=== PATIENT | male | born 1955 | race Caucasian/White ===

== ENCOUNTER 2017-08-16 13:28 | Day surgery (SDC) | payer OTHER ==
[2017-08-16] MEDS ORDERED: ONDANSETRON PF 4 MG/2 ML VIAL. (16:21)
[2017-08-16] MEDS ORDERED: fentaNYL PF VIAL 100 MCG/2 ML VIAL ×2 (16:21→18:44)
[2017-08-16] MEDS ORDERED: PROPOFOL 20 ML IV (16:21)
[2017-08-16] MEDS ORDERED: DEXAMETHASONE SOD PHOS 20 MG/5 ML VIAL. (16:21)
[2017-08-16] MEDS ORDERED: ROCURONIUM 50 MG/5 ML VIAL. (17:03)
[2017-08-16] MEDS: CHLORHEXIDINE 0.12% 15 ML MOUTHWASH. SWSP (17:25)
[2017-08-16] MEDS: BUPIVACAINE-EPI 0.25%-1:200000 50 ML VIAL. (17:25)
[2017-08-16] MEDS: GELATIN SPONGE SIZE 100. (17:39)
[2017-08-16] MEDS ORDERED: GLYCOPYRROLATE 1 MG/5 ML VIAL. (18:00)
[2017-08-16] MEDS: fentaNYL PF VIAL 100 MCG/2 ML VIAL IV ×2 (18:54→19:24)
[2017-08-16] MEDS: IV RINGERS,LACTATED 1000ML 1,000 ML IV (18:54)
[2017-08-16] MEDS ORDERED: PROCHLORPERAZINE 10 MG/2 ML VIAL. IV (19:00)
[2017-08-16] MEDS ORDERED: MORPHINE SULFATE 4 MG/ML DISP.SYRIN. IV (19:00)
[2017-08-16] MEDS ORDERED: ONDANSETRON PF 4 MG/2 ML VIAL. IV (19:00)
[2017-08-16] MEDS ORDERED: LIDOCAINE 1% PF 2 ML VIAL. ID (19:00)
[2017-08-16] MEDS ORDERED: fentaNYL PF VIAL 100 MCG/2 ML VIAL IV (19:00)
[2017-08-16] MEDS: HYDROcodone/APAP 5/325MG 1 TAB TABLET PO (19:23)
[2017-08-17] MEDS ORDERED: fentaNYL PF VIAL 100 MCG/2 ML VIAL (14:19)
[2017-08-18 08:04] LABS: POC GLUCOSE 101 mg/dL (70-99)
== END 2017-08-16 20:21 | disposition home or self-care (01) ==
LOC: SURG 13:28
DX: K02.9 Dental caries, unspecified (principal); I12.9 Hypertensive chronic kidney disease with stage 1 through stage 4 chronic kidney disease, or unspecified chronic kidney disease; E11.22 Type 2 diabetes mellitus with diabetic chronic kidney disease; N18.9 Chronic kidney disease, unspecified; G47.33 Obstructive sleep apnea (adult) (pediatric)
CPT/HCPCS: 41874; J0690; J1100; J2405; J2704; J3010; J3490

== ENCOUNTER 2021-09-24 00:32 | Inpatient (IN) | payer MEDICARE, OTHER ==
[~2021-09-24] VITALS: Ht 180.3 cm; Wt 111.5 kg
[~2021-09-24 00:32] MED LIST: ACET325T9 PO; ERGO500027 PO; GABA-689 PO; LEVE500T6 PO; LISI2.5T12 PO; PRAV40TA2 PO; RANI150T2 PO; SERT100T PO; TRAM50TA PO
[2021-09-24] MEDS ORDERED: FUROSEMIDE 40 MG/4 ML VIAL. IVP ONE (01:30)
--- NOTE | 2021-09-24 01:31 | RAD ---
Chest radiograph 09/24/2021 1:13 AM INDICATION: Shortness of breath, CHF COMPARISON: None available TECHNIQUE: Frontal and lateral views of the chest are provided. FINDINGS: The cardiomediastinal silhouette is within normal limits. Median sternotomy changes are present. Left chest wall cardiac device is identified with leads projecting over the right atrium and right ventri lalo. There are no pleural effusions. There is no pulmonary vascular congestion. There is no pneumothorax. The lungs are clear. COPD changes are present. No significant osseous abnormality is identified. IMPRESSION: COPD changes without acute cardiopulmonary process. Electronically signed by: Katheryn Head MD (09/24/2021 1:29 AM) RITA
[2021-09-24 01:46] LABS: BASO # 0.1 x10^3/uL (0.0-0.2); BASO % 1 % (0-3); EOS # 0.3 x10^3/uL (0.0-0.7); EOS % 4 % (0-3); HEMATOCRIT 27.9 % (39.0-53.0); HEMOGLOBIN 9.8 g/dL (13.0-17.5); LYMPH # 1.5 x10^3/uL (1.0-4.8); LYMPH % 18 % (24-48); MEAN CORPUSCULAR HEMOGLOBIN 34 pg (25-35); MEAN CORPUSCULAR HGB CONC 35 g/dL (31-37); MEAN CORPUSCULAR VOLUME 98 fL (79-100); MONO # 0.5 x10^3/uL (0.0-1.1); MONO % 6 % (0-9); NEUT # 5.8 x10^3/uL (1.8-7.7); NEUT % 71 % (31-73); PLATELET COUNT 131 x10^3/uL (140-400); RED BLOOD COUNT 2.85 x10^6/uL (4.30-5.70); RED CELL DISTRIBUTION WIDTH 14.4 % (11.5-14.5); WHITE BLOOD COUNT 8.3 x10^3/uL (4.0-11.0)
[2021-09-24 01:55] LABS: CALCIUM 7.4 mg/dL (8.5-10.1); CREATININE 10.3 mg/dL (0.7-1.3); GFR 5.1; POTASSIUM 5.1 mmol/L (3.5-5.1)
[2021-09-24 02:03] LABS: ALBUMIN 3.2 g/dL (3.4-5.0); ALBUMIN/GLOBULIN RATIO 0.9 (1.0-1.7); TOTAL BILIRUBIN 0.3 mg/dL (0.2-1.0); TOTAL PROTEIN 6.6 g/dL (6.4-8.2)
[2021-09-24] MEDS ORDERED: IPRATRPIUM/ALBUTEROL 0.5/2.5MG 3 ML NEBU. NEB ONE (02:30)
--- NOTE | 2021-09-24 03:24 | EKG ---
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
[2021-09-24] MEDS ORDERED: DOCU100C28 PO (04:05)
[2021-09-24] MEDS ORDERED: MELA3TAB43 PO (04:05)
[2021-09-24] MEDS ORDERED: ERGO500089 PO (04:05)
[2021-09-24] MEDS ORDERED: MECL12.582 PO (04:05)
[2021-09-24] MEDS ORDERED: FOLI1CAP10 PO (04:05)
[2021-09-24] MEDS ORDERED: OMEG100021 PO (04:05)
[2021-09-24] MEDS ORDERED: LEVE500T21 PO (04:05)
[2021-09-24] MEDS ORDERED: CARV25TA2 PO (04:05)
[2021-09-24] MEDS ORDERED: TRAM50TA PO (04:05)
[2021-09-24] MEDS ORDERED: VITA1TAB19 PO (04:05)
[2021-09-24] MEDS ORDERED: CALC667T4 PO (04:05)
[2021-09-24] MEDS ORDERED: OMEP20CA16 PO (04:05)
[2021-09-24] MEDS ORDERED: ATOR80TA72 PO (04:05)
[2021-09-24] MEDS ORDERED: FURO40TA4 PO (04:05)
--- NOTE | 2021-09-24 04:24 | PHYS DOC ---
Past Medical History Additional Past Medical Histor: PACEMAKER/DEFIB Past Surgical History: Angioplasty General Adult EDM: Chief Complaint: SHORTNESS OF BREATH HPI: HPI: Patient is a 66-year-old male who was supposed to be on dialysis but abruptly quit on his own several weeks ago who presents today with shortness of breath. Past medical history of CHF. Patient has difficulty sleeping while laying flat. No fever or chills. No cough or sputum production. Significant smoking history. No chest pain currently. Review of Systems: Review of Systems: Constitutional: Denies fever or chills. [] Eyes: Denies change in visual acuity. [] HENT: Denies nasal congestion or sore throat. [] Respiratory: Denies cough or shortness of breath. [] Cardiovascular: No chest pain, positive for orthopnea GI: Denies abdominal pain, nausea, vomiting, bloody stools or diarrhea. [] : Denies dysuria. [] Musculoskeletal: Denies back pain or joint pain. [] Integument: Denies rash. [] Neurologic: Denies headache, focal weakness or sensory changes. [] Endocrine: Denies polyuria or polydipsia. [] Lymphatic: Denies swollen glands. [] Psychiatric: Denies depression or anxiety. [] Heart Score: C/O Chest Pain: No Risk Factors: Risk Factors: DM, Current or recent (<one month) smoker, HTN, HLP, family history of CAD, obesity. Risk Scores: Score 0 - 3: 2.5% MACE over next 6 weeks - Discharge Home Score 4 - 6: 20.3% MACE over next 6 weeks - Admit for Clinical Observation Score 7 - 10: 72.7% MACE over next 6 weeks - Early Invasive Strategies Current Medications: Current Medications Medications (Trade) Dose Ordered Sig/René Start Time Stop Time Status Last Admin Dose Admin Albuterol/ Ipratropium (Duoneb) 6 ml 1X ONCE 09/24/21 02:30 09/24/21 02:31 DC 09/24/21 03:09 6 ML Furosemide (Lasix) 60 mg 1X ONCE 09/24/21 01:30 09/24/21 01:31 DC 09/24/21 02:18 60 MG Lorazepam (Ativan Inj) 2 mg 1X ONCE 09/24/21 04:00 09/24/21 04:01 DC 09/24/21 04:03 2 MG Allergies: Allergies: Allergies Coded Allergies Type Severity Reaction Last Updated Verified No Known Drug Allergies 08/16/17 No Physical Exam: PE: Constitutional: Well developed, well nourished, no acute distress, non-toxic appearance. [] HENT: Normocephalic, atraumatic, bilateral external ears normal, oropharynx moist, no oral exudates, nose normal. [] Eyes: PERRLA, EOMI, conjunctiva normal, no discharge. [] Neck: Normal range of motion, no tenderness, supple, no stridor. [] Cardiovascular:Heart rate regular rhythm, no murmur [] Lungs & Thorax: Diminished breath sounds bilateral Abdomen: Bowel sounds normal, soft, no tenderness, no masses, no pulsatile masses. [] Skin: Warm, dry, no erythema, no rash. [] Back: No tenderness, no CVA tenderness. [] Extremities: No tenderness, no cyanosis, no clubbing, ROM intact, no edema. [] Neurologic: Alert and oriented X 3, normal motor function, normal sensory function, no focal deficits noted. [] Psychologic: Affect normal, judgement normal, mood normal. [] Current Patient Data: Labs: Laboratory Tests Test 09/24/21 01:35 White Blood Count 8.3 x10^3/uL (4.0-11.0) Red Blood Count 2.85 x10^6/uL (4.30-5.70) L Hemoglobin 9.8 g/dL (13.0-17.5) L Hematocrit 27.9 % (39.0-53.0) L Mean Corpuscular Volume 98 fL (79-100) Mean Corpuscular Hemoglobin 34 pg (25-35) Mean Corpuscular Hemoglobin Concent 35 g/dL (31-37) Red Cell Distribution Width 14.4 % (11.5-14.5) Platelet Count 131 x10^3/uL (140-400) L Neutrophils (%) (Auto) 71 % (31-73) Lymphocytes (%) (Auto) 18 % (24-48) L Monocytes (%) (Auto) 6 % (0-9) Eosinophils (%) (Auto) 4 % (0-3) H Basophils (%) (Auto) 1 % (0-3) Neutrophils # (Auto) 5.8 x10^3/uL (1.8-7.7) Lymphocytes # (Auto) 1.5 x10^3/uL (1.0-4.8) Monocytes # (Auto) 0.5 x10^3/uL (0.0-1.1) Eosinophils # (Auto) 0.3 x10^3/uL (0.0-0.7) Basophils # (Auto) 0.1 x10^3/uL (0.0-0.2) Sodium Level 147 mmol/L (136-145) H Potassium Level 5.1 mmol/L (3.5-5.1) Chloride Level 112 mmol/L (98-107) H Carbon Dioxide Level 14 mmol/L (21-32) L Anion Gap 21 (6-14) H Blood Urea Nitrogen 91 mg/dL (8-26) H Creatinine 10.3 mg/dL (0.7-1.3) H Estimated GFR (Cockcroft-Gault) 5.1 BUN/Creatinine Ratio 9 (6-20) Glucose Level 157 mg/dL (70-99) H Lactic Acid Level 0.5 mmol/L (0.4-2.0) Calcium Level 7.4 mg/dL (8.5-10.1) L Total Bilirubin 0.3 mg/dL (0.2-1.0) Aspartate Amino Transferase (AST) 17 U/L (15-37) Alanine Aminotransferase (ALT) 23 U/L (16-63) Alkaline Phosphatase 59 U/L (46-116) Troponin I High Sensitivity 53 ng/L (4-75) KX-Sfe-M-Type Natriuretic Peptide > 72419 pg/mL (0-124) H Total Protein 6.6 g/dL (6.4-8.2) Albumin 3.2 g/dL (3.4-5.0) L Albumin/Globulin Ratio 0.9 (1.0-1.7) L Acetone Level Neg (NEG) Laboratory Tests 09/24/21 01:35 Laboratory Tests 09/24/21 01:35 Vital Signs: Vital Signs Date Time Temp Pulse Resp B/P (MAP) Pulse Ox O2 Delivery O2 Flow Rate FiO2 09/24/21 03:09 98 Room Air 09/24/21 00:54 97.8 82 22 211/95 (133) 97.8 EKG: EKG: [] Radiology/Procedures: Radiology/Procedures: [] Course & Med Decision Making: Course & Med Decision Making Pertinent Labs and Imaging studies reviewed. (See chart for details) Patient has multiple significant lab abnormalities. I suspect a lot of this is due to him abruptly quitting dialysis. The most crucial at this moment is his metabolic acidosis. Patient states that he was at 1 point supposed to be on bicarbonate pills. Therefore I will start him on sodium bicarb 3 A since he is refusing dialysis. Chest x-ray shows signs of COPD. Patient feels slightly better after DuoNeb treatments. BNP significantly elevated. Again difficult to determine its significance in the onset of renal failure not being treated with dialysis. Patient placed on Lasix as well. Dragon Disclaimer: Dragon Disclaimer: This electronic medical record was generated, in whole or in part, using a voice recognition dictation system. Departure Departure Impression: Primary Impression: Metabolic acidosis Additional Impressions: Orthopnea COPD exacerbation CHF exacerbation Disposition: ADMITTED INPATIENT Condition: STABLE Referrals: ROQUE STEINBERG DMD (PCP) ARUN GHOTRA MD September 24, 2021 04:24
[2021-09-24] MEDS ORDERED: SODIUM BICARBONATE VIAL 150 MEQ in IV STERILE WATER 1,000 ML IV SCH (05:00)
[2021-09-24 05:14] LABS: BACTERIA,URINE 0 /HPF (0-FEW); HYALINE CASTS, URINE OCCASIONAL /HPF; RBC,URINE OCC /HPF (0-2); SPERM,URINE PRESENT /HPF
[2021-09-24 05:21] LABS: BASE EXCESS ABG -14 mmol/L (-3-3); HCO3 ABG 12 mmol/L (21-28); PCO2 ABG 25 mmHg (35-46); PO2 ABG 72 mmHg (65-108); SAT O2 ABG 92 % (92-99)
[2021-09-24 05:26] LABS: FIO2 ABG 21
--- NOTE | 2021-09-24 08:10 | PDOC1 ---
History and Physical Date of Admission Date of Admission DATE: 09/24/21 TIME: 07:55 Identification/Chief Complaint Chief Complaint Shortness of breath Source Source: Caregiver, Patient History of Present Illness History of Present Illness Patient is a 66-year-old male with past medical history CHF, HTN, DM2, ESRD, who presents to the ED with complaints of shortness of breath for the past 4 days. He reports shortness of breath with exertion, orthopnea, and associated chest pain with deep inspiration. [facility] and tells me he was on hemodialysis for 2 years but took himself off recently. States that when the [facility] told him he could not receive a kidney transplant he no longer wanted to proceed with hemodialysis. Labs on admission showed WBC 8.3, hemoglobin 9.8, hematocrit 27.9, sodium 147, BUN 91, creatinine 10.3, CBG 157, a lbumin 3.2, proBNP >35,000. His ABG showed pH 7.29, PCO2 325, PO2 72, HCO3 12. His chest x-ray showed COPD changes without acute cardiopulmonary process. While in the ED patient was refusing to wear BiPAP. He will be admitted for further medical management. Past Medical History Past Medical History CHF, CAD, ESRD, DM2, HTN Past Surgical History Past Surgical History Pacemaker/AICD, angioplasty Family History Family History: Coronary Artery Disease Social History Smoke: Quit ALCOHOL: none Drugs: None Current Problem List Problem List Problems Medical Problems: (1) CHF exacerbation Status: Acute (2) COPD exacerbation Status: Acute (3) Metabolic acidosis Status: Acute (4) Orthopnea Status: Acute Current Medications Current Medications Current Medications Furosemide (Lasix) 60 mg 1X ONCE IVP Last administered on 09/24/21at 02:18; Start 09/24/21 at 01:30; Stop 09/24/21 at 01:31; Status DC Albuterol/ Ipratropium (Duoneb) 6 ml 1X ONCE NEB Last administered on 09/24/21at 03:09; Start 09/24/21 at 02:30; Stop 09/24/21 at 02:31; Status DC Lorazepam (Ativan Inj) 2 mg 1X ONCE IVP Last administered on 09/24/21at 04:03; Start 09/24/21 at 04:00; Stop 09/24/21 at 04:01; Status DC Sodium Bicarbonate 150 meq/Sterile Water 1,150 ml @ 125 mls/hr Q9H12M IV Last administered on 09/24/21at 05:28; Start 09/24/21 at 05:00; Stop 09/25/21 at 04:59 Active Scripts Active Reported Carvedilol 25 Mg Tablet 25 Mg PO BIDWMEALS B Complex (Vitamin B Complex) 1 Each Tablet 1 Tab PO DAILY 30 Days Tramadol Hcl 50 Mg Tablet 50 Mg PO BID PRN Renal Caps Softgel (Folic Acid/Vitamin B Comp W-C) 1 Mg Capsule 1 Cap PO DAILY 30 Days Omeprazole 20 Mg Capsule.dr 1 Cap PO DAILY Melatonin 3 Mg Tab.rapdis 1 Tab PO QHS 30 Days Meclizine Hcl 12.5 Mg Tablet 1 Tab PO BID Levetiracetam 500 Mg Tab.er.24h 500 Mg PO DAILY Furosemide 40 Mg Tablet 1 Tab PO DAILY Fish Oil 1,000 mg Softgel ([place]-3/Dha/Epa/Fish Oil) 1,000 Mg Capsule 1,000 Mg PO BID Vitamin D2 (Ergocalciferol (Vitamin D2)) 1,250 Mcg Capsule 1,250 Mcg PO WEEKLY Docusate Sodium 100 Mg Capsule 1 Cap PO BID 7 Days Calcium Acetate 667 Mg Tablet 3 Tab PO TID 30 Days Atorvastatin Calcium 80 Mg Tablet 80 Mg PO QHS Levetiracetam 500 Mg Tablet 63 Mg PO QHS Pravastatin Sodium 40 Mg Tablet 1 Tab PO QHS Zoloft (Sertraline Hcl) 100 Mg Tablet 1 Tab PO DAILY Tylenol (Acetaminophen) 325 Mg Tablet 650 Mg PO Q8HRS PRN Gabapentin (Gabapentin) 400 Mg Capsule 400 Mg PO BID Vitamin D2 (Ergocalciferol (Vitamin D2)) 50,000 Unit Capsule 1 Cap PO WEEKLY Ranitidine Hcl 150 Mg Tablet 150 Mg PO DAILY Lisinopril 2.5 Mg Tablet 1 Tab PO DAILY Tramadol Hcl 50 Mg Tablet 100 Mg PO BID PRN Allergies Allergies: Coded Allergies: No Known Drug Allergies (Unverified , 08/16/17) ROS Review of System GENERAL: No history of weight change, weakness or fevers. SKIN: No bruising, hair changes or rashes. EYES: No blurred, double or loss of vision. NOSE AND THROAT: No history of nosebleeds, hoarseness or sore throat. HEART: Chest pain. Denies palpitations. LUNGS: Shortness of breath, orthopnea. Denies hemoptysis or wheezing. GASTROINTESTINAL: Denies nausea, vomiting, abdominal pain. GENITOURINARY: Denies dysuria, frequency, urgency, hematuria. NEUROLOGIC: Denies history of numbness, tingling, tremor or weakness. PSYCHIATRIC: Denies anxiety, denies depression. ENDOCRINE: No history of heat or cold intolerance, polyuria or polydipsia. EXTREMITIES: Denies muscle weakness, joint pain, pain on walking or stiffness. Physical Exam Physical Exam General: Alert, Oriented X3, Cooperative, mild distress HEENT: Atraumatic, EOMI Lungs: Bibasilar rales Heart: RRR, no rubs. Pacer to left chest wall. Cardiovascular: S1, S2 Abdomen: Normal bowel sounds, Soft, No tenderness Extremities: No significant lower extremity edema Skin: No breakdown, No significant lesion Neuro: Normal speech, Sensation intact Psych/Mental Status: Mental status NL, Mood NL Vitals Vitals Vital Signs Date Time Temp Pulse Resp B/P (MAP) Pulse Ox O2 Delivery O2 Flow Rate FiO2 09/24/21 05:55 83 20 94 Room Air 09/24/21 03:30 186/88 (120) 09/24/21 01:30 98.2 98.2 Labs Labs Laboratory Tests Test 09/24/21 01:35 09/24/21 05:00 09/24/21 05:15 White Blood Count 8.3 x10^3/uL (4.0-11.0) Red Blood Count 2.85 x10^6/uL (4.30-5.70) Hemoglobin 9.8 g/dL (13.0-17.5) Hematocrit 27.9 % (39.0-53.0) Mean Corpuscular Volume 98 fL (79-100) Mean Corpuscular Hemoglobin 34 pg (25-35) Mean Corpuscular Hemoglobin Concent 35 g/dL (31-37) Red Cell Distribution Width 14.4 % (11.5-14.5) Platelet Count 131 x10^3/uL (140-400) Neutrophils (%) (Auto) 71 % (31-73) Lymphocytes (%) (Auto) 18 % (24-48) Monocytes (%) (Auto) 6 % (0-9) Eosinophils (%) (Auto) 4 % (0-3) Basophils (%) (Auto) 1 % (0-3) Neutrophils # (Auto) 5.8 x10^3/uL (1.8-7.7) Lymphocytes # (Auto) 1.5 x10^3/uL (1.0-4.8) Monocytes # (Auto) 0.5 x10^3/uL (0.0-1.1) Eosinophils # (Auto) 0.3 x10^3/uL (0.0-0.7) Basophils # (Auto) 0.1 x10^3/uL (0.0-0.2) Sodium Level 147 mmol/L (136-145) Potassium Level 5.1 mmol/L (3.5-5.1) Chloride Level 112 mmol/L (98-107) Carbon Dioxide Level 14 mmol/L (21-32) Anion Gap 21 (6-14) Blood Urea Nitrogen 91 mg/dL (8-26) Creatinine 10.3 mg/dL (0.7-1.3) Estimated GFR (Cockcroft-Gault) 5.1 BUN/Creatinine Ratio 9 (6-20) Glucose Level 157 mg/dL (70-99) Lactic Acid Level 0.5 mmol/L (0.4-2.0) Calcium Level 7.4 mg/dL (8.5-10.1) Total Bilirubin 0.3 mg/dL (0.2-1.0) Aspartate Amino Transf (AST/SGOT) 17 U/L (15-37) Alanine Aminotransferase (ALT/SGPT) 23 U/L (16-63) Alkaline Phosphatase 59 U/L (46-116) Troponin I High Sensitivity 53 ng/L (4-75) JY-Xgs-P-Type Natriuretic Peptide > 30001 pg/mL (0-124) Total Protein 6.6 g/dL (6.4-8.2) Albumin 3.2 g/dL (3.4-5.0) Albumin/Globulin Ratio 0.9 (1.0-1.7) Acetone Level Neg (NEG) Urine Collection Type Unknown Urine Color (Auto) Light yellow Urine Turbidity Clear Urine pH (Auto) 6.0 (<5.0-8.0) Urine Specific Shaw 1.016 (1.000-1.030) Urine Protein (Auto) 300 mg/dL (Negative) Urine Glucose (Auto)(UA) 200 mg/dL (Negative) Urine Ketones (Auto) Negative mg/dL (Negative) Urine Blood (Auto) Small (Negative) Urine Nitrite Negative (Negative) Urine Bilirubin (Auto) Negative (Negative) Urine Urobilinogen (Auto) Normal mg/dL (Normal) Urine Leukocyte Esterase (Auto) Negative (Negative) Urine RBC Occ /HPF (0-2) Urine WBC 1-4 /HPF (0-4) Urine Squamous Epithelial Cells Occ /LPF Urine Bacteria 0 /HPF (0-FEW) Urine Hyaline Casts Occasional /HPF Urine Mucus Slight /LPF Urine Sperm Present /HPF O2 Saturation 92 % (92-99) Arterial Blood pH 7.29 (7.35-7.45) Arterial Blood pCO2 at Patient Temp 25 mmHg (35-46) Arterial Blood pO2 at Patient Temp 72 mmHg (65-108) Arterial Blood HCO3 12 mmol/L (21-28) Arterial Blood Base Excess -14 mmol/L (-3-3) FiO2 21 Laboratory Tests Test 09/24/21 01:35 09/24/21 05:00 09/24/21 05:15 White Blood Count 8.3 x10^3/uL (4.0-11.0) Red Blood Count 2.85 x10^6/uL (4.30-5.70) Hemoglobin 9.8 g/dL (13.0-17.5) Hematocrit 27.9 % (39.0-53.0) Mean Corpuscular Volume 98 fL (79-100) Mean Corpuscular Hemoglobin 34 pg (25-35) Mean Corpuscular Hemoglobin Concent 35 g/dL (31-37) Red Cell Distribution Width 14.4 % (11.5-14.5) Platelet Count 131 x10^3/uL (140-400) Neutrophils (%) (Auto) 71 % (31-73) Lymphocytes (%) (Auto) 18 % (24-48) Monocytes (%) (Auto) 6 % (0-9) Eosinophils (%) (Auto) 4 % (0-3) Basophils (%) (Auto) 1 % (0-3) Neutrophils # (Auto) 5.8 x10^3/uL (1.8-7.7) Lymphocytes # (Auto) 1.5 x10^3/uL (1.0-4.8) Monocytes # (Auto) 0.5 x10^3/uL (0.0-1.1) Eosinophils # (Auto) 0.3 x10^3/uL (0.0-0.7) Basophils # (Auto) 0.1 x10^3/uL (0.0-0.2) Sodium Level 147 mmol/L (136-145) Potassium Level 5.1 mmol/L (3.5-5.1) Chloride Level 112 mmol/L (98-107) Carbon Dioxide Level 14 mmol/L (21-32) Anion Gap 21 (6-14) Blood Urea Nitrogen 91 mg/dL (8-26) Creatinine 10.3 mg/dL (0.7-1.3) Estimated GFR (Cockcroft-Gault) 5.1 BUN/Creatinine Ratio 9 (6-20) Glucose Level 157 mg/dL (70-99) Lactic Acid Level 0.5 mmol/L (0.4-2.0) Calcium Level 7.4 mg/dL (8.5-10.1) Total Bilirubin 0.3 mg/dL (0.2-1.0) Aspartate Amino Transf (AST/SGOT) 17 U/L (15-37) Alanine Aminotransferase (ALT/SGPT) 23 U/L (16-63) Alkaline Phosphatase 59 U/L (46-116) Troponin I High Sensitivity 53 ng/L (4-75) SA-Gsh-H-Type Natriuretic Peptide > 69134 pg/mL (0-124) Total Protein 6.6 g/dL (6.4-8.2) Albumin 3.2 g/dL (3.4-5.0) Albumin/Globulin Ratio 0.9 (1.0-1.7) Acetone Level Neg (NEG) Urine Collection Type Unknown Urine Color (Auto) Light yellow Urine Turbidity Clear Urine pH (Auto) 6.0 (<5.0-8.0) Urine Specific Shaw 1.016 (1.000-1.030) Urine Protein (Auto) 300 mg/dL (Negative) Urine Glucose (Auto)(UA) 200 mg/dL (Negative) Urine Ketones (Auto) Negative mg/dL (Negative) Urine Blood (Auto) Small (Negative) Urine Nitrite Negative (Negative) Urine Bilirubin (Auto) Negative (Negative) Urine Urobilinogen (Auto) Normal mg/dL (Normal) Urine Leukocyte Esterase (Auto) Negative (Negative) Urine RBC Occ /HPF (0-2) Urine WBC 1-4 /HPF (0-4) Urine Squamous Epithelial Cells Occ /LPF Urine Bacteria 0 /HPF (0-FEW) Urine Hyaline Casts Occasional /HPF Urine Mucus Slight /LPF Urine Sperm Present /HPF O2 Saturation 92 % (92-99) Arterial Blood pH 7.29 (7.35-7.45) Arterial Blood pCO2 at Patient Temp 25 mmHg (35-46) Arterial Blood pO2 at Patient Temp 72 mmHg (65-108) Arterial Blood HCO3 12 mmol/L (21-28) Arterial Blood Base Excess -14 mmol/L (-3-3) FiO2 21 Images Images PATIENT: LILLIAN VILLATORO ACCOUNT: [id number] : 1955 LOCATION: ER AGE: 66 SEX: M EXAM STATUS: PRE ER ORD. PHYSICIAN: ARUN GHOTRA MD REASON: SOB, CHF? PROCEDURE: CHEST PA & LATERAL Chest radiograph 09/24/2021 1:13 AM INDICATION: Shortness of breath, CHF COMPARISON: None available TECHNIQUE: Frontal and lateral views of the chest are provided. FINDINGS: The cardiomediastinal silhouette is within normal limits. Median sternotomy caroline nges are present. Left chest wall cardiac device is identified with leads projecting over the right atrium and right ventricle. There are no pleural effusions. There is no pulmonary vascular congestion. There is no pneumothorax. The lungs are clear. COPD changes are present. No significant osseous abnormality is identified. IMPRESSION: COPD changes without acute cardiopulmonary process. VTE Prophylaxis Ordered VTE Prophylaxis Devices: No VTE Pharmacological Prophylaxi: Yes Assessment/Plan Assessment/Plan Acute respiratory failure with hypoxia Acute CHF exacerbation Metabolic acidosis Volume overload ESRD not currently on dialysis DM2 with hyperglycemia Normocytic anemia Plan: Will place consultation to cardiology and nephrology Patient is adamant about not resuming hemodialysis, but states he still makes urine. We will diurese aggressively and make attempts to have patient resume HD. Echocardiogram pending Please consultation to pulmonology to help with management of COPD Blood glucose not significantly elevated on admission. Hemoglobin A1c pending. If his blood sugar consistently elevated above 180 will initiate basal insulin and sliding scale insulin. Replace bicarbonate as needed IV hydralazine as needed Resume home medications FEN - Renal diet PPX - Heparin DNR/patient names his friend (Joana Evangelista) as surrogate decision-maker Dispo - inpatient for above Justifications for Admission Other Justification BHARGAVI BUI MD September 24, 2021 08:10
[2021-09-24] MEDS ORDERED: MAG HYDROX/ALUMINUM HYD/SIMETH 30 ML ORAL.SUSP PO PRN (08:15)
[2021-09-24] MEDS ORDERED: MAGNESIUM HYDROXIDE 2,400 MG/30 ML ORAL.SUSP. PO PRN (08:15)
[2021-09-24] MEDS ORDERED: HYDROcodone/APAP 5/325MG 1 TAB TABLET PO PRN (08:15)
[2021-09-24] MEDS ORDERED: MORPHINE SULFATE 2 MG/ML INJ. IV PRN (08:15)
[2021-09-24] MEDS ORDERED: ZOLPIDEM 5 MG TABLET. PO PRN (08:15)
[2021-09-24] MEDS ORDERED: ONDANSETRON PF 4 MG/2 ML VIAL. IVP PRN (08:15)
[2021-09-24] MEDS ORDERED: FUROSEMIDE 40 MG/4 ML VIAL. IVP SCH (09:00)
--- NOTE | 2021-09-24 09:06 | PDOC ---
PULMONARY PROGRESS NOTES DATE: 09/24/21 TIME: 09:05 Vitals Vital Signs Date Time Temp Pulse Resp B/P (MAP) Pulse Ox O2 Delivery O2 Flow Rate FiO2 09/24/21 07:49 92 208/99 (135) 96 Room Air 09/24/21 05:55 20 09/24/21 01:30 98.2 98.2 Labs Laboratory Tests Test 09/24/21 01:35 09/24/21 05:00 09/24/21 05:15 09/24/21 08:52 White Blood Count 8.3 x10^3/uL (4.0-11.0) Red Blood Count 2.85 x10^6/uL (4.30-5.70) Hemoglobin 9.8 g/dL (13.0-17.5) Hematocrit 27.9 % (39.0-53.0) Mean Corpuscular Volume 98 fL (79-100) Mean Corpuscular Hemoglobin 34 pg (25-35) Mean Corpuscular Hemoglobin Concent 35 g/dL (31-37) Red Cell Distribution Width 14.4 % (11.5-14.5) Platelet Count 131 x10^3/uL (140-400) Neutrophils (%) (Auto) 71 % (31-73) Lymphocytes (%) (Auto) 18 % (24-48) Monocytes (%) (Auto) 6 % (0-9) Eosinophils (%) (Auto) 4 % (0-3) Basophils (%) (Auto) 1 % (0-3) Neutrophils # (Auto) 5.8 x10^3/uL (1.8-7.7) Lymphocytes # (Auto) 1.5 x10^3/uL (1.0-4.8) Monocytes # (Auto) 0.5 x10^3/uL (0.0-1.1) Eosinophils # (Auto) 0.3 x10^3/uL (0.0-0.7) Basophils # (Auto) 0.1 x10^3/uL (0.0-0.2) Sodium Level 147 mmol/L (136-145) Potassium Level 5.1 mmol/L (3.5-5.1) Chloride Level 112 mmol/L (98-107) Carbon Dioxide Level 14 mmol/L (21-32) Anion Gap 21 (6-14) Blood Urea Nitrogen 91 mg/dL (8-26) Creatinine 10.3 mg/dL (0.7-1.3) Estimated GFR (Cockcroft-Gault) 5.1 BUN/Creatinine Ratio 9 (6-20) Glucose Level 157 mg/dL (70-99) Lactic Acid Level 0.5 mmol/L (0.4-2.0) Calcium Level 7.4 mg/dL (8.5-10.1) Total Bilirubin 0.3 mg/dL (0.2-1.0) Aspartate Amino Transf (AST/SGOT) 17 U/L (15-37) Alanine Aminotransferase (ALT/SGPT) 23 U/L (16-63) Alkaline Phosphatase 59 U/L (46-116) Troponin I High Sensitivity 53 ng/L (4-75) XR-Owq-I-Type Natriuretic Peptide > 00900 pg/mL (0-124) Total Protein 6.6 g/dL (6.4-8.2) Albumin 3.2 g/dL (3.4-5.0) Albumin/Globulin Ratio 0.9 (1.0-1.7) Acetone Level Neg (NEG) Urine Collection Type Unknown Urine Color (Auto) Light yellow Urine Turbidity Clear Urine pH (Auto) 6.0 (<5.0-8.0) Urine Specific [place] 1.016 (1.000-1.030) Urine Protein (Auto) 300 mg/dL (Negative) Urine Glucose (Auto)(UA) 200 mg/dL (Negative) Urine Ketones (Auto) Negative mg/dL (Negative) Urine Blood (Auto) Small (Negative) Urine Nitrite Negative (Negative) Urine Bilirubin (Auto) Negative (Negative) Urine Urobilinogen (Auto) Normal mg/dL (Normal) Urine Leukocyte Esterase (Auto) Negative (Negative) Urine RBC Occ /HPF (0-2) Urine WBC 1-4 /HPF (0-4) Urine Squamous Epithelial Cells Occ /LPF Urine Bacteria 0 /HPF (0-FEW) Urine Hyaline Casts Occasional /HPF Urine Mucus Slight /LPF Urine Sperm Present /HPF O2 Saturation 92 % (92-99) Arterial Blood pH 7.29 (7.35-7.45) Arterial Blood pCO2 at Patient Temp 25 mmHg (35-46) Arterial Blood pO2 at Patient Temp 72 mmHg (65-108) Arterial Blood HCO3 12 mmol/L (21-28) Arterial Blood Base Excess -14 mmol/L (-3-3) FiO2 21 Glucose (Fingerstick) 130 mg/dL (70-99) Laboratory Tests Test 09/24/21 01:35 09/24/21 05:00 09/24/21 05:15 09/24/21 08:52 White Blood Count 8.3 x10^3/uL (4.0-11.0) Red Blood Count 2.85 x10^6/uL (4.30-5.70) Hemoglobin 9.8 g/dL (13.0-17.5) Hematocrit 27.9 % (39.0-53.0) Mean Corpuscular Volume 98 fL (79-100) Mean Corpuscular Hemoglobin 34 pg (25-35) Mean Corpuscular Hemoglobin Concent 35 g/dL (31-37) Red Cell Distribution Width 14.4 % (11.5-14.5) Platelet Count 131 x10^3/uL (140-400) Neutrophils (%) (Auto) 71 % (31-73) Lymphocytes (%) (Auto) 18 % (24-48) Monocytes (%) (Auto) 6 % (0-9) Eosinophils (%) (Auto) 4 % (0-3) Basophils (%) (Auto) 1 % (0-3) Neutrophils # (Auto) 5.8 x10^3/uL (1.8-7.7) Lymphocytes # (Auto) 1.5 x10^3/uL (1.0-4.8) Monocytes # (Auto) 0.5 x10^3/uL (0.0-1.1) Eosinophils # (Auto) 0.3 x10^3/uL (0.0-0.7) Basophils # (Auto) 0.1 x10^3/uL (0.0-0.2) Sodium Level 147 mmol/L (136-145) Potassium Level 5.1 mmol/L (3.5-5.1) Chloride Level 112 mmol/L (98-107) Carbon Dioxide Level 14 mmol/L (21-32) Anion Gap 21 (6-14) Blood Urea Nitrogen 91 mg/dL (8-26) Creatinine 10.3 mg/dL (0.7-1.3) Estimated GFR (Cockcroft-Gault) 5.1 BUN/Creatinine Ratio 9 (6-20) Glucose Level 157 mg/dL (70-99) Lactic Acid Level 0.5 mmol/L (0.4-2.0) Calcium Level 7.4 mg/dL (8.5-10.1) Total Bilirubin 0.3 mg/dL (0.2-1.0) Aspartate Amino Transf (AST/SGOT) 17 U/L (15-37) Alanine Aminotransferase (ALT/SGPT) 23 U/L (16-63) Alkaline Phosphatase 59 U/L (46-116) Troponin I High Sensitivity 53 ng/L (4-75) JJ-Hvx-U-Type Natriuretic Peptide > 44517 pg/mL (0-124) Total Protein 6.6 g/dL (6.4-8.2) Albumin 3.2 g/dL (3.4-5.0) Albumin/Globulin Ratio 0.9 (1.0-1.7) Acetone Level Neg (NEG) Urine Collection Type Unknown Urine Color (Auto) Light yellow Urine Turbidity Clear Urine pH (Auto) 6.0 (<5.0-8.0) Urine Specific [place] 1.016 (1.000-1.030) Urine Protein (Auto) 300 mg/dL (Negative) Urine Glucose (Auto)(UA) 200 mg/dL (Negative) Urine Ketones (Auto) Negative mg/dL (Negative) Urine Blood (Auto) Small (Negative) Urine Nitrite Negative (Negative) Urine Bilirubin (Auto) Negative (Negative) Urine Urobilinogen (Auto) Normal mg/dL (Normal) Urine Leukocyte Esterase (Auto) Negative (Negative) Urine RBC Occ /HPF (0-2) Urine WBC 1-4 /HPF (0-4) Urine Squamous Epithelial Cells Occ /LPF Urine Bacteria 0 /HPF (0-FEW) Urine Hyaline Casts Occasional /HPF Urine Mucus Slight /LPF Urine Sperm Present /HPF O2 Saturation 92 % (92-99) Arterial Blood pH 7.29 (7.35-7.45) Arterial Blood pCO2 at Patient Temp 25 mmHg (35-46) Arterial Blood pO2 at Patient Temp 72 mmHg (65-108) Arterial Blood HCO3 12 mmol/L (21-28) Arterial Blood Base Excess -14 mmol/L (-3-3) FiO2 21 Glucose (Fingerstick) 130 mg/dL (70-99) Medications Active Scripts Medications Dose Route/Sig Max Daily Dose Days Date Category Carvedilol 25 Mg Tablet 25 Mg PO BIDWMEALS 09/24/21 Reported B Complex (Vitamin B Complex) 1 Each Tablet 1 Tab PO DAILY 30 09/24/21 Reported Tramadol Hcl 50 Mg Tablet 50 Mg PO BID PRN 09/24/21 Reported Renal Caps Softgel (Folic Acid/Vitamin B Comp W-C) 1 Mg Capsule 1 Cap PO DAILY 30 09/24/21 Reported Omeprazole 20 Mg Capsule.dr 1 Cap PO DAILY 09/24/21 Reported Melatonin 3 Mg Tab.rapdis 1 Tab PO QHS 30 09/24/21 Reported Meclizine Hcl 12.5 Mg Tablet 1 Tab PO BID 09/24/21 Reported Levetiracetam 500 Mg Tab.er.24h 500 Mg PO DAILY 09/24/21 Reported Furosemide 40 Mg Tablet 1 Tab PO DAILY 09/24/21 Reported Fish Oil 1,000 mg Softgel ([place]-3/Dha/Epa/Fish Oil) 1,000 Mg Capsule 1,000 Mg PO BID 09/24/21 Reported Vitamin D2 (Ergocalciferol (Vitamin D2)) 1,250 Mcg Capsule 1,250 Mcg PO WEEKLY 09/24/21 Reported Docusate Sodium 100 Mg Capsule 1 Cap PO BID 7 09/24/21 Reported Calcium Acetate 667 Mg Tablet 3 Tab PO TID 30 09/24/21 Reported Atorvastatin Calcium 80 Mg Tablet 80 Mg PO QHS 09/24/21 Reported Levetiracetam 500 Mg Tablet 63 Mg PO QHS 08/16/17 Reported Pravastatin Sodium 40 Mg Tablet 1 Tab PO QHS 08/16/17 Reported Zoloft (Sertraline Hcl) 100 Mg Tablet 1 Tab PO DAILY 08/16/17 Reported Tylenol (Acetaminophen) 325 Mg Tablet 650 Mg PO Q8HRS PRN 08/16/17 Reported Gabapentin (Gabapentin) 400 Mg Capsule 400 Mg PO BID 08/16/17 Reported Vitamin D2 (Ergocalciferol (Vitamin D2)) 50,000 Unit Capsule 1 Cap PO WEEKLY 08/16/17 Reported Ranitidine Hcl 150 Mg Tablet 150 Mg PO DAILY 08/16/17 Reported Lisinopril 2.5 Mg Tablet 1 Tab PO DAILY 08/16/17 Reported Tramadol Hcl 50 Mg Tablet 100 Mg PO BID PRN 08/16/17 Reported Impression . Full consult dictated Metabolic acidosis COPD leading to severe respiratory distress, patient refuses hemodialysis Continue current support Clinical symptoms and signs of obstructive sleep apnea, requires outpatient polysomnogram JINA OCAMPO MD September 24, 2021 09:06
[2021-09-24 09:20] LABS: CHOLESTEROL/HDL RATIO 3.9
[2021-09-24 10:41] LABS: CALCIUM 7.7 mg/dL (8.5-10.1); CREATININE 10.2 mg/dL (0.7-1.3); GFR 5.2; POTASSIUM 5.4 mmol/L (3.5-5.1)
[2021-09-24 11:00] VITALS: BP 219/95
[2021-09-24] MEDS: hydrALAZINE 20 MG/ML VIAL. IVP PRN ×2 (11:44→20:03)
--- NOTE | 2021-09-24 11:44 | PDOC2 ---
CONSULT Date of Consult Date of Consult DATE: 09/24/21 TIME: 11:37 Reason for Consult Reason for Consult: RENAL FAILURE Referring Physician Referring Physician: RAMYA Identification/Chief Complaint Chief Complaint SOB Source Source: Chart review, Patient History of Present Illness Reason for Visit: THIS IS A 66 YR WITH ESRD DUE TO DM II. [place] BE[place]. BUT STOPPED GOING TO [place] WHEN HE WAS TOLD HE WAS NOT A TRANSPLANT CANDIDATE. HAS A RIGHT ARM AVF. HAD BEEN ON HD FOR 2 YEARS THEN STOPPED ABOUT 3 MONTHS AGO. LABS C/W ESRD. HE HAS VOLUME OVERLOAD. HYPOXIC IN THE ER. REFUSED TO WEAR A BIPAP Past Medical History Cardiovascular: CHF, HTN Pulmonary: Asthma Heme/Onc: Anemia NOS Renal/: Chronic renal failure Endocrine: Diabetes, Hyperparathyroidism Past Surgical History Past Surgical History RIGHT ARM AVF Family History Family History: Coronary Artery Disease Social History Quit ALCOHOL: none Drugs: None Lives: with Family Current Problem List Problem List Problems Medical Problems: (1) CHF exacerbation Status: Acute (2) COPD exacerbation Status: Acute (3) Metabolic acidosis Status: Acute (4) Orthopnea Status: Acute Current Medications Current Medications Current Medications Furosemide (Lasix) 60 mg 1X ONCE IVP Last administered on 09/24/21at 02:18; Start 09/24/21 at 01:30; Stop 09/24/21 at 01:31; Status DC Albuterol/ Ipratropium (Duoneb) 6 ml 1X ONCE NEB Last administered on 09/24/21at 03:09; Start 09/24/21 at 02:30; Stop 09/24/21 at 02:31; Status DC Lorazepam (Ativan Inj) 2 mg 1X ONCE IVP Last administered on 09/24/21at 04:03; Start 09/24/21 at 04:00; Stop 09/24/21 at 04:01; Status DC Sodium Bicarbonate 150 meq/Sterile Water 1,150 ml @ 125 mls/hr Q9H12M IV Last administered on 09/24/21at 05:28; Start 09/24/21 at 05:00; Stop 09/25/21 at 04:59 Furosemide (Lasix) 40 mg DAILY IVP Last administered on 09/24/21at 09:57; Start 09/24/21 at 09:00 Ondansetron HCl (Zofran) 4 mg PRN Q6HRS PRN IVP NAUSEA/VOMITING; Start 09/24/21 at 08:15 Al Hydroxide/Mg Hydroxide (Mylanta Plus Xs) 30 ml PRN Q3HRS PRN PO HEARTBURN / GAS; Start 09/24/21 at 08:15 Calcium Carbonate/ Glycine (Tums) 500 mg PRN Q3HRS PRN PO UPSET STOMACH; Start 09/24/21 at 08:15 Zolpidem Tartrate (Ambien) 5 mg PRN QHS PRN PO INSOMNIA, MAY REPEAT IN 1HR; Start 09/24/21 at 08:15 Morphine Sulfate (Morphine Sulfate) 2 mg PRN Q1HR PRN IV PAIN; Start 09/24/21 at 08:15 Acetaminophen/ Hydrocodone Bitart (Lortab 5/325) 1 tab PRN Q4HRS PRN PO MILD PAIN 1-3; Start 09/24/21 at 08:15 Acetaminophen (Tylenol) 650 mg PRN Q6HRS PRN PO Headaches, Temp > 101.5F; Start 09/24/21 at 08:15 Magnesium Hydroxide (Milk Of Magnesia) 2,400 mg PRN Q12HR PRN PO CONSTIPATION; Start 09/24/21 at 08:15 Heparin Sodium (Porcine) (Heparin Sodium) 5,000 unit Q8HRS SQ ; Start 09/24/21 at 14:00 Hydralazine HCl (Apresoline Inj) 10 mg PRN Q4HRS PRN IVP ELEVATED BP, SEE COMMENTS; Start 09/24/21 at 09:45 Active Scripts Active Reported Carvedilol 25 Mg Tablet 25 Mg PO BIDWMEALS B Complex (Vitamin B Complex) 1 Each Tablet 1 Tab PO DAILY 30 Days Tramadol Hcl 50 Mg Tablet 50 Mg PO BID PRN Renal Caps Softgel (Folic Acid/Vitamin B Comp W-C) 1 Mg Capsule 1 Cap PO DAILY 30 Days Omeprazole 20 Mg Capsule.dr 1 Cap PO DAILY Melatonin 3 Mg Tab.rapdis 1 Tab PO QHS 30 Days Meclizine Hcl 12.5 Mg Tablet 1 Tab PO BID Levetiracetam 500 Mg Tab.er.24h 500 Mg PO DAILY Furosemide 40 Mg Tablet 1 Tab PO DAILY Fish Oil 1,000 mg Softgel ([place]-3/Dha/Epa/Fish Oil) 1,000 Mg Capsule 1,000 Mg PO BID Vitamin D2 (Ergocalciferol (Vitamin D2)) 1,250 Mcg Capsule 1,250 Mcg PO WEEKLY Docusate Sodium 100 Mg Capsule 1 Cap PO BID 7 Days Calcium Acetate 667 Mg Tablet 3 Tab PO TID 30 Days Atorvastatin Calcium 80 Mg Tablet 80 Mg PO QHS Levetiracetam 500 Mg Tablet 63 Mg PO QHS Pravastatin Sodium 40 Mg Tablet 1 Tab PO QHS Zoloft (Sertraline Hcl) 100 Mg Tablet 1 Tab PO DAILY Tylenol (Acetaminophen) 325 Mg Tablet 650 Mg PO Q8HRS PRN Gabapentin (Gabapentin) 400 Mg Capsule 400 Mg PO BID Vitamin D2 (Ergocalciferol (Vitamin D2)) 50,000 Unit Capsule 1 Cap PO WEEKLY Ranitidine Hcl 150 Mg Tablet 150 Mg PO DAILY Lisinopril 2.5 Mg Tablet 1 Tab PO DAILY Tramadol Hcl 50 Mg Tablet 100 Mg PO BID PRN Allergies Allergies: Coded Allergies: No Known Drug Allergies (Unverified , 08/16/17) ROS General: YES: Fatigue, Malaise PSYCHOLOGICAL ROS: YES: Anxiety, Depression Eyes: Yes Decreased vision HEENT: YES: Bob ALLERGY AND IMMUNOLOGY: YES: Seasonal Allergies Respiratory: YES: Cough, Orthopnea, Shortness of breath Cardiovascular: yes Edema Gastrointestinal: Yes Constipation Genitourinary: YES Frequency Musculoskeletal: Yes Muscular Weakness Neurological: Yes Weakness Skin: Yes Dry Skin Physical Exam General: Alert, Cooperative, mild distress HEENT: Atraumatic, PERRLA Lungs: Other (BASILAR RALES) Heart: Regular rate Abdomen: Normal bowel sounds Extremities: No clubbing Skin: No breakdown Neuro: Normal speech Psych/Mental Status: Mental status NL, Mood NL MUSCULOSKELETAL: No joint tenderness, No deformity, No swelling Vitals VITALS Vital Signs Date Time Temp Pulse Resp B/P (MAP) Pulse Ox O2 Delivery O2 Flow Rate FiO2 09/24/21 07:49 92 208/99 (135) 96 Room Air 09/24/21 05:55 20 09/24/21 01:30 98.2 98.2 Labs Labs Laboratory Tests Test 09/24/21 01:35 09/24/21 05:00 09/24/21 05:15 09/24/21 08:52 White Blood Count 8.3 x10^3/uL (4.0-11.0) Red Blood Count 2.85 x10^6/uL (4.30-5.70) Hemoglobin 9.8 g/dL (13.0-17.5) Hematocrit 27.9 % (39.0-53.0) Mean Corpuscular Volume 98 fL (79-100) Mean Corpuscular Hemoglobin 34 pg (25-35) Mean Corpuscular Hemoglobin Concent 35 g/dL (31-37) Red Cell Distribution Width 14.4 % (11.5-14.5) Platelet Count 131 x10^3/uL (140-400) Neutrophils (%) (Auto) 71 % (31-73) Lymphocytes (%) (Auto) 18 % (24-48) Monocytes (%) (Auto) 6 % (0-9) Eosinophils (%) (Auto) 4 % (0-3) Basophils (%) (Auto) 1 % (0-3) Neutrophils # (Auto) 5.8 x10^3/uL (1.8-7.7) Lymphocytes # (Auto) 1.5 x10^3/uL (1.0-4.8) Monocytes # (Auto) 0.5 x10^3/uL (0.0-1.1) Eosinophils # (Auto) 0.3 x10^3/uL (0.0-0.7) Basophils # (Auto) 0.1 x10^3/uL (0.0-0.2) Sodium Level 147 mmol/L (136-145) Potassium Level 5.1 mmol/L (3.5-5.1) Chloride Level 112 mmol/L (98-107) Carbon Dioxide Level 14 mmol/L (21-32) Anion Gap 21 (6-14) Blood Urea Nitrogen 91 mg/dL (8-26) Creatinine 10.3 mg/dL (0.7-1.3) Estimated GFR (Cockcroft-Gault) 5.1 BUN/Creatinine Ratio 9 (6-20) Glucose Level 157 mg/dL (70-99) Lactic Acid Level 0.5 mmol/L (0.4-2.0) Calcium Level 7.4 mg/dL (8.5-10.1) Total Bilirubin 0.3 mg/dL (0.2-1.0) Aspartate Amino Transf (AST/SGOT) 17 U/L (15-37) Alanine Aminotransferase (ALT/SGPT) 23 U/L (16-63) Alkaline Phosphatase 59 U/L (46-116) Troponin I High Sensitivity 53 ng/L (4-75) GI-Eif-Q-Type Natriuretic Peptide > 97617 pg/mL (0-124) Total Protein 6.6 g/dL (6.4-8.2) Albumin 3.2 g/dL (3.4-5.0) Albumin/Globulin Ratio 0.9 (1.0-1.7) Triglycerides Level 124 mg/dL (0-150) Cholesterol Level 121 mg/dL (0-200) LDL Cholesterol, Calculated 65 mg/dL (0-100) VLDL Cholesterol, Calculated 25 mg/dL (0-40) Non-HDL Cholesterol Calculated 90 mg/dL (0-129) HDL Cholesterol 31 mg/dL (40-60) Cholesterol/HDL Ratio 3.9 Acetone Level Neg (NEG) Urine Collection Type Unknown Urine Color (Auto) Light yellow Urine Turbidity Clear Urine pH (Auto) 6.0 (<5.0-8.0) Urine Specific [place] 1.016 (1.000-1.030) Urine Protein (Auto) 300 mg/dL (Negative) Urine Glucose (Auto)(UA) 200 mg/dL (Negative) Urine Ketones (Auto) Negative mg/dL (Negative) Urine Blood (Auto) Small (Negative) Urine Nitrite Negative (Negative) Urine Bilirubin (Auto) Negative (Negative) Urine Urobilinogen (Auto) Normal mg/dL (Normal) Urine Leukocyte Esterase (Auto) Negative (Negative) Urine RBC Occ /HPF (0-2) Urine WBC 1-4 /HPF (0-4) Urine Squamous Epithelial Cells Occ /LPF Urine Bacteria 0 /HPF (0-FEW) Urine Hyaline Casts Occasional /HPF Urine Mucus Slight /LPF Urine Sperm Present /HPF O2 Saturation 92 % (92-99) Arterial Blood pH 7.29 (7.35-7.45) Arterial Blood pCO2 at Patient Temp 25 mmHg (35-46) Arterial Blood pO2 at Patient Temp 72 mmHg (65-108) Arterial Blood HCO3 12 mmol/L (21-28) Arterial Blood Base Excess -14 mmol/L (-3-3) FiO2 21 Glucose (Fingerstick) 130 mg/dL (70-99) Test 09/24/21 09:30 Sodium Level 146 mmol/L (136-145) Potassium Level 5.4 mmol/L (3.5-5.1) Chloride Level 113 mmol/L (98-107) Carbon Dioxide Level 17 mmol/L (21-32) Anion Gap 16 (6-14) Blood Urea Nitrogen 88 mg/dL (8-26) Creatinine 10.2 mg/dL (0.7-1.3) Estimated GFR (Cockcroft-Gault) 5.2 Glucose Level 131 mg/dL (70-99) Calcium Level 7.7 mg/dL (8.5-10.1) Laboratory Tests Test 09/24/21 01:35 09/24/21 05:00 09/24/21 05:15 09/24/21 08:52 White Blood Count 8.3 x10^3/uL (4.0-11.0) Red Blood Count 2.85 x10^6/uL (4.30-5.70) Hemoglobin 9.8 g/dL (13.0-17.5) Hematocrit 27.9 % (39.0-53.0) Mean Corpuscular Volume 98 fL (79-100) Mean Corpuscular Hemoglobin 34 pg (25-35) Mean Corpuscular Hemoglobin Concent 35 g/dL (31-37) Red Cell Distribution Width 14.4 % (11.5-14.5) Platelet Count 131 x10^3/uL (140-400) Neutrophils (%) (Auto) 71 % (31-73) Lymphocytes (%) (Auto) 18 % (24-48) Monocytes (%) (Auto) 6 % (0-9) Eosinophils (%) (Auto) 4 % (0-3) Basophils (%) (Auto) 1 % (0-3) Neutrophils # (Auto) 5.8 x10^3/uL (1.8-7.7) Lymphocytes # (Auto) 1.5 x10^3/uL (1.0-4.8) Monocytes # (Auto) 0.5 x10^3/uL (0.0-1.1) Eosinophils # (Auto) 0.3 x10^3/uL (0.0-0.7) Basophils # (Auto) 0.1 x10^3/uL (0.0-0.2) Sodium Level 147 mmol/L (136-145) Potassium Level 5.1 mmol/L (3.5-5.1) Chloride Level 112 mmol/L (98-107) Carbon Dioxide Level 14 mmol/L (21-32) Anion Gap 21 (6-14) Blood Urea Nitrogen 91 mg/dL (8-26) Creatinine 10.3 mg/dL (0.7-1.3) Estimated GFR (Cockcroft-Gault) 5.1 BUN/Creatinine Ratio 9 (6-20) Glucose Level 157 mg/dL (70-99) Lactic Acid Level 0.5 mmol/L (0.4-2.0) Calcium Level 7.4 mg/dL (8.5-10.1) Total Bilirubin 0.3 mg/dL (0.2-1.0) Aspartate Amino Transf (AST/SGOT) 17 U/L (15-37) Alanine Aminotransferase (ALT/SGPT) 23 U/L (16-63) Alkaline Phosphatase 59 U/L (46-116) Troponin I High Sensitivity 53 ng/L (4-75) JR-Ofd-L-Type Natriuretic Peptide > 34079 pg/mL (0-124) Total Protein 6.6 g/dL (6.4-8.2) Albumin 3.2 g/dL (3.4-5.0) Albumin/Globulin Ratio 0.9 (1.0-1.7) Triglycerides Level 124 mg/dL (0-150) Cholesterol Level 121 mg/dL (0-200) LDL Cholesterol, Calculated 65 mg/dL (0-100) VLDL Cholesterol, Calculated 25 mg/dL (0-40) Non-HDL Cholesterol Calculated 90 mg/dL (0-129) HDL Cholesterol 31 mg/dL (40-60) Cholesterol/HDL Ratio 3.9 Acetone Level Neg (NEG) Urine Collection Type Unknown Urine Color (Auto) Light yellow Urine Turbidity Clear Urine pH (Auto) 6.0 (<5.0-8.0) Urine Specific [place] 1.016 (1.000-1.030) Urine Protein (Auto) 300 mg/dL (Negative) Urine Glucose (Auto)(UA) 200 mg/dL (Negative) Urine Ketones (Auto) Negative mg/dL (Negative) Urine Blood (Auto) Small (Negative) Urine Nitrite Negative (Negative) Urine Bilirubin (Auto) Negative (Negative) Urine Urobilinogen (Auto) Normal mg/dL (Normal) Urine Leukocyte Esterase (Auto) Negative (Negative) Urine RBC Occ /HPF (0-2) Urine WBC 1-4 /HPF (0-4) Urine Squamous Epithelial Cells Occ /LPF Urine Bacteria 0 /HPF (0-FEW) Urine Hyaline Casts Occasional /HPF Urine Mucus Slight /LPF Urine Sperm Present /HPF O2 Saturation 92 % (92-99) Arterial Blood pH 7.29 (7.35-7.45) Arterial Blood pCO2 at Patient Temp 25 mmHg (35-46) Arterial Blood pO2 at Patient Temp 72 mmHg (65-108) Arterial Blood HCO3 12 mmol/L (21-28) Arterial Blood Base Excess -14 mmol/L (-3-3) FiO2 21 Glucose (Fingerstick) 130 mg/dL (70-99) Test 09/24/21 09:30 Sodium Level 146 mmol/L (136-145) Potassium Level 5.4 mmol/L (3.5-5.1) Chloride Level 113 mmol/L (98-107) Carbon Dioxide Level 17 mmol/L (21-32) Anion Gap 16 (6-14) Blood Urea Nitrogen 88 mg/dL (8-26) Creatinine 10.2 mg/dL (0.7-1.3) Estimated GFR (Cockcroft-Gault) 5.2 Glucose Level 131 mg/dL (70-99) Calcium Level 7.7 mg/dL (8.5-10.1) Images Images PATIENT: LILLIAN VILLATORO ACCOUNT: [id number] : 1955 LOCATION: ER AGE: 66 SEX: M EXAM STATUS: PRE ER ORD. PHYSICIAN: ARUN GHOTRA MD REASON: SOB, CHF? PROCEDURE: CHEST PA & LATERAL Chest radiograph 09/24/2021 1:13 AM INDICATION: Shortness of breath, CHF COMPARISON: None available TECHNIQUE: Frontal and lateral views of the chest are provided. FINDINGS: The cardiomediastinal silhouette is within normal limits. Median sternotomy changes are present. Left chest wall cardiac device is identified with leads projecting over the right atrium and right ventricle. There are no pleural effusions. There is no pulmonary vascular congestion. There is no pneumothorax. The lungs are clear. COPD changes are present. No significant osseous abnormality is identified. IMPRESSION: COPD changes without acute cardiopulmonary process. Electronically signed by: Katheryn Head MD (09/24/2021 1:29 AM) [facility] Assessment/Plan Assessment/Plan IMP ESRD ANEMIA ACUTE RESP FAILURE WITH HYPOXIA ACUTE CHF VOLUME OVERLOAD ANEMIA ACIDOSIS DM II HTN PLAN PT WILL NOT DO DIALYSIS DESPITE EDUCATION WILL TRY TO DIURESE AND SEND HOME WHEN BREATHING IS BETTER ALSO START NAHCO3 D/W ATTENDING STOP IVF'S ECHO PENDING MATHEW ALDANA MD September 24, 2021 11:44
--- NOTE | 2021-09-24 13:32 | PDOC2 ---
CARDIAC CONSULT DATE OF CONSULT Date of Consult DATE: 09/24/21 TIME: 13:21 REASON FOR CONSULT Reason for Consult: CHF exac REFERRING PHYSICIAN Referring Physician: Tl SOURCE Source: Chart review, Patient HISTORY OF PRESENT ILLNESS HISTORY OF PRESENT ILLNESS This is a 66 yo male admitted for complains of shortness of breath. This has been increasing and upon admission he was noted with acute CHF and severe SIMBA. and his BP was very high. Reports no chest pain, nausea vomiting or diarrhea. Positive for PND and orthopnea and presently tachypneic. He has had extensive cardiac workup and renal workup at the [place]. He had a CABG about 3 yrs ago and also had an AICD. He was on dialysis before and last time was 3 months ago. He was being worked up for renal transplant last yr and he was told that one day that he does not meet the criteria. He has been very upset about it and eventually stopping dialysis and hated the [facility] facility and wanting to reestablish to another facility for renal transplant consideration. He does not want to go norma to the [place]. He gets really upset when he is told he needs dialysis and only would concede haviing dialysis if he gets promised to be in the transplant list. PAST MEDICAL HISTORY Cardiovascular: CAD, CHF, HTN, Hyperlipidemia, Other (Cardiomyopathy) Pulmonary: COPD (?) CENTRAL NERVOUS SYSTEM: CVA GI: Constipation, GERD Heme/Onc: Anemia NOS Hepatobiliary: No pertinent hx Psych: Anxiety Musculoskeletal: Osteoarthritis Rheumatologic: No pertinent hx Infectious disease: No pertinent hx ENT: No pertinent hx Renal/: Chronic renal failure Endocrine: Diabetes (2), Hyperparathyroidism Dermatology: No pertinent hx PAST SURGICAL HISTORY Past Surgical History: Pacemaker (AICD), Appendectomy, CABG, Other (RUE dialysis fistula) FAMILY HISTORY Family History: Coronary Artery Disease, Diabetes SOCIAL HISTORY Smoke: Quit ALCOHOL: occassional Drugs: None Lives: Friends CURRENT MEDICATIONS CURRENT MEDICATIONS Current Medications Medications (Trade) Dose Ordered Sig/René Route PRN Reason Start Time Stop Time Status Last Admin Dose Admin Furosemide (Lasix) 60 mg 1X ONCE IVP 09/24/21 01:30 09/24/21 01:31 DC 09/24/21 02:18 Albuterol/ Ipratropium (Duoneb) 6 ml 1X ONCE NEB 09/24/21 02:30 09/24/21 02:31 DC 09/24/21 03:09 Lorazepam (Ativan Inj) 2 mg 1X ONCE IVP 09/24/21 04:00 09/24/21 04:01 DC 09/24/21 04:03 Sodium Bicarbonate 150 meq/Sterile Water 1,150 ml @ 125 mls/hr Q9H12M IV 09/24/21 05:00 09/24/21 11:46 DC 09/24/21 05:28 Furosemide (Lasix) 40 mg DAILY IVP 09/24/21 09:00 09/24/21 11:46 DC 09/24/21 09:57 Hydralazine HCl (Apresoline Inj) 10 mg PRN Q4HRS PRN IVP ELEVATED BP, SEE COMMENTS 09/24/21 09:45 09/24/21 11:44 ALLERGIES ALLERGIES: Coded Allergies: No Known Drug Allergies (Unverified , 08/16/17) ROS Review of System 14 point ROS evaluated with pertinent positives noted per HPI PHYSICAL EXAM General: Alert, Oriented X3, Cooperative, moderate distress HEENT: Atraumatic, Mucous membr. moist/pink Lungs: Other (diminished throughout, tachypenic) Abdomen: Soft, No tenderness, Other (truncal obesity) Extremities: No cyanosis, No edema Skin: No breakdown, No significant lesion Neuro: Normal speech, Sensation intact Psych/Mental Status: Mental status NL, Other (anxious) MUSCULOSKELETAL: Osteoarthritic changes both hands VITALS/I&O VITALS/I&O: Vital Signs Date Time Temp Pulse Resp B/P (MAP) Pulse Ox O2 Delivery O2 Flow Rate FiO2 09/24/21 11:44 92 208/99 09/24/21 07:49 96 Room Air 09/24/21 05:55 20 09/24/21 01:30 98.2 98.2 I & O 09/23/21 09/23/21 09/24/21 15:00 23:00 07:00 Output Total 650 ml Balance -650 ml LABS Lab: Laboratory Tests Test 09/24/21 01:35 09/24/21 05:00 09/24/21 05:15 09/24/21 08:52 White Blood Count 8.3 x10^3/uL (4.0-11.0) Red Blood Count 2.85 x10^6/uL (4.30-5.70) L Hemoglobin 9.8 g/dL (13.0-17.5) L Hematocrit 27.9 % (39.0-53.0) L Mean Corpuscular Volume 98 fL (79-100) Mean Corpuscular Hemoglobin 34 pg (25-35) Mean Corpuscular Hemoglobin Concent 35 g/dL (31-37) Red Cell Distribution Width 14.4 % (11.5-14.5) Platelet Count 131 x10^3/uL (140-400) L Neutrophils (%) (Auto) 71 % (31-73) Lymphocytes (%) (Auto) 18 % (24-48) L Monocytes (%) (Auto) 6 % (0-9) Eosinophils (%) (Auto) 4 % (0-3) H Basophils (%) (Auto) 1 % (0-3) Neutrophils # (Auto) 5.8 x10^3/uL (1.8-7.7) Lymphocytes # (Auto) 1.5 x10^3/uL (1.0-4.8) Monocytes # (Auto) 0.5 x10^3/uL (0.0-1.1) Eosinophils # (Auto) 0.3 x10^3/uL (0.0-0.7) Basophils # (Auto) 0.1 x10^3/uL (0.0-0.2) Sodium Level 147 mmol/L (136-145) H Potassium Level 5.1 mmol/L (3.5-5.1) Chloride Level 112 mmol/L (98-107) H Carbon Dioxide Level 14 mmol/L (21-32) L Anion Gap 21 (6-14) H Blood Urea Nitrogen 91 mg/dL (8-26) H Creatinine 10.3 mg/dL (0.7-1.3) H Estimated GFR (Cockcroft-Gault) 5.1 BUN/Creatinine Ratio 9 (6-20) Glucose Level 157 mg/dL (70-99) H Lactic Acid Level 0.5 mmol/L (0.4-2.0) Calcium Level 7.4 mg/dL (8.5-10.1) L Total Bilirubin 0.3 mg/dL (0.2-1.0) Aspartate Amino Transferase (AST) 17 U/L (15-37) Alanine Aminotransferase (ALT) 23 U/L (16-63) Alkaline Phosphatase 59 U/L (46-116) Troponin I High Sensitivity 53 ng/L (4-75) YF-Ddt-M-Type Natriuretic Peptide > 24605 pg/mL (0-124) H Total Protein 6.6 g/dL (6.4-8.2) Albumin 3.2 g/dL (3.4-5.0) L Albumin/Globulin Ratio 0.9 (1.0-1.7) L Triglycerides Level 124 mg/dL (0-150) Cholesterol Level 121 mg/dL (0-200) LDL Cholesterol, Calculated 65 mg/dL (0-100) VLDL Cholesterol, Calculated 25 mg/dL (0-40) Non-HDL Cholesterol Calculated 90 mg/dL (0-129) HDL Cholesterol 31 mg/dL (40-60) L Cholesterol/HDL Ratio 3.9 Acetone Level Neg (NEG) Urine Collection Type Unknown Urine Color (Auto) Light yellow Urine Turbidity Clear Urine pH (Auto) 6.0 (<5.0-8.0) Urine Specific [place] 1.016 (1.000-1.030) Urine Protein (Auto) 300 mg/dL (Negative) Urine Glucose (Auto)(UA) 200 mg/dL (Negative) Urine Ketones (Auto) Negative mg/dL (Negative) Urine Blood (Auto) Small (Negative) Urine Nitrite Negative (Negative) Urine Bilirubin (Auto) Negative (Negative) Urine Urobilinogen (Auto) Normal mg/dL (Normal) Urine Leukocyte Esterase (Auto) Negative (Negative) Urine RBC Occ /HPF (0-2) Urine WBC 1-4 /HPF (0-4) Urine Squamous Epithelial Cells Occ /LPF Urine Bacteria 0 /HPF (0-FEW) Urine Hyaline Casts Occasional /HPF Urine Mucus Slight /LPF Urine Sperm Present /HPF O2 Saturation 92 % (92-99) Arterial Blood pH 7.29 (7.35-7.45) L Arterial Blood pCO2 at Patient Temp 25 mmHg (35-46) L Arterial Blood pO2 at Patient Temp 72 mmHg (65-108) Arterial Blood HCO3 12 mmol/L (21-28) L Arterial Blood Base Excess -14 mmol/L (-3-3) L FiO2 21 Glucose (Fingerstick) 130 mg/dL (70-99) H Test 09/24/21 09:30 09/24/21 11:39 Sodium Level 146 mmol/L (136-145) H Potassium Level 5.4 mmol/L (3.5-5.1) H Chloride Level 113 mmol/L (98-107) H Carbon Dioxide Level 17 mmol/L (21-32) L Anion Gap 16 (6-14) H Blood Urea Nitrogen 88 mg/dL (8-26) H Creatinine 10.2 mg/dL (0.7-1.3) H Estimated GFR (Cockcroft-Gault) 5.2 Glucose Level 131 mg/dL (70-99) H Calcium Level 7.7 mg/dL (8.5-10.1) L Glucose (Fingerstick) 133 mg/dL (70-99) H Laboratory Tests 09/24/21 01:35 Laboratory Tests 09/24/21 01:35 09/24/21 09:30 ASSESSMENT/PLAN ASSESSMENT/PLAN 1. Acute on chronic CHF with possible systolic dysfunction 2. ESRD: last HD 3 months ago, has been refusing dialysis 3. Suspect COPD with past tobacco abuse 4. Malignant Hypertension 5. CAD: past CABG reported 3 yrs ago 6. Cardiomyopathy 7. AICD in situ: reported [employer] [facility] 8. DM2: per PCP 9. HLP 10. Hx of CVA 11. Hx of seizure: noted with Tomas on regimen 12. Mild hyperkalemia Recommendations 1. Labetolol PRN 2. Start on norvasc. and hydralazine/imdur. Restart coreg after rechecking K 3. ASA and resume home statin 4. TTE. Interrogate device and obtain [facility] 5. Has been refusing dialysis and bipap as well. He does not want dialysis unless he is placed on a transplant list. Lasix therapy, will defer further to nephrology NEREIDA [employer] COORDINATOR September 24, 2021 13:32
[2021-09-24] MEDS ORDERED: LABETALOL 20 MG/4 ML DISP.SYRIN. IVP ONE (14:00)
[2021-09-24] MEDS ORDERED: LABETALOL 20 MG/4 ML DISP.SYRIN. IVP PRN (14:00)
[2021-09-24 15:00] VITALS: BP 218/98
[2021-09-24] MEDS: methylPREDNISolone SOD SUCC PF 40 MG/ML VIAL. IV SCH (15:12)
[2021-09-24 16:10] LABS: CALCIUM 7.6 mg/dL (8.5-10.1); CREATININE 10.2 mg/dL (0.7-1.3); GFR 5.2; POTASSIUM 4.8 mmol/L (3.5-5.1)
--- NOTE | 2021-09-24 16:47 | CARD ---
MR#: [id number] Date of Study: 09/24/2021 Ordering Physician: BHARGAVI BUI, Referring Physician: BHARGAVI BUI, Tech: Aileen Peña [facility] APPROVED REPORT EXAM: Two-dimensional and M-mode echocardiogram with Doppler and color Doppler. Other Information Quality : Technically LimitedHR: 91bpm Rhythm : NSR INDICATION COPD Dyspnea Cardiac Disease: CAD RISK FACTORS Hypertension Obesity Hyperlipidemia Smoking 2D DIMENSIONS IVSd1.7 (0.7-1.1cm)LVDd6.5 (3.9-5.9cm) PWd1.3 (0.7-1.1cm)IVSs2.1 (0.8-1.2cm) LVDs5.1 (2.5-4.0cm)FS (%) 21.2 % PWs1.4 (0.8-1.2cm)SV90.9 ml LVEF(%)42.1 (>50%) Aortic Valve AoV Peak Selwyn.149.1cm/sAoV VTI26.1cm AO Peak GR.8.9mmHgLVOT Peak Selwyn.90.0cm/s LVOT VTI 17.66cmAO Mean GR.5mmHg Mitral Valve MV E Vllbesgm738.0cm/sMV DECEL [id number] MV A Eqhemgdt53.7cm/sMV [id number] E/A Ratio1.8MVA (PHT)6.10cm2 TDI E/Lateral E'16.8E/Medial E'22.5 Pulmonary Valve PV Peak Knhreybj774.0cm/sPV Peak Grad.5mmHg LEFT VENTRICLE The Left Ventricle is moderately dilated. There is mild to moderate concentric left ventricular hyper trophy. The left ventricle systolic function is severely impaired. Ejection fraction is estimated at 20 to 25%. There is global hypokinesis of the left ventricle. Tissue Doppler imaging reveals moderate left ventricular diastolic dysfunction. RIGHT VENTRICLE The right ventricle is mildly dilated. There is normal right ventricular wall thickness. Systolic fun ction is borderline reduced. ATRIA The left atrium is mildly dilated. The right atrium is mildly dilated. AORTIC VALVE The aortic valve is normal in structure and function. Doppler and Color Flow revealed no significant aortic regurgitation. There is no significant aortic valvular stenosis. MITRAL VALVE The mitral valve is normal in structure and function. There is no evidence of mitral valve prolapse. There is no mitral valve stenosis. Doppler and Color-flow revealed mild mitral regurgitation. TRICUSPID VALVE The tricuspid valve is normal in structure and function. Doppler and Color Flow revealed no tricuspid valve regurgitation noted. There is no tricuspid valve stenosis. PULMONIC VALVE The pulmonary valve is normal in structure and function. Doppler and Color Flow revealed no pulmonic valvular regurgitation. GREAT VESSELS The aortic root is normal in size. The ascending aorta is normal in size. The IVC is dilated and damián apses <50% with inspiration. PERICARDIAL EFFUSION There is no evidence of significant pericardial effusion. Critical Notification Critical Value: No <Conclusion> The left ventricle systolic function is severely impaired. Ejection fraction is estimated at 20 to 25%. Mild mitral regurgitation. There is no evidence of significant pericardial effusion. Signed by : Luis Antonio Arreola, Electronically Approved : 09/24/2021 16:46:27
[2021-09-24] MEDS: FUROSEMIDE 40 MG/4 ML VIAL. IVP SCH (17:52)
[2021-09-24] MEDS: HEPARIN for SUB-Q USE 5,000 UNIT/ML VIAL. SQ SCH ×2 (17:52→22:14)
[2021-09-24] MEDS: SODIUM BICARBONATE 650 MG TABLET. PO SCH ×2 (17:54→22:17)
[2021-09-24 19:36] VITALS: BP 210/97
[2021-09-24] MEDS: ACETAMINOPHEN 325 MG TABLET. PO PRN (20:00)
[2021-09-24] MEDS ORDERED: LISINOPRIL 5 MG TABLET. PO ONE (21:30)
[2021-09-24] MEDS: CALCIUM CARBONATE 500 MG TAB.CHEW PO PRN (22:16)
[2021-09-24] MEDS: ATORVASTATIN CALCIUM 40 MG TABLET. PO SCH (22:20)
[2021-09-24 22:21] VITALS: BP 200/100
[2021-09-24 22:26] VITALS: BP 188/88
--- NOTE | 2021-09-24 23:06 | CONS ---
DATE OF CONSULTATION: 09/24/2021 ATTENDING PHYSICIAN: Dr. Boothe. REASON FOR CONSULTATION: The patient is seen in Pulmonary consultation at the request of Dr. Boothe for shortness of air, abnormal arterial blood gas revealing a pH of 7.29, PaCO2 of 25, pO2 of 72. HISTORY OF PRESENT ILLNESS: The patient is a 66-year-old with a history of coronary artery disease, status post coronary artery bypass grafting approximately 2-3 years ago. This was performed at [facility]. He presented with a 2-3 day history of increasing shortness of breath. Upon questioning, he has been short of breath for 2-3 weeks. He normally does not wear oxygen at home. He quit tobacco 2-1/2 years ago. He states that he has not had any acute exacerbations of COPD, presented with increasing shortness of breath. I reviewed his labs. His white count was normal, hemoglobin and hematocrit were noted. Arterial blood gas revealed a metabolic acidosis. He does have renal insufficiency with a BUN of 88 and creatinine of 10.2. Acetone level was negative. I reviewed his chest x-ray. There are no x-rays for comparison, but basically has some chronic changes. There is cardiomegaly. There is what looks like a loculated effusion on the right side and hyperinflation. The patient denies fever, chills, or night sweats. PAST MEDICAL HISTORY: Coronary artery disease with previous coronary artery bypass grafting, chronic heart failure, end-stage renal disease, diabetes, hypertension. Regarding his end-stage renal disease, the patient has refused dialysis in the past. PAST SURGICAL HISTORY: Status post pacemaker implantation, coronary artery bypass grafting. FAMILY HISTORY: Coronary artery disease. SOCIAL HISTORY: He quit tobacco 2-1/2 years ago. ALLERGIES: No known drug allergies. CURRENT MEDICATIONS: List was reviewed. PHYSICAL EXAMINATION: GENERAL: The patient appears to be older than stated age, currently on 2 liters of oxygen supplementation. HEENT: Eyes: The sclerae were nonicteric. NECK: Jugular venous distention could not be assessed secondary to body habitus. CHEST: Full expansion. LUNGS: Rales throughout both lung oliver. CARDIOVASCULAR: Regular rate and rhythm with S1, S2, no S3. ABDOMEN: Soft, obese. EXTREMITIES: No clubbing, cyanosis. Minimal edema. NEUROLOGIC: The patient was awake, alert, following commands. A detailed neuro exam was not performed. LABORATORY DATA: As indicated above. White count was noted. ABG noted. Chest x-ray as indicated above. IMPRESSION: 1. Respiratory distress secondary to acute exacerbation of chronic obstructive pulmonary disease and metabolic acidosis. 2. Severe metabolic acidosis related to end-stage renal disease, the patient refuses dialysis. 3. Clinical symptoms and signs of obstructive sleep apnea. 4. Suspect secondary pulmonary hypertension. 5. Abnormal x-ray revealing some chronic changes compatible with chronic pleural effusion and cardiomegaly. 6. Acute on chronic diastolic heart failure. 7. Hypertension. 8. Morbid obesity. 9. Chronic obstructive pulmonary disease, unknown FEV1. 10. Tobacco dependence, in remission. DISCUSSION: I had a candid discussion with the patient. I recommended that he utilize BiPAP. He declined. I have written an order for BiPAP with low pressures. We will attempt a BiPAP this evening. I promised the patient that if he is unable to wear the BiPAP, we will discontinue it. He does require an outpatient polysomnogram. With that being said, if he does not agree to hemodialysis, he surely will do poorly. PLAN: 1. Initiate treatment for acute exacerbation of chronic obstructive pulmonary disease. 2. Try BiPAP. 3. Follow Nephrology input. 4. Try to diurese per Nephrology. DAOKTA/JERMAINE DR: Siva TID: [id number]
[2021-09-25] MEDS: CALCIUM CARBONATE 500 MG TAB.CHEW PO PRN (01:49)
[2021-09-25 03:21] VITALS: BP 137/101
[2021-09-25] MEDS: HEPARIN for SUB-Q USE 5,000 UNIT/ML VIAL. SQ SCH ×3 (05:52→20:45)
--- NOTE | 2021-09-25 06:51 | NUR ---
End of shift note pt alert and oriented. nsr to sinus tach 90-low 100. BP 200s systolic at beginning of shift. Last BP reading 140s systolic. patient repositions self in bed frequently. at beginning of shift, Dr. Cody paged and alerted of patient blood pressure in 200s that was not responsive to medications given during the day. Patient stated those medications did not work for him and he takes lisinopril at home. Orders placed and initiated. Throughout the shift, patient oxygen saturations decreasing and then coming back up. Education provided to patient about wearing oxygen. For a small amount of time, patient would wear oxygen and no decreases in o2 saturations noted. however, about midnight patient declined wearing oxygen stating the RN that he would "tie it in a knot and throw it out the window before wearing it anymore". pt remained on room air for the remainder of the shift. Patient stated to RN multiple times throughout shift to let him sleep because he hasn't slept in days. RN apologized for the interruption but needed to make sure patient was safe. At around 0200 this morning, patient woke up and asked RN for tums for heartburn. At this time, patient began vomiting. patient stated to RN he felt like there was something stuck in the back of his throat. tums, zofran given. water given. no facial swelling noted at this time. patient returned to sleep. At 0550 this am, patient again awake and vomiting. Upon assessing the patient, significant facial swelling noted around patient eyes. patient tongue appeared swollen. patient stated to RN he felt like he was chocking. patient speech slightly garbled. patient o2 saturations in the 90s while awake, however, decrease while sleeping. Dr. Cody paged at 0600, 0615, and a returned call given at 0630. Provider alerted of findings. RN expressed concern for angioedema related to lisinopril administration. orders given and initiated for Solumedrol and Benadryl. patient currently resting in bed and asking to order breakfast. provider at bedside to assess patient at 0715. Addendum: 09/25/21 at 2831 by KERRI AVILES RN RN Patient stated to this RN that he would be okay with a temporary intubation if needed due to swelling. Also stated to RN Joana Mallory was his decision maker [phone] and has DPOA paperwork. This RN cannot verify the paperwork at this time.
[2021-09-25 07:00] VITALS: BP 143/69
[2021-09-25] MEDS ORDERED: methylPREDNISolone SOD SUCC PF 125 MG/2 ML VIAL. IV ONE (07:00)
[2021-09-25] MEDS ORDERED: diphenhydrAMINE 50 MG/ML VIAL IVP ONE (07:00)
[2021-09-25 07:16] LABS: BASO % 0 % (0-3); EOS % 0 % (0-3); HEMATOCRIT 28.2 % (39.0-53.0); HEMOGLOBIN 9.6 g/dL (13.0-17.5); LYMPH % 15 % (24-48); MEAN CORPUSCULAR HEMOGLOBIN 33 pg (25-35); MEAN CORPUSCULAR HGB CONC 34 g/dL (31-37); MEAN CORPUSCULAR VOLUME 98 fL (79-100); MONO # 0.2 x10^3/uL (0.0-1.1); MONO % 3 % (0-9); NEUT # 5.5 x10^3/uL (1.8-7.7); NEUT % 81 % (31-73); PLATELET COUNT 134 x10^3/uL (140-400); RED BLOOD COUNT 2.88 x10^6/uL (4.30-5.70); RED CELL DISTRIBUTION WIDTH 14.7 % (11.5-14.5); WHITE BLOOD COUNT 6.7 x10^3/uL (4.0-11.0)
[2021-09-25 07:42] LABS: CREATININE 10.1 mg/dL (0.7-1.3); GFR 5.2; POTASSIUM 5.4 mmol/L (3.5-5.1)
[2021-09-25] MEDS: ASPIRIN ENTERIC COATED 81 MG TABLET.DR. PO SCH (08:00)
[2021-09-25] MEDS: SODIUM BICARBONATE 650 MG TABLET. PO SCH ×3 (08:26→20:44)
[2021-09-25] MEDS: ISOSORBIDE MONONITRATE ER 30 MG TAB.ER.24H PO SCH (08:26)
--- NOTE | 2021-09-25 08:42 | RAD ---
EXAMINATION: Chest radiograph. VIEWS: 1 COMPARISON: 09/24/2021 INDICATION:66 years, Male, increased white blood cell count. FINDINGS: Stable cardiomegaly. Left worst than right, perihilar and basilar airspace opacities, essentially unc hanged since prior exam. No pleural effusion or pneumothorax. No acute osseous process. Left chest wa ll pacemaker device remains unchanged. Median sternotomy wires. IMPRESSION: Left worst than right, perihilar and basilar airspace opacities, essentially unchanged since prior ex am. Differential consideration includes pulmonary edema versus multifocal pneumonia. Electronically signed by: Abdiel Ballesteros MD (09/25/2021 8:39 AM) [id number]
[2021-09-25] MEDS: methylPREDNISolone SOD SUCC PF 40 MG/ML VIAL. IV SCH ×2 (08:48→10:12)
[2021-09-25] MEDS: FUROSEMIDE 40 MG/4 ML VIAL. IVP SCH ×3 (08:48→14:00)
--- NOTE | 2021-09-25 09:25 | PDOC ---
PROGRESS NOTES Date of Service: DATE: 09/25/21 TIME: 09:25 Subjective Subjective No new complaints Objective Objective Vital Signs Date Time Temp Pulse Resp B/P (MAP) Pulse Ox O2 Delivery O2 Flow Rate FiO2 09/25/21 07:00 98.0 91 20 143/69 (93) 98 Room Air 98.0 Intake and Output 09/25/21 07:00 Intake Total 600 ml Output Total 500 ml Balance 100 ml Intake Oral 600 ml Output Urine Total 500 ml Physical Exam Abdomen: Soft, No tenderness, Other (truncal obesity) Heart: Regular rate Extremities: No cyanosis, No edema General: Alert, Oriented X3, Cooperative, moderate distress HEENT: Atraumatic, Mucous membr. moist/pink Lungs: Other (diminished throughout, tachypenic) MUSCULOSKELETAL: Osteoarthritic changes both hands Neuro: Normal speech, Sensation intact Psych/Mental Status: Mental status NL, Other (anxious) Skin: No breakdown, No significant lesion Assessment Assessment 1. Acute on chronic systolic heart failure 2. ESRD: last HD 3 months ago, has been refusing dialysis 3. Suspect COPD with past tobacco abuse 4. Malignant Hypertension 5. CAD: past CABG reported 3 yrs ago. Stable and chest pain-free 6. Cardiomyopathy 7. AICD in situ: reported [facility] [facility] 8. DM2: per PCP 9. HLP 10. Hx of CVA 11. Hx of seizure: noted with Anniera on regimen 12. Mild hyperkalemia Recommendations 1. Increase hydralazine dose for better blood pressure control 2. 2D echo showed LVEF 20 to 25% 3. Has been refusing dialysis and bipap as well. He does not want dialysis unless he is placed on a transplant list. Lasix therapy, will defer further to nephrology Plan Plan of Care Problems Medical Problems: (1) CHF exacerbation Status: Acute (2) COPD exacerbation Status: Acute (3) Metabolic acidosis Status: Acute (4) Orthopnea Status: Acute Comment Review of Relevant I have reviewed the following items basil (where applicable) has been applied. Labs Laboratory Tests Test 09/24/21 09:30 09/24/21 11:39 09/24/21 15:14 09/24/21 17:08 Sodium Level 146 mmol/L (136-145) 146 mmol/L (136-145) Potassium Level 5.4 mmol/L (3.5-5.1) 4.8 mmol/L (3.5-5.1) Chloride Level 113 mmol/L (98-107) 113 mmol/L (98-107) Carbon Dioxide Level 17 mmol/L (21-32) 14 mmol/L (21-32) Anion Gap 16 (6-14) 19 (6-14) Blood Urea Nitrogen 88 mg/dL (8-26) 91 mg/dL (8-26) Creatinine 10.2 mg/dL (0.7-1.3) 10.2 mg/dL (0.7-1.3) Estimated GFR (Cockcroft-Gault) 5.2 5.2 Glucose Level 131 mg/dL (70-99) 144 mg/dL (70-99) Calcium Level 7.7 mg/dL (8.5-10.1) 7.6 mg/dL (8.5-10.1) Glucose (Fingerstick) 133 mg/dL (70-99) 147 mg/dL (70-99) Test 09/24/21 20:39 09/25/21 06:05 09/25/21 06:50 09/25/21 07:14 Glucose (Fingerstick) 234 mg/dL (70-99) 149 mg/dL (70-99) White Blood Count 6.7 x10^3/uL (4.0-11.0) Red Blood Count 2.88 x10^6/uL (4.30-5.70) Hemoglobin 9.6 g/dL (13.0-17.5) Hematocrit 28.2 % (39.0-53.0) Mean Corpuscular Volume 98 fL (79-100) Mean Corpuscular Hemoglobin 33 pg (25-35) Mean Corpuscular Hemoglobin Concent 34 g/dL (31-37) Red Cell Distribution Width 14.7 % (11.5-14.5) Platelet Count 134 x10^3/uL (140-400) Neutrophils (%) (Auto) 81 % (31-73) Lymphocytes (%) (Auto) 15 % (24-48) Monocytes (%) (Auto) 3 % (0-9) Eosinophils (%) (Auto) 0 % (0-3) Basophils (%) (Auto) 0 % (0-3) Neutrophils # (Auto) 5.5 x10^3/uL (1.8-7.7) Lymphocytes # (Auto) 1.0 x10^3/uL (1.0-4.8) Monocytes # (Auto) 0.2 x10^3/uL (0.0-1.1) Eosinophils # (Auto) 0.0 x10^3/uL (0.0-0.7) Basophils # (Auto) 0.0 x10^3/uL (0.0-0.2) Sodium Level 143 mmol/L (136-145) Potassium Level 5.4 mmol/L (3.5-5.1) Chloride Level 109 mmol/L (98-107) Carbon Dioxide Level 15 mmol/L (21-32) Anion Gap 19 (6-14) Blood Urea Nitrogen 95 mg/dL (8-26) Creatinine 10.1 mg/dL (0.7-1.3) Estimated GFR (Cockcroft-Gault) 5.2 Glucose Level 166 mg/dL (70-99) Calcium Level 8.0 mg/dL (8.5-10.1) Medications Current Medications Amlodipine Besylate (Norvasc) 10 mg 1X ONCE PO Last administered on 09/24/21at 17:53; Start 09/24/21 at 14:45; Stop 09/24/21 at 14:52; Status DC Amlodipine Besylate (Norvasc) 10 mg DAILY PO ; Start 09/25/21 at 09:00 Aspirin (Ecotrin) 81 mg DAILYWBKFT PO ; Start 09/25/21 at 08:00 Atorvastatin Calcium (Lipitor) 40 mg QHS PO Last administered on 09/24/21at 22:20; Start 09/24/21 at 21:00 Diphenhydramine HCl (Benadryl) 25 mg 1X ONCE IVP Last administered on 09/25/21at 06:38; Start 09/25/21 at 07:00; Stop 09/25/21 at 07:01; Status DC Furosemide (Lasix) 40 mg BID92 IVP Last administered on 09/25/21at 08:48; Start 09/24/21 at 14:00 Heparin Sodium (Porcine) (Heparin Sodium) 5,000 unit Q8HRS SQ Last administered on 09/25/21at 05:52; Start 09/24/21 at 14:00 Hydralazine HCl (Apresoline Inj) 10 mg PRN Q4HRS PRN IVP ELEVATED BP, SEE COMMENTS Last administered on 09/24/21at 20:03; Start 09/24/21 at 09:45 Hydralazine HCl (Apresoline) 50 mg TID PO Last administered on 09/24/21at 22:17; Start 09/24/21 at 15:00 Isosorbide Mononitrate (Imdur) 30 mg DAILY PO ; Start 09/25/21 at 09:00 Labetalol HCl (Normodyne Iv Push) 20 mg 1X ONCE IVP Last administered on at 15:14; Start 09/24/21 at 14:00; Stop 09/24/21 at 14:01; Status DC Labetalol HCl (Normodyne Iv Push) 20 mg PRN Q2HR PRN IVP HYPERTENSION; Start 09/24/21 at 14:00 Lisinopril (Prinivil) 2.5 mg ONCE ONCE PO Last administered on 09/24/21at 22:18; Start 09/24/21 at 21:30; Stop 09/24/21 at 21:31; Status DC Methylprednisolone Sodium Succinate (SOLU-Medrol 40MG VIAL) 62.5 mg DAILY IV Last administered on 09/25/21at 08:48; Start 09/24/21 at 13:15 Methylprednisolone Sodium Succinate (SOLU-Medrol 125MG VIAL) 125 mg 1X ONCE IV Last administered on 09/25/21at 06:38; Start 09/25/21 at 07:00; Stop 09/25/21 at 07:01; Status DC Sodium Bicarbonate (Sodium Bicarbonate) 650 mg TID PO Last administered on 09/24/21at 22:17; Start 09/24/21 at 14:00 Vitals/I & O Vital Sign - Last 24 Hours 09/24/21 09/24/21 09/24/21 09/24/21 11:00 11:44 15:00 15:14 Temp 97.8 97.5 97.8 97.5 Pulse 62 92 89 92 Resp 18 22 B/P (MAP) 219/95 (136) 208/99 218/98 (138) 208/99 Pulse Ox 91 93 09/24/21 09/24/21 09/24/21 09/24/21 17:53 17:54 19:36 20:03 Temp 98.0 98.0 Pulse 92 92 94 95 Resp 21 B/P (MAP) 208/99 208/99 210/97 (134) 174/81 Pulse Ox 98 O2 Delivery Room Air 09/24/21 09/24/21 09/24/21 09/24/21 20:12 22:17 22:18 22:21 Temp 98.2 98.2 Pulse 97 95 92 Resp 20 B/P (MAP) 200/100 200/100 200/100 (133) Pulse Ox 98 O2 Delivery Room Air Room Air 09/24/21 09/25/21 09/25/21 22:26 03:21 07:00 Temp 97.6 98.0 97.6 98.0 Pulse 95 91 Resp 22 20 B/P (MAP) 188/88 (121) 137/101 (113) 143/69 (93) Pulse Ox 95 98 O2 Delivery Room Air Room Air Intake and Output 09/24/21 09/24/21 09/25/21 15:00 23:00 07:00 Intake Total 600 ml Output Total 300 ml 200 ml Balance -300 ml 400 ml DIPESH REECE MD September 25, 2021 09:25
--- NOTE | 2021-09-25 10:56 | PDOC ---
PULMONARY PROGRESS NOTES DATE: 09/25/21 TIME: 10:55 Subjective Patient with multiple complaints, not [facility] "Nobody told him that his kidneys were bad " Vitals Vital Signs Date Time Temp Pulse Resp B/P (MAP) Pulse Ox O2 Delivery O2 Flow Rate FiO2 09/25/21 07:00 98.0 91 20 143/69 (93) 98 Room Air 98.0 ROS: No Nausea, No Chest Pain, No Abdominal Pain, No Increase Cough General: Alert Lungs: Crackles Cardiovascular: S1, S2 Abdomen: Soft Neuro Exam: Alert Extremities: No Edema, Other (Edema) Skin: Warm Labs Laboratory Tests Test 09/24/21 01:35 09/24/21 05:00 09/24/21 05:15 09/24/21 08:52 White Blood Count 8.3 x10^3/uL (4.0-11.0) Red Blood Count 2.85 x10^6/uL (4.30-5.70) Hemoglobin 9.8 g/dL (13.0-17.5) Hematocrit 27.9 % (39.0-53.0) Mean Corpuscular Volume 98 fL (79-100) Mean Corpuscular Hemoglobin 34 pg (25-35) Mean Corpuscular Hemoglobin Concent 35 g/dL (31-37) Red Cell Distribution Width 14.4 % (11.5-14.5) Platelet Count 131 x10^3/uL (140-400) Neutrophils (%) (Auto) 71 % (31-73) Lymphocytes (%) (Auto) 18 % (24-48) Monocytes (%) (Auto) 6 % (0-9) Eosinophils (%) (Auto) 4 % (0-3) Basophils (%) (Auto) 1 % (0-3) Neutrophils # (Auto) 5.8 x10^3/uL (1.8-7.7) Lymphocytes # (Auto) 1.5 x10^3/uL (1.0-4.8) Monocytes # (Auto) 0.5 x10^3/uL (0.0-1.1) Eosinophils # (Auto) 0.3 x10^3/uL (0.0-0.7) Basophils # (Auto) 0.1 x10^3/uL (0.0-0.2) Sodium Level 147 mmol/L (136-145) Potassium Level 5.1 mmol/L (3.5-5.1) Chloride Level 112 mmol/L (98-107) Carbon Dioxide Level 14 mmol/L (21-32) Anion Gap 21 (6-14) Blood Urea Nitrogen 91 mg/dL (8-26) Creatinine 10.3 mg/dL (0.7-1.3) Estimated GFR (Cockcroft-Gault) 5.1 BUN/Creatinine Ratio 9 (6-20) Glucose Level 157 mg/dL (70-99) Hemoglobin A1c 6.0 % (4.8-5.6) Lactic Acid Level 0.5 mmol/L (0.4-2.0) Calcium Level 7.4 mg/dL (8.5-10.1) Total Bilirubin 0.3 mg/dL (0.2-1.0) Aspartate Amino Transf (AST/SGOT) 17 U/L (15-37) Alanine Aminotransferase (ALT/SGPT) 23 U/L (16-63) Alkaline Phosphatase 59 U/L (46-116) Troponin I High Sensitivity 53 ng/L (4-75) DZ-Opv-O-Type Natriuretic Peptide > 02794 pg/mL (0-124) Total Protein 6.6 g/dL (6.4-8.2) Albumin 3.2 g/dL (3.4-5.0) Albumin/Globulin Ratio 0.9 (1.0-1.7) Triglycerides Level 124 mg/dL (0-150) Cholesterol Level 121 mg/dL (0-200) LDL Cholesterol, Calculated 65 mg/dL (0-100) VLDL Cholesterol, Calculated 25 mg/dL (0-40) Non-HDL Cholesterol Calculated 90 mg/dL (0-129) HDL Cholesterol 31 mg/dL (40-60) Cholesterol/HDL Ratio 3.9 Acetone Level Neg (NEG) Urine Collection Type Unknown Urine Color (Auto) Light yellow Urine Turbidity Clear Urine pH (Auto) 6.0 (<5.0-8.0) Urine Specific [place] 1.016 (1.000-1.030) Urine Protein (Auto) 300 mg/dL (Negative) Urine Glucose (Auto)(UA) 200 mg/dL (Negative) Urine Ketones (Auto) Negative mg/dL (Negative) Urine Blood (Auto) Small (Negative) Urine Nitrite Negative (Negative) Urine Bilirubin (Auto) Negative (Negative) Urine Urobilinogen (Auto) Normal mg/dL (Normal) Urine Leukocyte Esterase (Auto) Negative (Negative) Urine RBC Occ /HPF (0-2) Urine WBC 1-4 /HPF (0-4) Urine Squamous Epithelial Cells Occ /LPF Urine Bacteria 0 /HPF (0-FEW) Urine Hyaline Casts Occasional /HPF Urine Mucus Slight /LPF Urine Sperm Present /HPF O2 Saturation 92 % (92-99) Arterial Blood pH 7.29 (7.35-7.45) Arterial Blood pCO2 at Patient Temp 25 mmHg (35-46) Arterial Blood pO2 at Patient Temp 72 mmHg (65-108) Arterial Blood HCO3 12 mmol/L (21-28) Arterial Blood Base Excess -14 mmol/L (-3-3) FiO2 21 Glucose (Fingerstick) 130 mg/dL (70-99) Test 09/24/21 09:30 09/24/21 11:39 09/24/21 15:14 09/24/21 17:08 Sodium Level 146 mmol/L (136-145) 146 mmol/L (136-145) Potassium Level 5.4 mmol/L (3.5-5.1) 4.8 mmol/L (3.5-5.1) Chloride Level 113 mmol/L (98-107) 113 mmol/L (98-107) Carbon Dioxide Level 17 mmol/L (21-32) 14 mmol/L (21-32) Anion Gap 16 (6-14) 19 (6-14) Blood Urea Nitrogen 88 mg/dL (8-26) 91 mg/dL (8-26) Creatinine 10.2 mg/dL (0.7-1.3) 10.2 mg/dL (0.7-1.3) Estimated GFR (Cockcroft-Gault) 5.2 5.2 Glucose Level 131 mg/dL (70-99) 144 mg/dL (70-99) Calcium Level 7.7 mg/dL (8.5-10.1) 7.6 mg/dL (8.5-10.1) Glucose (Fingerstick) 133 mg/dL (70-99) 147 mg/dL (70-99) Test 09/24/21 20:39 09/25/21 06:05 5/21/22 06:50 09/25/21 07:14 Glucose (Fingerstick) 234 mg/dL (70-99) 149 mg/dL (70-99) White Blood Count 6.7 x10^3/uL (4.0-11.0) Red Blood Count 2.88 x10^6/uL (4.30-5.70) Hemoglobin 9.6 g/dL (13.0-17.5) Hematocrit 28.2 % (39.0-53.0) Mean Corpuscular Volume 98 fL (79-100) Mean Corpuscular Hemoglobin 33 pg (25-35) Mean Corpuscular Hemoglobin Concent 34 g/dL (31-37) Red Cell Distribution Width 14.7 % (11.5-14.5) Platelet Count 134 x10^3/uL (140-400) Neutrophils (%) (Auto) 81 % (31-73) Lymphocytes (%) (Auto) 15 % (24-48) Monocytes (%) (Auto) 3 % (0-9) Eosinophils (%) (Auto) 0 % (0-3) Basophils (%) (Auto) 0 % (0-3) Neutrophils # (Auto) 5.5 x10^3/uL (1.8-7.7) Lymphocytes # (Auto) 1.0 x10^3/uL (1.0-4.8) Monocytes # (Auto) 0.2 x10^3/uL (0.0-1.1) Eosinophils # (Auto) 0.0 x10^3/uL (0.0-0.7) Basophils # (Auto) 0.0 x10^3/uL (0.0-0.2) Sodium Level 143 mmol/L (136-145) Potassium Level 5.4 mmol/L (3.5-5.1) Chloride Level 109 mmol/L (98-107) Carbon Dioxide Level 15 mmol/L (21-32) Anion Gap 19 (6-14) Blood Urea Nitrogen 95 mg/dL (8-26) Creatinine 10.1 mg/dL (0.7-1.3) Estimated GFR (Cockcroft-Gault) 5.2 Glucose Level 166 mg/dL (70-99) Calcium Level 8.0 mg/dL (8.5-10.1) Laboratory Tests Test 09/24/21 11:39 09/24/21 15:14 09/24/21 17:08 09/24/21 20:39 Glucose (Fingerstick) 133 mg/dL (70-99) 147 mg/dL (70-99) 234 mg/dL (70-99) Sodium Level 146 mmol/L (136-145) Potassium Level 4.8 mmol/L (3.5-5.1) Chloride Level 113 mmol/L (98-107) Carbon Dioxide Level 14 mmol/L (21-32) Anion Gap 19 (6-14) Blood Urea Nitrogen 91 mg/dL (8-26) Creatinine 10.2 mg/dL (0.7-1.3) Estimated GFR (Cockcroft-Gault) 5.2 Glucose Level 144 mg/dL (70-99) Calcium Level 7.6 mg/dL (8.5-10.1) Test 09/25/21 06:05 09/25/21 06:50 09/25/21 07:14 White Blood Count 6.7 x10^3/uL (4.0-11.0) Red Blood Count 2.88 x10^6/uL (4.30-5.70) Hemoglobin 9.6 g/dL (13.0-17.5) Hematocrit 28.2 % (39.0-53.0) Mean Corpuscular Volume 98 fL (79-100) Mean Corpuscular Hemoglobin 33 pg (25-35) Mean Corpuscular Hemoglobin Concent 34 g/dL (31-37) Red Cell Distribution Width 14.7 % (11.5-14.5) Platelet Count 134 x10^3/uL (140-400) Neutrophils (%) (Auto) 81 % (31-73) Lymphocytes (%) (Auto) 15 % (24-48) Monocytes (%) (Auto) 3 % (0-9) Eosinophils (%) (Auto) 0 % (0-3) Basophils (%) (Auto) 0 % (0-3) Neutrophils # (Auto) 5.5 x10^3/uL (1.8-7.7) Lymphocytes # (Auto) 1.0 x10^3/uL (1.0-4.8) Monocytes # (Auto) 0.2 x10^3/uL (0.0-1.1) Eosinophils # (Auto) 0.0 x10^3/uL (0.0-0.7) Basophils # (Auto) 0.0 x10^3/uL (0.0-0.2) Sodium Level 143 mmol/L (136-145) Potassium Level 5.4 mmol/L (3.5-5.1) Chloride Level 109 mmol/L (98-107) Carbon Dioxide Level 15 mmol/L (21-32) Anion Gap 19 (6-14) Blood Urea Nitrogen 95 mg/dL (8-26) Creatinine 10.1 mg/dL (0.7-1.3) Estimated GFR (Cockcroft-Gault) 5.2 Glucose Level 166 mg/dL (70-99) Calcium Level 8.0 mg/dL (8.5-10.1) Glucose (Fingerstick) 149 mg/dL (70-99) Medications Active Scripts Medications Dose Route/Sig Max Daily Dose Days Date Category Carvedilol 25 Mg Tablet 25 Mg PO BIDWMEALS 09/24/21 Reported B Complex (Vitamin B Complex) 1 Each Tablet 1 Tab PO DAILY 30 09/24/21 Reported Tramadol Hcl 50 Mg Tablet 50 Mg PO BID PRN 09/24/21 Reported Renal Caps Softgel (Folic Acid/Vitamin B Comp W-C) 1 Mg Capsule 1 Cap PO DAILY 30 09/24/21 Reported Omeprazole 20 Mg Capsule.dr 1 Cap PO DAILY 09/24/21 Reported Melatonin 3 Mg Tab.rapdis 1 Tab PO QHS 30 09/24/21 Reported Meclizine Hcl 12.5 Mg Tablet 1 Tab PO BID 09/24/21 Reported Levetiracetam 500 Mg Tab.er.24h 500 Mg PO DAILY 09/24/21 Reported Furosemide 40 Mg Tablet 1 Tab PO DAILY 09/24/21 Reported Fish Oil 1,000 mg Softgel ([place]-3/Dha/Epa/Fish Oil) 1,000 Mg Capsule 1,000 Mg PO BID 09/24/21 Reported Vitamin D2 (Ergocalciferol (Vitamin D2)) 1,250 Mcg Capsule 1,250 Mcg PO WEEKLY 09/24/21 Reported Docusate Sodium 100 Mg Capsule 1 Cap PO BID 7 09/24/21 Reported Calcium Acetate 667 Mg Tablet 3 Tab PO TID 30 09/24/21 Reported Atorvastatin Calcium 80 Mg Tablet 80 Mg PO QHS 09/24/21 Reported Levetiracetam 500 Mg Tablet 63 Mg PO QHS 08/16/17 Reported Pravastatin Sodium 40 Mg Tablet 1 Tab PO QHS 08/16/17 Reported Zoloft (Sertraline Hcl) 100 Mg Tablet 1 Tab PO DAILY 08/16/17 Reported Tylenol (Acetaminophen) 325 Mg Tablet 650 Mg PO Q8HRS PRN 08/16/17 Reported Gabapentin (Gabapentin) 400 Mg Capsule 400 Mg PO BID 08/16/17 Reported Vitamin D2 (Ergocalciferol (Vitamin D2)) 50,000 Unit Capsule 1 Cap PO WEEKLY 08/16/17 Reported Ranitidine Hcl 150 Mg Tablet 150 Mg PO DAILY 08/16/17 Reported Lisinopril 2.5 Mg Tablet 1 Tab PO DAILY 08/16/17 Reported Tramadol Hcl 50 Mg Tablet 100 Mg PO BID PRN 08/16/17 Reported Impression . IMPRESSION: 1. Respiratory distress secondary to acute exacerbation of chronic obstructive pulmonary disease and metabolic acidosis. 2. Severe metabolic acidosis related to end-stage renal disease, the patient refuses dialysis. 3. Clinical symptoms and signs of obstructive sleep apnea. 4. Suspect secondary pulmonary hypertension. 5. Abnormal x-ray revealing some chronic changes compatible with chronic pleural effusion and cardiomegaly. 6. Acute on chronic diastolic heart failure. 7. Hypertension. 8. Morbid obesity. 9. Chronic obstructive pulmonary disease, unknown FEV1. 10. Tobacco dependence, in remission. DISCUSSION: I had a candid discussion with the patient. I recommended that he utilize BiPAP. He declined. I have written an order for BiPAP with low pressures. We will attempt a BiPAP this evening. I promised the patient that if he is unable to wear the BiPAP, we will discontinue it. He does require an outpatient polysomnogram. With that being said, if he does not agree to hemodialysis, he surely will do poorly. Plan . Updated 09/25 Inform patient that his symptoms will not improve unless he starts dialysis, he led me to believe that he is willing to start dialysis Patient declined BiPAP yesterday Continue oxygen supplementation Discussed with RN Discussed with girlfriend at the bedside 09/24 PLAN: 1. Initiate treatment for acute exacerbation of chronic obstructive pulmonary disease. 2. Try BiPAP. 3. Follow Nephrology input. 4. Try to diurese per Nephrology. JINA OCAMPO MD September 25, 2021 10:56
[2021-09-25 11:00] VITALS: BP 185/75
[2021-09-25] MEDS ORDERED: DIALYSIS PATIENT. MC PRN ×2 (13:45)
--- NOTE | 2021-09-25 13:50 | PDOC ---
PROGRESS NOTES Date of Service DATE: 09/25/21 TIME: 13:48 Subjective Subjective SEEN IN FOLLOW UP OF ESRD OFF OF DIALYSIS FOR 2 YEARS Objective Objective Vital Signs Date Time Temp Pulse Resp B/P (MAP) Pulse Ox O2 Delivery O2 Flow Rate FiO2 09/25/21 11:46 93 185/75 09/25/21 11:00 98.1 18 96 Room Air 98.1 Intake and Output 09/25/21 07:00 Intake Total 600 ml Output Total 500 ml Balance 100 ml Intake Oral 600 ml Output Urine Total 500 ml Physical Exam Abdomen: Normal bowel sounds, Soft, No tenderness, No hepatosplenomegaly, No masses Heart: Regular rate, Normal S1, Normal S2, No murmurs, Gallops Extremities: Other (ANASARCA) General: Alert, Oriented X3, Cooperative Lungs: Normal air movement, Other (DECREASED BS AT BASES) Psych/Mental Status: Mental status NL, Mood NL Diagnosis RENAL FAILURE: ESRD Assessment Assessment Problems Medical Problems: (1) CHF exacerbation Status: Acute (2) COPD exacerbation Status: Acute (3) Metabolic acidosis Status: Acute (4) Orthopnea Status: Acute Plan Plan of Care HE IS AGREEABLE TO DIALYSIS. WILL RESTART TODAY. WILL NEED PLACEMENT AT [facility] Comment Review of Relevant I have reviewed the following items basil (where applicable) has been applied. Labs Laboratory Tests Test 09/24/21 01:35 09/24/21 05:00 09/24/21 05:15 09/24/21 08:52 White Blood Count 8.3 x10^3/uL (4.0-11.0) Red Blood Count 2.85 x10^6/uL (4.30-5.70) Hemoglobin 9.8 g/dL (13.0-17.5) Hematocrit 27.9 % (39.0-53.0) Mean Corpuscular Volume 98 fL (79-100) Mean Corpuscular Hemoglobin 34 pg (25-35) Mean Corpuscular Hemoglobin Concent 35 g/dL (31-37) Red Cell Distribution Width 14.4 % (11.5-14.5) Platelet Count 131 x10^3/uL (140-400) Neutrophils (%) (Auto) 71 % (31-73) Lymphocytes (%) (Auto) 18 % (24-48) Monocytes (%) (Auto) 6 % (0-9) Eosinophils (%) (Auto) 4 % (0-3) Basophils (%) (Auto) 1 % (0-3) Neutrophils # (Auto) 5.8 x10^3/uL (1.8-7.7) Lymphocytes # (Auto) 1.5 x10^3/uL (1.0-4.8) Monocytes # (Auto) 0.5 x10^3/uL (0.0-1.1) Eosinophils # (Auto) 0.3 x10^3/uL (0.0-0.7) Basophils # (Auto) 0.1 x10^3/uL (0.0-0.2) Sodium Level 147 mmol/L (136-145) Potassium Level 5.1 mmol/L (3.5-5.1) Chloride Level 112 mmol/L (98-107) Carbon Dioxide Level 14 mmol/L (21-32) Anion Gap 21 (6-14) Blood Urea Nitrogen 91 mg/dL (8-26) Creatinine 10.3 mg/dL (0.7-1.3) Estimated GFR (Cockcroft-Gault) 5.1 BUN/Creatinine Ratio 9 (6-20) Glucose Level 157 mg/dL (70-99) Hemoglobin A1c 6.0 % (4.8-5.6) Lactic Acid Level 0.5 mmol/L (0.4-2.0) Calcium Level 7.4 mg/dL (8.5-10.1) Total Bilirubin 0.3 mg/dL (0.2-1.0) Aspartate Amino Transf (AST/SGOT) 17 U/L (15-37) Alanine Aminotransferase (ALT/SGPT) 23 U/L (16-63) Alkaline Phosphatase 59 U/L (46-116) Troponin I High Sensitivity 53 ng/L (4-75) SU-Nut-W-Type Natriuretic Peptide > 97961 pg/mL (0-124) Total Protein 6.6 g/dL (6.4-8.2) Albumin 3.2 g/dL (3.4-5.0) Albumin/Globulin Ratio 0.9 (1.0-1.7) Triglycerides Level 124 mg/dL (0-150) Cholesterol Level 121 mg/dL (0-200) LDL Cholesterol, Calculated 65 mg/dL (0-100) VLDL Cholesterol, Calculated 25 mg/dL (0-40) Non-HDL Cholesterol Calculated 90 mg/dL (0-129) HDL Cholesterol 31 mg/dL (40-60) Cholesterol/HDL Ratio 3.9 Acetone Level Neg (NEG) Urine Collection Type Unknown Urine Color (Auto) Light yellow Urine Turbidity Clear Urine pH (Auto) 6.0 (<5.0-8.0) Urine Specific [place] 1.016 (1.000-1.030) Urine Protein (Auto) 300 mg/dL (Negative) Urine Glucose (Auto)(UA) 200 mg/dL (Negative) Urine Ketones (Auto) Negative mg/dL (Negative) Urine Blood (Auto) Small (Negative) Urine Nitrite Negative (Negative) Urine Bilirubin (Auto) Negative (Negative) Urine Urobilinogen (Auto) Normal mg/dL (Normal) Urine Leukocyte Esterase (Auto) Negative (Negative) Urine RBC Occ /HPF (0-2) Urine WBC 1-4 /HPF (0-4) Urine Squamous Epithelial Cells Occ /LPF Urine Bacteria 0 /HPF (0-FEW) Urine Hyaline Casts Occasional /HPF Urine Mucus Slight /LPF Urine Sperm Present /HPF O2 Saturation 92 % (92-99) Arterial Blood pH 7.29 (7.35-7.45) Arterial Blood pCO2 at Patient Temp 25 mmHg (35-46) Arterial Blood pO2 at Patient Temp 72 mmHg (65-108) Arterial Blood HCO3 12 mmol/L (21-28) Arterial Blood Base Excess -14 mmol/L (-3-3) FiO2 21 Glucose (Fingerstick) 130 mg/dL (70-99) Test 09/24/21 09:30 09/24/21 11:39 09/24/21 15:14 09/24/21 17:08 Sodium Level 146 mmol/L (136-145) 146 mmol/L (136-145) Potassium Level 5.4 mmol/L (3.5-5.1) 4.8 mmol/L (3.5-5.1) Chloride Level 113 mmol/L (98-107) 113 mmol/L (98-107) Carbon Dioxide Level 17 mmol/L (21-32) 14 mmol/L (21-32) Anion Gap 16 (6-14) 19 (6-14) Blood Urea Nitrogen 88 mg/dL (8-26) 91 mg/dL (8-26) Creatinine 10.2 mg/dL (0.7-1.3) 10.2 mg/dL (0.7-1.3) Estimated GFR (Cockcroft-Gault) 5.2 5.2 Glucose Level 131 mg/dL (70-99) 144 mg/dL (70-99) Calcium Level 7.7 mg/dL (8.5-10.1) 7.6 mg/dL (8.5-10.1) Glucose (Fingerstick) 133 mg/dL (70-99) 147 mg/dL (70-99) Test 09/24/21 20:39 09/25/21 06:05 09/25/21 06:50 09/25/21 07:14 Glucose (Fingerstick) 234 mg/dL (70-99) 149 mg/dL (70-99) White Blood Count 6.7 x10^3/uL (4.0-11.0) Red Blood Count 2.88 x10^6/uL (4.30-5.70) Hemoglobin 9.6 g/dL (13.0-17.5) Hematocrit 28.2 % (39.0-53.0) Mean Corpuscular Volume 98 fL (79-100) Mean Corpuscular Hemoglobin 33 pg (25-35) Mean Corpuscular Hemoglobin Concent 34 g/dL (31-37) Red Cell Distribution Width 14.7 % (11.5-14.5) Platelet Count 134 x10^3/uL (140-400) Neutrophils (%) (Auto) 81 % (31-73) Lymphocytes (%) (Auto) 15 % (24-48) Monocytes (%) (Auto) 3 % (0-9) Eosinophils (%) (Auto) 0 % (0-3) Basophils (%) (Auto) 0 % (0-3) Neutrophils # (Auto) 5.5 x10^3/uL (1.8-7.7) Lymphocytes # (Auto) 1.0 x10^3/uL (1.0-4.8) Monocytes # (Auto) 0.2 x10^3/uL (0.0-1.1) Eosinophils # (Auto) 0.0 x10^3/uL (0.0-0.7) Basophils # (Auto) 0.0 x10^3/uL (0.0-0.2) Sodium Level 143 mmol/L (136-145) Potassium Level 5.4 mmol/L (3.5-5.1) Chloride Level 109 mmol/L (98-107) Carbon Dioxide Level 15 mmol/L (21-32) Anion Gap 19 (6-14) Blood Urea Nitrogen 95 mg/dL (8-26) Creatinine 10.1 mg/dL (0.7-1.3) Estimated GFR (Cockcroft-Gault) 5.2 Glucose Level 166 mg/dL (70-99) Calcium Level 8.0 mg/dL (8.5-10.1) Test 09/25/21 11:56 Glucose (Fingerstick) 181 mg/dL (70-99) Laboratory Tests Test 09/24/21 15:14 09/24/21 17:08 09/24/21 20:39 09/25/21 06:05 Sodium Level 146 mmol/L (136-145) Potassium Level 4.8 mmol/L (3.5-5.1) Chloride Level 113 mmol/L (98-107) Carbon Dioxide Level 14 mmol/L (21-32) Anion Gap 19 (6-14) Blood Urea Nitrogen 91 mg/dL (8-26) Creatinine 10.2 mg/dL (0.7-1.3) Estimated GFR (Cockcroft-Gault) 5.2 Glucose Level 144 mg/dL (70-99) Calcium Level 7.6 mg/dL (8.5-10.1) Glucose (Fingerstick) 147 mg/dL (70-99) 234 mg/dL (70-99) White Blood Count 6.7 x10^3/uL (4.0-11.0) Red Blood Count 2.88 x10^6/uL (4.30-5.70) Hemoglobin 9.6 g/dL (13.0-17.5) Hematocrit 28.2 % (39.0-53.0) Mean Corpuscular Volume 98 fL (79-100) Mean Corpuscular Hemoglobin 33 pg (25-35) Mean Corpuscular Hemoglobin Concent 34 g/dL (31-37) Red Cell Distribution Width 14.7 % (11.5-14.5) Platelet Count 134 x10^3/uL (140-400) Neutrophils (%) (Auto) 81 % (31-73) Lymphocytes (%) (Auto) 15 % (24-48) Monocytes (%) (Auto) 3 % (0-9) Eosinophils (%) (Auto) 0 % (0-3) Basophils (%) (Auto) 0 % (0-3) Neutrophils # (Auto) 5.5 x10^3/uL (1.8-7.7) Lymphocytes # (Auto) 1.0 x10^3/uL (1.0-4.8) Monocytes # (Auto) 0.2 x10^3/uL (0.0-1.1) Eosinophils # (Auto) 0.0 x10^3/uL (0.0-0.7) Basophils # (Auto) 0.0 x10^3/uL (0.0-0.2) Test 09/25/21 06:50 09/25/21 07:14 09/25/21 11:56 Sodium Level 143 mmol/L (136-145) Potassium Level 5.4 mmol/L (3.5-5.1) Chloride Level 109 mmol/L (98-107) Carbon Dioxide Level 15 mmol/L (21-32) Anion Gap 19 (6-14) Blood Urea Nitrogen 95 mg/dL (8-26) Creatinine 10.1 mg/dL (0.7-1.3) Estimated GFR (Cockcroft-Gault) 5.2 Glucose Level 166 mg/dL (70-99) Calcium Level 8.0 mg/dL (8.5-10.1) Glucose (Fingerstick) 149 mg/dL (70-99) 181 mg/dL (70-99) Medications Current Medications Furosemide (Lasix) 60 mg 1X ONCE IVP Last administered on 09/24/21at 02:18; Start 09/24/21 at 01:30; Stop 09/24/21 at 01:31; Status DC Albuterol/ Ipratropium (Duoneb) 6 ml 1X ONCE NEB Last administered on 09/24/21at 03:09; Start 09/24/21 at 02:30; Stop 09/24/21 at 02:31; Status DC Lorazepam (Ativan Inj) 2 mg 1X ONCE IVP Last administered on 09/24/21at 04:03; Start 09/24/21 at 04:00; Stop 09/24/21 at 04:01; Status DC Sodium Bicarbonate 150 meq/Sterile Water 1,150 ml @ 125 mls/hr Q9H12M IV Last administered on 09/24/21at 05:28; Start 09/24/21 at 05:00; Stop 09/24/21 at 11:46; Status DC Furosemide (Lasix) 40 mg DAILY IVP Last administered on 09/24/21at 09:57; Start 09/24/21 at 09:00; Stop 09/24/21 at 11:46; Status DC Ondansetron HCl (Zofran) 4 mg PRN Q6HRS PRN IVP NAUSEA/VOMITING Last administered on 09/25/21at 01:55; Start 09/24/21 at 08:15 Al Hydroxide/Mg Hydroxide (Mylanta Plus Xs) 30 ml PRN Q3HRS PRN PO HEARTBURN / GAS; Start 09/24/21 at 08:15 Calcium Carbonate/ Glycine (Tums) 500 mg PRN Q3HRS PRN PO UPSET STOMACH Last administered on 09/25/21at 01:49; Start 09/24/21 at 08:15 Zolpidem Tartrate (Ambien) 5 mg PRN QHS PRN PO INSOMNIA, MAY REPEAT IN 1HR Last administered on 09/24/21at 22:29; Start 09/24/21 at 08:15 Morphine Sulfate (Morphine Sulfate) 2 mg PRN Q1HR PRN IV PAIN; Start 09/24/21 at 08:15 Acetaminophen/ Hydrocodone Bitart (Lortab 5/325) 1 tab PRN Q4HRS PRN PO MILD PAIN 1-3; Start 09/24/21 at 08:15 Acetaminophen (Tylenol) 650 mg PRN Q6HRS PRN PO Headaches, Temp > 101.5F Last administered on 09/24/21at 20:00; Start 09/24/21 at 08:15 Magnesium Hydroxide (Milk Of Magnesia) 2,400 mg PRN Q12HR PRN PO CONSTIPATION; Start 09/24/21 at 08:15 Heparin Sodium (Porcine) (Heparin Sodium) 5,000 unit Q8HRS SQ Last administered on 09/25/21at 05:52; Start 09/24/21 at 14:00 Hydralazine HCl (Apresoline Inj) 10 mg PRN Q4HRS PRN IVP ELEVATED BP, SEE COMMENTS Last administered on 09/24/21at 20:03; Start 09/24/21 at 09:45 Furosemide (Lasix) 40 mg BID92 IVP Last administered on 09/25/21at 10:11; Start 09/24/21 at 14:00 Sodium Bicarbonate (Sodium Bicarbonate) 650 mg TID PO Last administered on 09/24/21at 22:17; Start 09/24/21 at 14:00 Methylprednisolone Sodium Succinate (SOLU-Medrol 40MG VIAL) 62.5 mg DAILY IV Last administered on 09/25/21at 10:12; Start 09/24/21 at 13:15 Labetalol HCl (Normodyne Iv Push) 20 mg 1X ONCE IVP Last administered on 09/24/21at 15:14; Start 09/24/21 at 14:00; Stop 09/24/21 at 14:01; Status DC Labetalol HCl (Normodyne Iv Push) 20 mg PRN Q2HR PRN IVP HYPERTENSION Last administered on 09/25/21at 11:46; Start 09/24/21 at 14:00 Amlodipine Besylate (Norvasc) 10 mg DAILY PO ; Start 09/25/21 at 09:00 Amlodipine Besylate (Norvasc) 10 mg 1X ONCE PO Last administered on 09/24/21at 17:53; Start 09/24/21 at 14:45; Stop 09/24/21 at 14:52; Status DC Atorvastatin Calcium (Lipitor) 40 mg QHS PO Last administered on 09/24/21at 22:20; Start 09/24/21 at 21:00 Aspirin (Ecotrin) 81 mg DAILYWBKFT PO ; Start 09/25/21 at 08:00 Hydralazine HCl (Apresoline) 50 mg TID PO Last administered on 09/24/21at 22:17; Start 09/24/21 at 15:00 Isosorbide Mononitrate (Imdur) 30 mg DAILY PO ; Start 09/25/21 at 09:00 Lisinopril (Prinivil) 2.5 mg ONCE ONCE PO Last administered on 09/24/21at 22:18; Start 09/24/21 at 21:30; Stop 09/24/21 at 21:31; Status DC Methylprednisolone Sodium Succinate (SOLU-Medrol 125MG VIAL) 125 mg 1X ONCE IV Last administered on 09/25/21at 06:38; Start 09/25/21 at 07:00; Stop 09/25/21 at 07:01; Status DC Diphenhydramine HCl (Benadryl) 25 mg 1X ONCE IVP Last administered on 09/25/21at 06:38; Start 09/25/21 at 07:00; Stop 09/25/21 at 07:01; Status DC Info (PHARMACY MONITORING -- do not chart) 1 each PRN DAILY PRN MC SEE COMMENTS; Start 09/25/21 at 13:45; Status UNV Info (PHARMACY MONITORING -- do not chart) 1 each PRN DAILY PRN MC SEE COMMENTS; Start 09/25/21 at 13:45 Active Scripts Active Reported Carvedilol 25 Mg Tablet 25 Mg PO BIDWMEALS B Complex (Vitamin B Complex) 1 Each Tablet 1 Tab PO DAILY 30 Days Tramadol Hcl 50 Mg Tablet 50 Mg PO BID PRN Renal Caps Softgel (Folic Acid/Vitamin B Comp W-C) 1 Mg Capsule 1 Cap PO DAILY 30 Days Omeprazole 20 Mg Capsule.dr 1 Cap PO DAILY Melatonin 3 Mg Tab.rapdis 1 Tab PO QHS 30 Days Meclizine Hcl 12.5 Mg Tablet 1 Tab PO BID Levetiracetam 500 Mg Tab.er.24h 500 Mg PO DAILY Furosemide 40 Mg Tablet 1 Tab PO DAILY Fish Oil 1,000 mg Softgel (Shoup-3/Dha/Epa/Fish Oil) 1,000 Mg Capsule 1,000 Mg PO BID Vitamin D2 (Ergocalciferol (Vitamin D2)) 1,250 Mcg Capsule 1,250 Mcg PO WEEKLY Docusate Sodium 100 Mg Capsule 1 Cap PO BID 7 Days Calcium Acetate 667 Mg Tablet 3 Tab PO TID 30 Days Atorvastatin Calcium 80 Mg Tablet 80 Mg PO QHS Levetiracetam 500 Mg Tablet 63 Mg PO QHS Pravastatin Sodium 40 Mg Tablet 1 Tab PO QHS Zoloft (Sertraline Hcl) 100 Mg Tablet 1 Tab PO DAILY Tylenol (Acetaminophen) 325 Mg Tablet 650 Mg PO Q8HRS PRN Gabapentin (Gabapentin) 400 Mg Capsule 400 Mg PO BID Vitamin D2 (Ergocalciferol (Vitamin D2)) 50,000 Unit Capsule 1 Cap PO WEEKLY Ranitidine Hcl 150 Mg Tablet 150 Mg PO DAILY Lisinopril 2.5 Mg Tablet 1 Tab PO DAILY Tramadol Hcl 50 Mg Tablet 100 Mg PO BID PRN Vitals/I & O Vital Sign - Last 24 Hours 09/24/21 09/24/21 09/24/21 09/24/21 15:00 15:14 17:53 17:54 Temp 97.5 97.5 Pulse 89 92 92 92 B/P (MAP) 218/98 (138) 208/99 208/99 208/99 Pulse Ox 93 09/24/21 09/24/21 09/24/21 09/24/21 19:36 20:03 20:12 22:17 Temp 98.0 98.0 Pulse 94 95 97 B/P (MAP) 210/97 (134) 174/81 200/100 Pulse Ox 98 O2 Delivery Room Air Room Air 09/24/21 09/24/21 09/24/21 09/25/21 22:18 22:21 22:26 03:21 Temp 98.2 97.6 98.2 97.6 Pulse 95 92 95 B/P (MAP) 200/100 200/100 (133) 188/88 (121) 137/101 (113) Pulse Ox 98 95 O2 Delivery Room Air Room Air 09/25/21 09/25/21 09/25/21 07:00 11:00 11:46 Temp 98.0 98.1 98.0 98.1 Pulse 91 89 93 Resp B/P (MAP) 143/69 (93) 185/75 (111) 185/75 Pulse Ox 98 96 O2 Delivery Room Air Room Air Intake and Output 09/24/21 09/24/21 09/25/21 15:00 23:00 07:00 Intake Total 600 ml Output Total 300 ml 200 ml Balance -300 ml 400 ml Justifications for Admission Other Justification ISATU RODRIGUEZ MD September 25, 2021 13:50
[2021-09-25 16:39] VITALS: BP 144/69
--- NOTE | 2021-09-25 17:59 | PDOC ---
GENERAL General: Patient examined chart reviewed I met the patient this evening shortly after he finished his first hemodialysis in 30 days. He told me that he has been on dialysis ordered through the [place] for the last 2 years. He believes that his renal failure is due to longstanding diabetes and hypertension. He is extremely frustrated with the challenges and moving through the renal transplant assessment at the [place]. 30 days ago he was definitively refused from the [facility] and receiving an organ and he became so angry and upset that he decided to go on strike with his dialysis. He has not been dialyzed in 30 days and when he realized that he had survived that 30 days off of dialysis and was getting sicker he decided to come on into the hospital here. He is thinking that he might be assessed for renal transplant outside of the [place] given that he is now on Medicare disability due to his renal failure. We spent most of the visit kadeem discussing his frustrations and getting himself seen at the [facility] he has been a patient there for quite some time. He is glad that he decided to do the dialysis today and is thinking that he may have another treatment tomorrow. 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 He is much clearer tonight and is hungry and thirsty. Appreciate subspecialty support. Continue current management otherwise. Time spent today is 30 minutes with greater than 50% in counseling and coordination of care most of which in discussion with mc bhakta regarding care plan and progress. Problems: (1) ESRD (end stage renal disease) on dialysis (2) Non-compliance with renal dialysis (3) CHF exacerbation (4) COPD exacerbation VITAL SIGNS Vital Signs/I&O: Vital Signs Date Time Temp Pulse Resp B/P (MAP) Pulse Ox O2 Delivery O2 Flow Rate FiO2 09/25/21 16:39 94 18 144/69 (94) 96 09/25/21 11:00 98.1 Room Air 98.1 I & O 09/24/21 09/24/21 09/25/21 15:00 23:00 07:00 Intake Total 600 ml Output Total 300 ml 200 ml Balance -300 ml 400 ml Patient is quite perky and chatty this evening wants to review his history and full on our evaluation tonight HEENT exam is notable for dry mouth, large tongue, and the patient is edentulous Neck is soft and supple no adenopathy or thyromegaly noted Chest is clear to auscultation Heart S1-S2 normal regular rate and rhythm no murmurs or gallops are noted Abdomen is obese soft nontender nondistended no masses organomegaly noted Extremity exam is unremarkable for acute abnormality ALLERGIES Allergies: Allergies Coded Allergies Type Severity Reaction Last Updated Verified lisinopril Allergy Severe 09/25/21 Yes MEDS Medications: Current Medications Medications (Trade) Dose Ordered Sig/René Start Time Stop Time Status Last Admin Dose Admin Acetaminophen (Tylenol) 650 mg PRN Q6HRS PRN 09/24/21 08:15 09/24/21 20:00 Acetaminophen/ Hydrocodone Bitart (Lortab 5/325) 1 tab PRN Q4HRS PRN 09/24/21 08:15 Al Hydroxide/Mg Hydroxide (Mylanta Plus Xs) 30 ml PRN Q3HRS PRN 09/24/21 08:15 Albuterol/ Ipratropium (Duoneb) 6 ml 1X ONCE 09/24/21 02:30 09/24/21 02:31 DC 09/24/21 03:09 Amlodipine Besylate (Norvasc) 10 mg 1X ONCE 09/24/21 14:45 09/24/21 14:52 DC 09/24/21 17:53 Aspirin (Ecotrin) 81 mg DAILYWBKFT 09/25/21 08:00 Atorvastatin Calcium (Lipitor) 40 mg QHS 09/24/21 21:00 09/24/21 22:20 Calcium Carbonate/ Glycine (Tums) 500 mg PRN Q3HRS PRN 09/24/21 08:15 09/25/21 01:49 Diphenhydramine HCl (Benadryl) 25 mg 1X ONCE 09/25/21 07:00 09/25/21 07:01 DC 09/25/21 06:38 Furosemide (Lasix) 40 mg BID92 09/24/21 14:00 09/25/21 10:11 Heparin Sodium (Porcine) (Heparin Sodium) 5,000 unit Q8HRS 09/24/21 14:00 09/25/21 05:52 Hydralazine HCl (Apresoline Inj) 10 mg PRN Q4HRS PRN 09/24/21 09:45 09/24/21 20:03 Hydralazine HCl (Apresoline) 75 mg TID 09/25/21 21:00 Info (PHARMACY MONITORING -- do not chart) 1 each PRN DAILY PRN 09/25/21 13:45 Isosorbide Mononitrate (Imdur) 30 mg DAILY 09/25/21 09:00 Labetalol HCl (Normodyne Iv Push) 20 mg PRN Q2HR PRN 09/24/21 14:00 09/25/21 11:46 Lisinopril (Prinivil) 2.5 mg ONCE ONCE 09/24/21 21:30 09/24/21 21:31 DC 09/24/21 22:18 Lorazepam (Ativan Inj) 2 mg 1X ONCE 09/24/21 04:00 09/24/21 04:01 DC 09/24/21 04:03 Magnesium Hydroxide (Milk Of Magnesia) 2,400 mg PRN Q12HR PRN 09/24/21 08:15 Methylprednisolone Sodium Succinate (SOLU-Medrol 40MG VIAL) 62.5 mg DAILY 09/24/21 13:15 09/25/21 10:12 Methylprednisolone Sodium Succinate (SOLU-Medrol 125MG VIAL) 125 mg 1X ONCE 09/25/21 07:00 09/25/21 07:01 DC 09/25/21 06:38 Morphine Sulfate (Morphine Sulfate) 2 mg PRN Q1HR PRN 09/24/21 08:15 Ondansetron HCl (Zofran) 4 mg PRN Q6HRS PRN 09/24/21 08:15 09/25/21 01:55 Sodium Bicarbonate 150 meq/Sterile Water 1,150 ml @ 125 mls/hr Q9H12M 09/24/21 05:00 09/24/21 11:46 DC 09/24/21 05:28 Sodium Bicarbonate (Sodium Bicarbonate) 650 mg TID 09/24/21 14:00 09/24/21 22:17 Zolpidem Tartrate (Ambien) 5 mg PRN QHS PRN 09/24/21 08:15 09/24/21 22:29 Current Medications Medications (Trade) Dose Ordered Sig/René Route PRN Reason Start Time Stop Time Status Last Admin Dose Admin Atorvastatin Calcium (Lipitor) 40 mg QHS PO 09/24/21 21:00 09/24/21 22:20 Lisinopril (Prinivil) 2.5 mg ONCE ONCE PO 09/24/21 21:30 09/24/21 21:31 DC 09/24/21 22:18 Methylprednisolone Sodium Succinate (SOLU-Medrol 125MG VIAL) 125 mg 1X ONCE IV 09/25/21 07:00 09/25/21 07:01 DC 09/25/21 06:38 Diphenhydramine HCl (Benadryl) 25 mg 1X ONCE IVP 09/25/21 07:00 09/25/21 07:01 DC 09/25/21 06:38 LAB Lab: Laboratory Tests Test 09/24/21 20:39 09/25/21 06:05 09/25/21 06:50 09/25/21 07:14 Glucose (Fingerstick) 234 mg/dL (70-99) H 149 mg/dL (70-99) H White Blood Count 6.7 x10^3/uL (4.0-11.0) Red Blood Count 2.88 x10^6/uL (4.30-5.70) L Hemoglobin 9.6 g/dL (13.0-17.5) L Hematocrit 28.2 % (39.0-53.0) L Mean Corpuscular Volume 98 fL (79-100) Mean Corpuscular Hemoglobin 33 pg (25-35) Mean Corpuscular Hemoglobin Concent 34 g/dL (31-37) Red Cell Distribution Width 14.7 % (11.5-14.5) H Platelet Count 134 x10^3/uL (140-400) L Neutrophils (%) (Auto) 81 % (31-73) H Lymphocytes (%) (Auto) 15 % (24-48) L Monocytes (%) (Auto) 3 % (0-9) Eosinophils (%) (Auto) 0 % (0-3) Basophils (%) (Auto) 0 % (0-3) Neutrophils # (Auto) 5.5 x10^3/uL (1.8-7.7) Lymphocytes # (Auto) 1.0 x10^3/uL (1.0-4.8) Monocytes # (Auto) 0.2 x10^3/uL (0.0-1.1) Eosinophils # (Auto) 0.0 x10^3/uL (0.0-0.7) Basophils # (Auto) 0.0 x10^3/uL (0.0-0.2) Sodium Level 143 mmol/L (136-145) Potassium Level 5.4 mmol/L (3.5-5.1) H Chloride Level 109 mmol/L (98-107) H Carbon Dioxide Level 15 mmol/L (21-32) L Anion Gap 19 (6-14) H Blood Urea Nitrogen 95 mg/dL (8-26) H Creatinine 10.1 mg/dL (0.7-1.3) H Estimated GFR (Cockcroft-Gault) 5.2 Glucose Level 166 mg/dL (70-99) H Calcium Level 8.0 mg/dL (8.5-10.1) L Hepatitis B Surface Antigen Nonreactive (Nonreactive) Test 09/25/21 11:56 09/25/21 16:36 Glucose (Fingerstick) 181 mg/dL (70-99) H 139 mg/dL (70-99) H Laboratory Tests 09/25/21 06:05 Laboratory Tests 09/25/21 06:50 ASSESSMENT & PLAN A&P Plan as noted above This note was created using [employer] and may have omissions and/or errors due to 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 Justifications for Admission Other Justification RADHA LOPEZ MD September 25, 2021 17:59
[2021-09-25 19:55] VITALS: BP 140/53
[2021-09-25] MEDS ORDERED: ACETAMINOPHEN 325 MG TABLET. PO PRN (20:15)
[2021-09-25] MEDS: ACETAMINOPHEN 325 MG TABLET. PO PRN (20:44)
[2021-09-25] MEDS: ATORVASTATIN CALCIUM 40 MG TABLET. PO SCH (20:44)
[2021-09-25 23:24] VITALS: BP 111/64
[2021-09-26] MEDS ORDERED: POLYETHYLENE GLYCOL 3350 17 GM PACKET. PO PRN (01:15)
[2021-09-26] MEDS: HEPARIN for SUB-Q USE 5,000 UNIT/ML VIAL. SQ SCH ×3 (05:41→20:43)
[2021-09-26] MEDS: ACETAMINOPHEN 325 MG TABLET. PO PRN ×2 (05:45→20:58)
[2021-09-26 06:08] LABS: BASO % 0 % (0-3); EOS % 0 % (0-3); HEMATOCRIT 26.1 % (39.0-53.0); HEMOGLOBIN 8.8 g/dL (13.0-17.5); LYMPH % 12 % (24-48); MEAN CORPUSCULAR HEMOGLOBIN 33 pg (25-35); MEAN CORPUSCULAR HGB CONC 34 g/dL (31-37); MEAN CORPUSCULAR VOLUME 97 fL (79-100); MONO # 0.6 x10^3/uL (0.0-1.1); MONO % 7 % (0-9); NEUT # 7.1 x10^3/uL (1.8-7.7); NEUT % 81 % (31-73); PLATELET COUNT 130 x10^3/uL (140-400); RED BLOOD COUNT 2.69 x10^6/uL (4.30-5.70); RED CELL DISTRIBUTION WIDTH 14.3 % (11.5-14.5); WHITE BLOOD COUNT 8.8 x10^3/uL (4.0-11.0)
[2021-09-26 06:31] LABS: ALBUMIN/GLOBULIN RATIO 0.9 (1.0-1.7); CALCIUM 7.9 mg/dL (8.5-10.1); CREATININE 7.9 mg/dL (0.7-1.3); GFR 6.9; POTASSIUM 4.5 mmol/L (3.5-5.1); TOTAL BILIRUBIN 0.4 mg/dL (0.2-1.0); TOTAL PROTEIN 6.5 g/dL (6.4-8.2)
[2021-09-26 06:45] VITALS: BP 111/59
--- NOTE | 2021-09-26 07:12 | NUR ---
PATIENT'S SPO2 DROPPING TO 50-60% ON ROOM AIR WHILE ASLEEP. PT REFUSING BOTH NASAL CANNULA AND FACE MASK. SAYS "I don't need that crap, I've never had to wear that and I'm still here." PATIENT EDUCATED ON THE DANGERS OF LACK OF OXYGEN IN THE BODY, PATIENT STILL REFUSES. PATIENT REMAINS ON ROOM AIR AT ALL TIMES. WHILE AWAKE, SPO2 95-100% ON ROOM AIR. OTHER VITALS STABLE AT THIS TIME.
--- NOTE | 2021-09-26 07:52 | PDOC ---
PULMONARY PROGRESS NOTES DATE: 09/26/21 TIME: 07:52 Subjective No new complaints Patient with multiple complaints, not happy with [facility] "Nobody told him that his kidneys were bad " Vitals Vital Signs Date Time Temp Pulse Resp B/P (MAP) Pulse Ox O2 Delivery O2 Flow Rate FiO2 09/26/21 06:45 97.9 83 20 111/59 (76) 93 Room Air 97.9 09/25/21 19:55 2.0 ROS: No Nausea, No Chest Pain, No Abdominal Pain, No Increase Cough General: Alert Lungs: Crackles Cardiovascular: S1, S2 Abdomen: Soft Neuro Exam: Alert Extremities: No Edema, Other (Edema) Skin: Warm Labs Laboratory Tests Test 09/24/21 08:52 09/24/21 09:30 09/24/21 11:39 09/24/21 15:14 Glucose (Fingerstick) 130 mg/dL (70-99) 133 mg/dL (70-99) Sodium Level 146 mmol/L (136-145) 146 mmol/L (136-145) Potassium Level 5.4 mmol/L (3.5-5.1) 4.8 mmol/L (3.5-5.1) Chloride Level 113 mmol/L (98-107) 113 mmol/L (98-107) Carbon Dioxide Level 17 mmol/L (21-32) 14 mmol/L (21-32) Anion Gap 16 (6-14) 19 (6-14) Blood Urea Nitrogen 88 mg/dL (8-26) 91 mg/dL (8-26) Creatinine 10.2 mg/dL (0.7-1.3) 10.2 mg/dL (0.7-1.3) Estimated GFR (Cockcroft-Gault) 5.2 5.2 Glucose Level 131 mg/dL (70-99) 144 mg/dL (70-99) Calcium Level 7.7 mg/dL (8.5-10.1) 7.6 mg/dL (8.5-10.1) Test 09/24/21 17:08 09/24/21 20:39 09/25/21 06:05 09/25/21 06:50 Glucose (Fingerstick) 147 mg/dL (70-99) 234 mg/dL (70-99) White Blood Count 6.7 x10^3/uL (4.0-11.0) Red Blood Count 2.88 x10^6/uL (4.30-5.70) Hemoglobin 9.6 g/dL (13.0-17.5) Hematocrit 28.2 % (39.0-53.0) Mean Corpuscular Volume 98 fL (79-100) Mean Corpuscular Hemoglobin 33 pg (25-35) Mean Corpuscular Hemoglobin Concent 34 g/dL (31-37) Red Cell Distribution Width 14.7 % (11.5-14.5) Platelet Count 134 x10^3/uL (140-400) Neutrophils (%) (Auto) 81 % (31-73) Lymphocytes (%) (Auto) 15 % (24-48) Monocytes (%) (Auto) 3 % (0-9) Eosinophils (%) (Auto) 0 % (0-3) Basophils (%) (Auto) 0 % (0-3) Neutrophils # (Auto) 5.5 x10^3/uL (1.8-7.7) Lymphocytes # (Auto) 1.0 x10^3/uL (1.0-4.8) Monocytes # (Auto) 0.2 x10^3/uL (0.0-1.1) Eosinophils # (Auto) 0.0 x10^3/uL (0.0-0.7) Basophils # (Auto) 0.0 x10^3/uL (0.0-0.2) Sodium Level 143 mmol/L (136-145) Potassium Level 5.4 mmol/L (3.5-5.1) Chloride Level 109 mmol/L (98-107) Carbon Dioxide Level 15 mmol/L (21-32) Anion Gap 19 (6-14) Blood Urea Nitrogen 95 mg/dL (8-26) Creatinine 10.1 mg/dL (0.7-1.3) Estimated GFR (Cockcroft-Gault) 5.2 Glucose Level 166 mg/dL (70-99) Calcium Level 8.0 mg/dL (8.5-10.1) Hepatitis B Surface Antigen Nonreactive (Nonreactive) Test 09/25/21 07:14 09/25/21 11:56 09/25/21 16:36 09/25/21 20:01 Glucose (Fingerstick) 149 mg/dL (70-99) 181 mg/dL (70-99) 139 mg/dL (70-99) 226 mg/dL (70-99) Test 09/26/21 05:35 09/26/21 06:49 White Blood Count 8.8 x10^3/uL (4.0-11.0) Red Blood Count 2.69 x10^6/uL (4.30-5.70) Hemoglobin 8.8 g/dL (13.0-17.5) Hematocrit 26.1 % (39.0-53.0) Mean Corpuscular Volume 97 fL (79-100) Mean Corpuscular Hemoglobin 33 pg (25-35) Mean Corpuscular Hemoglobin Concent 34 g/dL (31-37) Red Cell Distribution Width 14.3 % (11.5-14.5) Platelet Count 130 x10^3/uL (140-400) Neutrophils (%) (Auto) 81 % (31-73) Lymphocytes (%) (Auto) 12 % (24-48) Monocytes (%) (Auto) 7 % (0-9) Eosinophils (%) (Auto) 0 % (0-3) Basophils (%) (Auto) 0 % (0-3) Neutrophils # (Auto) 7.1 x10^3/uL (1.8-7.7) Lymphocytes # (Auto) 1.0 x10^3/uL (1.0-4.8) Monocytes # (Auto) 0.6 x10^3/uL (0.0-1.1) Eosinophils # (Auto) 0.0 x10^3/uL (0.0-0.7) Basophils # (Auto) 0.0 x10^3/uL (0.0-0.2) Sodium Level 142 mmol/L (136-145) Potassium Level 4.5 mmol/L (3.5-5.1) Chloride Level 103 mmol/L (98-107) Carbon Dioxide Level 24 mmol/L (21-32) Anion Gap 15 (6-14) Blood Urea Nitrogen 73 mg/dL (8-26) Creatinine 7.9 mg/dL (0.7-1.3) Estimated GFR (Cockcroft-Gault) 6.9 BUN/Creatinine Ratio 9 (6-20) Glucose Level 150 mg/dL (70-99) Calcium Level 7.9 mg/dL (8.5-10.1) Total Bilirubin 0.4 mg/dL (0.2-1.0) Aspartate Amino Transf (AST/SGOT) 12 U/L (15-37) Alanine Aminotransferase (ALT/SGPT) 18 U/L (16-63) Alkaline Phosphatase 39 U/L (46-116) Total Protein 6.5 g/dL (6.4-8.2) Albumin 3.0 g/dL (3.4-5.0) Albumin/Globulin Ratio 0.9 (1.0-1.7) Glucose (Fingerstick) 141 mg/dL (70-99) Laboratory Tests Test 09/25/21 11:56 09/25/21 16:36 09/25/21 20:01 09/26/21 05:35 Glucose (Fingerstick) 181 mg/dL (70-99) 139 mg/dL (70-99) 226 mg/dL (70-99) White Blood Count 8.8 x10^3/uL (4.0-11.0) Red Blood Count 2.69 x10^6/uL (4.30-5.70) Hemoglobin 8.8 g/dL (13.0-17.5) Hematocrit 26.1 % (39.0-53.0) Mean Corpuscular Volume 97 fL (79-100) Mean Corpuscular Hemoglobin 33 pg (25-35) Mean Corpuscular Hemoglobin Concent 34 g/dL (31-37) Red Cell Distribution Width 14.3 % (11.5-14.5) Platelet Count 130 x10^3/uL (140-400) Neutrophils (%) (Auto) 81 % (31-73) Lymphocytes (%) (Auto) 12 % (24-48) Monocytes (%) (Auto) 7 % (0-9) Eosinophils (%) (Auto) 0 % (0-3) Basophils (%) (Auto) 0 % (0-3) Neutrophils # (Auto) 7.1 x10^3/uL (1.8-7.7) Lymphocytes # (Auto) 1.0 x10^3/uL (1.0-4.8) Monocytes # (Auto) 0.6 x10^3/uL (0.0-1.1) Eosinophils # (Auto) 0.0 x10^3/uL (0.0-0.7) Basophils # (Auto) 0.0 x10^3/uL (0.0-0.2) Sodium Level 142 mmol/L (136-145) Potassium Level 4.5 mmol/L (3.5-5.1) Chloride Level 103 mmol/L (98-107) Carbon Dioxide Level 24 mmol/L (21-32) Anion Gap 15 (6-14) Blood Urea Nitrogen 73 mg/dL (8-26) Creatinine 7.9 mg/dL (0.7-1.3) Estimated GFR (Cockcroft-Gault) 6.9 BUN/Creatinine Ratio 9 (6-20) Glucose Level 150 mg/dL (70-99) Calcium Level 7.9 mg/dL (8.5-10.1) Total Bilirubin 0.4 mg/dL (0.2-1.0) Aspartate Amino Transf (AST/SGOT) 12 U/L (15-37) Alanine Aminotransferase (ALT/SGPT) 18 U/L (16-63) Alkaline Phosphatase 39 U/L (46-116) Total Protein 6.5 g/dL (6.4-8.2) Albumin 3.0 g/dL (3.4-5.0) Albumin/Globulin Ratio 0.9 (1.0-1.7) Test 09/26/21 06:49 Glucose (Fingerstick) 141 mg/dL (70-99) Medications Active Scripts Medications Dose Route/Sig Max Daily Dose Days Date Category Carvedilol 25 Mg Tablet 25 Mg PO BIDWMEALS 09/24/21 Reported B Complex (Vitamin B Complex) 1 Each Tablet 1 Tab PO DAILY 09/24/21 Reported Tramadol Hcl 50 Mg Tablet 50 Mg PO BID PRN 09/24/21 Reported Renal Caps Softgel (Folic Acid/Vitamin B Comp W-C) 1 Mg Capsule 1 Cap PO DAILY 09/24/21 Reported Omeprazole 20 Mg Capsule. 1 Cap PO DAILY 09/24/21 Reported Melatonin 3 Mg Tab.rapdis 1 Tab PO QHS 30 09/24/21 Reported Meclizine Hcl 12.5 Mg Tablet 1 Tab PO BID 09/24/21 Reported Levetiracetam 500 Mg Tab.er.24h 500 Mg PO DAILY 09/24/21 Reported Furosemide 40 Mg Tablet 1 Tab PO DAILY 09/24/21 Reported Fish Oil 1,000 mg Softgel (Bly-3/Dha/Epa/Fish Oil) 1,000 Mg Capsule 1,000 Mg PO BID 09/24/21 Reported Vitamin D2 (Ergocalciferol (Vitamin D2)) 1,250 Mcg Capsule 1,250 Mcg PO WEEKLY 09/24/21 Reported Docusate Sodium 100 Mg Capsule 1 Cap PO BID 7 09/24/21 Reported Calcium Acetate 667 Mg Tablet 3 Tab PO TID 30 09/24/21 Reported Atorvastatin Calcium 80 Mg Tablet 80 Mg PO QHS 09/24/21 Reported Levetiracetam 500 Mg Tablet 63 Mg PO QHS 08/16/17 Reported Pravastatin Sodium 40 Mg Tablet 1 Tab PO QHS 08/16/17 Reported Zoloft (Sertraline Hcl) 100 Mg Tablet 1 Tab PO DAILY 08/16/17 Reported Tylenol (Acetaminophen) 325 Mg Tablet 650 Mg PO Q8HRS PRN 08/16/17 Reported Gabapentin (Gabapentin) 400 Mg Capsule 400 Mg PO BID 08/16/17 Reported Vitamin D2 (Ergocalciferol (Vitamin D2)) 50,000 Unit Capsule 1 Cap PO WEEKLY 08/16/17 Reported Ranitidine Hcl 150 Mg Tablet 150 Mg PO DAILY 08/16/17 Reported Lisinopril 2.5 Mg Tablet 1 Tab PO DAILY 08/16/17 Reported Tramadol Hcl 50 Mg Tablet 100 Mg PO BID PRN 08/16/17 Reported Impression . IMPRESSION: 1. Respiratory distress secondary to acute exacerbation of chronic obstructive pulmonary disease and metabolic acidosis. 2. Severe metabolic acidosis related to end-stage renal disease, the patient refuses dialysis. 3. Clinical symptoms and signs of obstructive sleep apnea. 4. Suspect secondary pulmonary hypertension. 5. Abnormal x-ray revealing some chronic changes compatible with chronic pleural effusion and cardiomegaly. 6. Acute on chronic diastolic heart failure. 7. Hypertension. 8. Morbid obesity. 9. Chronic obstructive pulmonary disease, unknown FEV1. 10. Tobacco dependence, in remission. DISCUSSION: I had a candid discussion with the patient. I recommended that he utilize BiPAP. He declined. I have written an order for BiPAP with low pressures. We will attempt a BiPAP this evening. I promised the patient that if he is unable to wear the BiPAP, we will discontinue it. He does require an outpatient polysomnogram. With that being said, if he does not agree to hemodialysis, he surely will do poorly. Plan . Updated 09/26 Agreeable to HD Inform patient that his symptoms will not improve unless he starts dialysis, he led me to believe that he is willing to start dialysis Patient declined BiPAP yesterday Continue oxygen supplementation Discussed with RN Discussed with girlfriend at the bedside JINA OCAMPO MD September 26, 2021 07:52
--- NOTE | 2021-09-26 09:10 | PDOC ---
PROGRESS NOTES Date of Service: DATE: 09/26/21 TIME: 09:10 Subjective Subjective No new complaints Objective Objective Vital Signs Date Time Temp Pulse Resp B/P (MAP) Pulse Ox O2 Delivery O2 Flow Rate FiO2 09/26/21 06:45 97.9 83 20 111/59 (76) 93 Room Air 97.9 09/25/21 19:55 2.0 Intake and Output 09/26/21 07:00 Intake Total 720 ml Output Total 450 ml Balance 270 ml Intake Oral 720 ml Output Urine Total 450 ml Physical Exam Abdomen: Normal bowel sounds, Soft, No tenderness, No hepatosplenomegaly, No masses Heart: Regular rate, Normal S1, Normal S2, No murmurs, Gallops Extremities: Other (ANASARCA) General: Alert, Oriented X3, Cooperative HEENT: Atraumatic, Mucous membr. moist/pink Lungs: Normal air movement, Other (DECREASED BS AT BASES) MUSCULOSKELETAL: Osteoarthritic changes both hands Neuro: Normal speech, Sensation intact Psych/Mental Status: Mental status NL, Mood NL Skin: No breakdown, No significant lesion Diagnosis RENAL FAILURE: ESRD Assessment Assessment 1. Acute on chronic systolic heart failure 2. ESRD: last HD 3 months ago, has been refusing dialysis 3. Suspect COPD with past tobacco abuse 4. Malignant Hypertension 5. CAD: past CABG reported 3 yrs ago. Stable and chest pain-free 6. Cardiomyopathy 7. AICD in situ: reported medtronic and follows with [facility] 8. DM2: per PCP 9. HLP 10. Hx of CVA 11. Hx of seizure: noted with Anniera on regimen 12. Mild hyperkalemia Recommendations 1. Increase hydralazine dose to 100 mg 3 times daily for better blood pressure control 2. 2D echo showed LVEF 20 to 25% 3. He does not want dialysis unless he is placed on a transplant list. Lasix therapy, will defer further to nephrology Plan Plan of Care Problems Medical Problems: (1) CHF exacerbation Status: Acute (2) COPD exacerbation Status: Acute (3) Metabolic acidosis Status: Acute (4) Orthopnea Status: Acute Comment Review of Relevant I have reviewed the following items basil (where applicable) has been applied. Labs Laboratory Tests Test 09/25/21 11:56 09/25/21 16:36 09/25/21 20:01 09/26/21 05:35 Glucose (Fingerstick) 181 mg/dL (70-99) 139 mg/dL (70-99) 226 mg/dL (70-99) White Blood Count 8.8 x10^3/uL (4.0-11.0) Red Blood Count 2.69 x10^6/uL (4.30-5.70) Hemoglobin 8.8 g/dL (13.0-17.5) Hematocrit 26.1 % (39.0-53.0) Mean Corpuscular Volume 97 fL (79-100) Mean Corpuscular Hemoglobin 33 pg (25-35) Mean Corpuscular Hemoglobin Concent 34 g/dL (31-37) Red Cell Distribution Width 14.3 % (11.5-14.5) Platelet Count 130 x10^3/uL (140-400) Neutrophils (%) (Auto) 81 % (31-73) Lymphocytes (%) (Auto) 12 % (24-48) Monocytes (%) (Auto) 7 % (0-9) Eosinophils (%) (Auto) 0 % (0-3) Basophils (%) (Auto) 0 % (0-3) Neutrophils # (Auto) 7.1 x10^3/uL (1.8-7.7) Lymphocytes # (Auto) 1.0 x10^3/uL (1.0-4.8) Monocytes # (Auto) 0.6 x10^3/uL (0.0-1.1) Eosinophils # (Auto) 0.0 x10^3/uL (0.0-0.7) Basophils # (Auto) 0.0 x10^3/uL (0.0-0.2) Sodium Level 142 mmol/L (136-145) Potassium Level 4.5 mmol/L (3.5-5.1) Chloride Level 103 mmol/L (98-107) Carbon Dioxide Level 24 mmol/L (21-32) Anion Gap 15 (6-14) Blood Urea Nitrogen 73 mg/dL (8-26) Creatinine 7.9 mg/dL (0.7-1.3) Estimated GFR (Cockcroft-Gault) 6.9 BUN/Creatinine Ratio 9 (6-20) Glucose Level 150 mg/dL (70-99) Calcium Level 7.9 mg/dL (8.5-10.1) Total Bilirubin 0.4 mg/dL (0.2-1.0) Aspartate Amino Transf (AST/SGOT) 12 U/L (15-37) Alanine Aminotransferase (ALT/SGPT) 18 U/L (16-63) Alkaline Phosphatase 39 U/L (46-116) Total Protein 6.5 g/dL (6.4-8.2) Albumin 3.0 g/dL (3.4-5.0) Albumin/Globulin Ratio 0.9 (1.0-1.7) Test 09/26/21 06:49 Glucose (Fingerstick) 141 mg/dL (70-99) Medications Current Medications Acetaminophen (Tylenol) 650 mg PRN Q6HRS PRN PO MILD PAIN / TEMP > 100.3'F; Start 09/25/21 at 20:15 Hydralazine HCl (Apresoline) 75 mg TID PO Last administered on 09/25/21at 20:45; Start 09/25/21 at 21:00 Info (PHARMACY MONITORING -- do not chart) 1 each PRN DAILY PRN MC SEE COMMENTS; Start 09/25/21 at 13:45 Info (PHARMACY MONITORING -- do not chart) 1 each PRN DAILY PRN MC SEE COMMENTS; Start 09/25/21 at 13:45; Status UNV Polyethylene Glycol (miraLAX PACKET) 17 gm PRN DAILY PRN PO CONSTIPATION 1ST CHOICE; Start 09/26/21 at 01:15 Vitals/I & O Vital Sign - Last 24 Hours 09/25/21 09/25/21 09/25/21 09/25/21 11:00 11:46 16:39 19:30 Temp 98.1 98.1 Pulse 89 93 94 Resp 18 18 B/P (MAP) 185/75 (111) 185/75 144/69 (94) Pulse Ox 96 96 O2 Delivery Room Air Nasal Cannula O2 Flow Rate 2.0 09/25/21 09/25/21 09/25/21 09/26/21 19:55 20:45 23:24 03:56 Temp 99.8 98.7 99.8 98.7 Pulse 97 94 93 85 Resp B/P (MAP) 140/53 (82) 144/69 111/64 (80) Pulse Ox 98 98 O2 Delivery Nasal Cannula NonRebreather Mask O2 Flow Rate 2.0 09/26/21 06:45 Temp 97.9 97.9 Pulse 83 Resp 20 B/P (MAP) 111/59 (76) Pulse Ox 93 O2 Delivery Room Air Intake and Output 09/25/21 09/25/21 09/26/21 15:00 23:00 07:00 Intake Total 20 ml 200 ml 500 ml Output Total 450 ml Balance 20 ml -250 ml 500 ml DIPESH REECE MD September 26, 2021 09:10
[2021-09-26] MEDS: ASPIRIN ENTERIC COATED 81 MG TABLET.DR. PO SCH (09:23)
[2021-09-26] MEDS: methylPREDNISolone SOD SUCC PF 40 MG/ML VIAL. IV SCH (09:23)
[2021-09-26] MEDS: SODIUM BICARBONATE 650 MG TABLET. PO SCH ×3 (09:23→20:43)
[2021-09-26 09:25] VITALS: BP 151/80
[2021-09-26] MEDS: FUROSEMIDE 40 MG/4 ML VIAL. IVP SCH ×2 (09:25→14:38)
[2021-09-26] MEDS: ISOSORBIDE MONONITRATE ER 30 MG TAB.ER.24H PO SCH (09:32)
[2021-09-26 11:00] VITALS: BP 128/60
--- NOTE | 2021-09-26 12:44 | PDOC ---
GENERAL General: Patient examined chart reviewed seen with girlfriend at bedside. He is all fired up like he was yesterday though does admit that he is feeling a lot better after just that 1 episode of hemodialysis. Nurse tells me that he has had episodes of desaturation to 40s to 50s pulse ox. Patient tells me he is not surprised by that has been the case for quite some time. I suspect that with continued efficient hemodialysis he will feel better and oxygenate better. Unclear whether he is set to go to dialysis today. Appreciate subspecialty support. Continue current management otherwise. Time spent today is 30 minutes with greater than 50% in counseling and coordination of care most of which in discussion with patient regarding care plan and progress. Problems: (1) ESRD (end stage renal disease) on dialysis (2) Non-compliance with renal dialysis (3) COPD exacerbation (4) CHF exacerbation VITAL SIGNS Vital Signs/I&O: Vital Signs Date Time Temp Pulse Resp B/P (MAP) Pulse Ox O2 Delivery O2 Flow Rate FiO2 09/26/21 11:00 99.3 82 20 128/60 (82) 95 Room Air 99.3 09/25/21 19:55 2.0 I & O 09/25/21 09/25/21 09/26/21 15:00 23:00 07:00 Intake Total 20 ml 200 ml 500 ml Output Total 450 ml Balance 20 ml -250 ml 500 ml In general patient is little bit less cranky today quite animated tells me he is feeling better alert and oriented x3 no acute distress HEENT exam is unremarkable for acute abnormality Chest is clear to auscultation Heart S1-S2 normal regular rate and rhythm no murmurs or gallops are noted Abdomen soft nontender nondistended no masses organomegaly noted Extremity exam is unremarkable for acute abnormality ALLERGIES Allergies: Allergies Coded Allergies Type Severity Reaction Last Updated Verified lisinopril Allergy Severe 09/25/21 Yes MEDS Medications: Current Medications Medications (Trade) Dose Ordered Sig/René Start Time Stop Time Status Last Admin Dose Admin Acetaminophen (Tylenol) 650 mg PRN Q6HRS PRN 09/25/21 20:15 Acetaminophen/ Hydrocodone Bitart (Lortab 5/325) 1 tab PRN Q4HRS PRN 09/24/21 08:15 Al Hydroxide/Mg Hydroxide (Mylanta Plus Xs) 30 ml PRN Q3HRS PRN 09/24/21 08:15 Albuterol/ Ipratropium (Duoneb) 6 ml 1X ONCE 09/24/21 02:30 09/24/21 02:31 DC 09/24/21 03:09 Amlodipine Besylate (Norvasc) 10 mg 1X ONCE 09/24/21 14:45 09/24/21 14:52 DC 09/24/21 17:53 Aspirin (Ecotrin) 81 mg [id number] 09/25/21 08:00 09/26/21 09:23 Atorvastatin Calcium (Lipitor) 40 mg QHS 09/24/21 21:00 09/25/21 20:44 Calcium Carbonate/ Glycine (Tums) 500 mg PRN Q3HRS PRN 09/24/21 08:15 09/25/21 01:49 Diphenhydramine HCl (Benadryl) 25 mg 1X ONCE 09/25/21 07:00 09/25/21 07:01 DC 09/25/21 06:38 Furosemide (Lasix) 40 mg [id number] 09/24/21 14:00 09/26/21 09:25 Heparin Sodium (Porcine) (Heparin Sodium) 5,000 unit Q8HRS 09/24/21 14:00 09/26/21 05:41 Hydralazine HCl (Apresoline Inj) 10 mg PRN Q4HRS PRN 09/24/21 09:45 09/24/21 20:03 Hydralazine HCl (Apresoline) 100 mg TID 09/26/21 14:00 Info (PHARMACY MONITORING -- do not chart) 1 each PRN DAILY PRN 09/25/21 13:45 Isosorbide Mononitrate (Imdur) 30 mg DAILY 09/25/21 09:00 09/26/21 09:32 Labetalol HCl (Normodyne Iv Push) 20 mg PRN Q2HR PRN 09/24/21 14:00 09/25/21 11:46 Lisinopril (Prinivil) 2.5 mg ONCE ONCE 09/24/21 21:30 09/24/21 21:31 DC 09/24/21 22:18 Lorazepam (Ativan Inj) 2 mg 1X ONCE 09/24/21 04:00 09/24/21 04:01 DC 09/24/21 04:03 Magnesium Hydroxide (Milk Of Magnesia) 2,400 mg PRN Q12HR PRN 09/24/21 08:15 Methylprednisolone Sodium Succinate (SOLU-Medrol 40MG VIAL) 62.5 mg DAILY 09/24/21 13:15 09/26/21 09:23 Methylprednisolone Sodium Succinate (SOLU-Medrol 125MG VIAL) 125 mg 1X ONCE 09/25/21 07:00 09/25/21 07:01 DC 09/25/21 06:38 Morphine Sulfate (Morphine Sulfate) 2 mg PRN Q1HR PRN 09/24/21 08:15 Ondansetron HCl (Zofran) 4 mg PRN Q6HRS PRN 09/24/21 08:15 09/25/21 01:55 Polyethylene Glycol (miraLAX PACKET) 17 gm PRN DAILY PRN 09/26/21 01:15 09/26/21 09:22 Sodium Bicarbonate 150 meq/Sterile Water 1,150 ml @ 125 mls/hr Q9H12M 09/24/21 05:00 09/24/21 11:46 DC 09/24/21 05:28 Sodium Bicarbonate (Sodium Bicarbonate) 650 mg TID 09/24/21 14:00 09/26/21 09:23 Zolpidem Tartrate (Ambien) 5 mg PRN QHS PRN 09/24/21 08:15 09/24/21 22:29 Current Medications Medications (Trade) Dose Ordered Sig/René Route PRN Reason Start Time Stop Time Status Last Admin Dose Admin Hydralazine HCl (Apresoline) 75 mg TID PO 09/25/21 21:00 09/26/21 11:09 DC 09/26/21 09:29 Polyethylene Glycol (miraLAX PACKET) 17 gm PRN DAILY PRN PO CONSTIPATION 1ST CHOICE 09/26/21 01:15 09/26/21 09:22 LAB Lab: Laboratory Tests Test 09/25/21 16:36 09/25/21 20:01 09/26/21 05:35 09/26/21 06:49 Glucose (Fingerstick) 139 mg/dL (70-99) H 226 mg/dL (70-99) H 141 mg/dL (70-99) H White Blood Count 8.8 x10^3/uL (4.0-11.0) Red Blood Count 2.69 x10^6/uL (4.30-5.70) L Hemoglobin 8.8 g/dL (13.0-17.5) L Hematocrit 26.1 % (39.0-53.0) L Mean Corpuscular Volume 97 fL (79-100) Mean Corpuscular Hemoglobin 33 pg (25-35) Mean Corpuscular Hemoglobin Concent 34 g/dL (31-37) Red Cell Distribution Width 14.3 % (11.5-14.5) Platelet Count 130 x10^3/uL (140-400) L Neutrophils (%) (Auto) 81 % (31-73) H Lymphocytes (%) (Auto) 12 % (24-48) L Monocytes (%) (Auto) 7 % (0-9) Eosinophils (%) (Auto) 0 % (0-3) Basophils (%) (Auto) 0 % (0-3) Neutrophils # (Auto) 7.1 x10^3/uL (1.8-7.7) Lymphocytes # (Auto) 1.0 x10^3/uL (1.0-4.8) Monocytes # (Auto) 0.6 x10^3/uL (0.0-1.1) Eosinophils # (Auto) 0.0 x10^3/uL (0.0-0.7) Basophils # (Auto) 0.0 x10^3/uL (0.0-0.2) Sodium Level 142 mmol/L (136-145) Potassium Level 4.5 mmol/L (3.5-5.1) Chloride Level 103 mmol/L (98-107) Carbon Dioxide Level 24 mmol/L (21-32) Anion Gap 15 (6-14) H Blood Urea Nitrogen 73 mg/dL (8-26) H Creatinine 7.9 mg/dL (0.7-1.3) H Estimated GFR (Cockcroft-Gault) 6.9 BUN/Creatinine Ratio 9 (6-20) Glucose Level 150 mg/dL (70-99) H Calcium Level 7.9 mg/dL (8.5-10.1) L Total Bilirubin 0.4 mg/dL (0.2-1.0) Aspartate Amino Transferase (AST) 12 U/L (15-37) L Alanine Aminotransferase (ALT) 18 U/L (16-63) Alkaline Phosphatase 39 U/L (46-116) L Total Protein 6.5 g/dL (6.4-8.2) Albumin 3.0 g/dL (3.4-5.0) L Albumin/Globulin Ratio 0.9 (1.0-1.7) L Test 09/26/21 11:16 Glucose (Fingerstick) 216 mg/dL (70-99) H Laboratory Tests 09/26/21 05:35 Laboratory Tests 09/26/21 05:35 ASSESSMENT & PLAN A&P Plan as noted above This note was created using [employer] and may have omissions and/or errors due to the nature of real-time voice plate colorer. Justifications for Admission Other Justification RAHDA LOPEZ MD September 26, 2021 12:44
[2021-09-26] MEDS ORDERED: DEXTROSE 50% 25 GM / 50ML DISP.SYRIN. IV PRN (12:45)
[2021-09-26 14:53] VITALS: BP 114/55
[2021-09-26] MEDS: CALCIUM CARBONATE 500 MG TAB.CHEW PO PRN (14:58)
[2021-09-26] MEDS ORDERED: INSULIN LISPRO 300 UNITS/3 ML VIAL. SQ ONE (17:15)
[2021-09-26] MEDS: INSULIN LISPRO 300 UNITS/3 ML VIAL. SQ SCH (17:23)
[2021-09-26 19:12] VITALS: BP 133/63
[2021-09-26] MEDS: ATORVASTATIN CALCIUM 40 MG TABLET. PO SCH (20:42)
[2021-09-26 22:51] VITALS: BP 141/60
[2021-09-27 03:02] VITALS: BP 160/81
[2021-09-27] MEDS: CALCIUM CARBONATE 500 MG TAB.CHEW PO PRN (03:06)
[2021-09-27 04:37] LABS: ALBUMIN/GLOBULIN RATIO 0.9 (1.0-1.7); CALCIUM 7.2 mg/dL (8.5-10.1); CREATININE 9.2 mg/dL (0.7-1.3); GFR 5.8; POTASSIUM 4.5 mmol/L (3.5-5.1); TOTAL BILIRUBIN 0.3 mg/dL (0.2-1.0); TOTAL PROTEIN 6.2 g/dL (6.4-8.2)
[2021-09-27] MEDS: HEPARIN for SUB-Q USE 5,000 UNIT/ML VIAL. SQ SCH ×3 (06:03→21:55)
[2021-09-27 07:00] VITALS: BP 195/88
[2021-09-27] MEDS: INSULIN LISPRO 300 UNITS/3 ML VIAL. SQ SCH ×3 (08:00→17:08)
[2021-09-27] MEDS ORDERED: IV NORMAL SALINE 1000ML BAG 1,000 ML IV PRN ×2 (08:15)
[2021-09-27] MEDS ORDERED: DIALYSIS PATIENT. MC PRN (08:15)
[2021-09-27] MEDS: FUROSEMIDE 40 MG/4 ML VIAL. IVP SCH ×2 (08:33→13:34)
[2021-09-27] MEDS: SODIUM BICARBONATE 650 MG TABLET. PO SCH ×3 (08:34→21:55)
--- NOTE | 2021-09-27 08:41 | PDOC ---
[facility] PROGRESS NOTE Date of Service DOS: DATE: 09/27/21 TIME: 08:08 Chief Complaint Chief Complaint Acute on chronic systolic heart failure ESRD: last HD 3 months ago, has been refusing dialysis ? COPD with past tobacco abuse Hypertensive urgency CAD s/p CABG Ischemic Cardiomyopathy s/p AICD medtronic and [facility] DM2 - basal bolus plus insulin HLD - statin H/o CVA H/o seizures Hyperkalemia FEN - Renal ADA PPX - heparin CODE - DNR/DNI Dispo - inpatient History of Present Illness History of Present Illness Mr Warren is a 66 yo male w/ PMHx CAD s/p CABG, cardiomyopathy s/p AICD placement, ESRD who comes into ED c/o worsening shortness of breath and weakness. Admitted with cardiology and nephrology consultation. As well as pulmonology consultation initially offered BiPAP due to his respiratory distress he refused this. He also had noted historically he was being worked up for renal transplant but was told this is previously known option and that is why he had recently discontinued dialysis care. 09/25: Dialysis tolerated 09/26: Weak, still in respiratory distress 09/27: Seen bedside feeling weak. Plans for dialysis today, BUN 92. Need to ensure he has dialysis clinic follow-up. Vitals/I&O Vitals/I&O: Vital Signs Date Time Temp Pulse Resp B/P (MAP) Pulse Ox O2 Delivery O2 Flow Rate FiO2 09/27/21 07:00 99.2 85 18 195/88 (123) 96 Room Air 99.2 I & O 09/26/21 09/26/21 09/27/21 15:00 23:00 07:00 Intake Total 250 ml 1600 ml 300 ml Output Total 400 ml Balance 250 ml 1200 ml 300 ml Physical Exam General: Alert, Oriented X3, Cooperative Heart: Regular rate, Normal S1, Normal S2, No murmurs, Gallops Lungs: Crackles Abdomen: Normal bowel sounds, Soft, No tenderness, No hepatosplenomegaly, No masses Extremities: Other (ANASARCA) Skin: No breakdown, No significant lesion Labs Labs: Laboratory Tests Test 09/26/21 11:16 09/26/21 16:30 09/26/21 20:54 09/27/21 03:20 Glucose (Fingerstick) 216 mg/dL (70-99) 375 mg/dL (70-99) 228 mg/dL (70-99) Sodium Level 140 mmol/L (136-145) Potassium Level 4.5 mmol/L (3.5-5.1) Chloride Level 101 mmol/L (98-107) Carbon Dioxide Level 23 mmol/L (21-32) Anion Gap 16 (6-14) Blood Urea Nitrogen 92 mg/dL (8-26) Creatinine 9.2 mg/dL (0.7-1.3) Estimated GFR (Cockcroft-Gault) 5.8 BUN/Creatinine Ratio 10 (6-20) Glucose Level 156 mg/dL (70-99) Calcium Level 7.2 mg/dL (8.5-10.1) Total Bilirubin 0.3 mg/dL (0.2-1.0) Aspartate Amino Transf (AST/SGOT) 22 U/L (15-37) Alanine Aminotransferase (ALT/SGPT) 23 U/L (16-63) Alkaline Phosphatase 44 U/L (46-116) Total Protein 6.2 g/dL (6.4-8.2) Albumin 3.0 g/dL (3.4-5.0) Albumin/Globulin Ratio 0.9 (1.0-1.7) Test 09/27/21 07:11 Glucose (Fingerstick) 132 mg/dL (70-99) Assessment and Plan Assessmemt and Plan Problems Medical Problems: (1) CHF exacerbation Status: Acute (2) COPD exacerbation Status: Acute (3) Metabolic acidosis Status: Acute (4) Orthopnea Status: Acute Comment Review of Relevant I have reviewed the following items basil (where applicable) has been applied. Medications: Current Medications Medications (Trade) Dose Ordered Sig/René Route PRN Reason Start Time Stop Time Status Last Admin Dose Admin Hydralazine HCl (Apresoline) 100 mg TID PO 09/26/21 14:00 09/26/21 20:43 Insulin Human Lispro (HumaLOG) 0-7 UNITS TIDWMEALS SQ 09/26/21 17:00 09/26/21 17:23 Insulin Human Lispro (HumaLOG) 10 units 1X ONCE SQ 09/26/21 17:15 09/26/21 17:34 DC 09/26/21 17:38 Justifications for Admission Other Justification EVIN CORMIER MD September 27, 2021 08:41
--- NOTE | 2021-09-27 09:07 | PDOC ---
PULMONARY PROGRESS NOTES DATE: 09/27/21 TIME: 09:07 Subjective Patient feels better after dialysis, less short of air Vitals Vital Signs Date Time Temp Pulse Resp B/P (MAP) Pulse Ox O2 Delivery O2 Flow Rate FiO2 09/27/21 07:00 99.2 85 18 195/88 (123) 96 Room Air 99.2 ROS: No Nausea, No Chest Pain, No Abdominal Pain, No Increase Cough General: Alert Lungs: Crackles Cardiovascular: S1, S2 Abdomen: Soft Neuro Exam: Alert Extremities: No Edema, Other (Edema) Skin: Warm Labs Laboratory Tests Test 09/25/21 11:56 09/25/21 16:36 09/25/21 20:01 09/26/21 05:35 Glucose (Fingerstick) 181 mg/dL (70-99) 139 mg/dL (70-99) 226 mg/dL (70-99) White Blood Count 8.8 x10^3/uL (4.0-11.0) Red Blood Count 2.69 x10^6/uL (4.30-5.70) Hemoglobin 8.8 g/dL (13.0-17.5) Hematocrit 26.1 % (39.0-53.0) Mean Corpuscular Volume 97 fL (79-100) Mean Corpuscular Hemoglobin 33 pg (25-35) Mean Corpuscular Hemoglobin Concent 34 g/dL (31-37) Red Cell Distribution Width 14.3 % (11.5-14.5) Platelet Count 130 x10^3/uL (140-400) Neutrophils (%) (Auto) 81 % (31-73) Lymphocytes (%) (Auto) 12 % (24-48) Monocytes (%) (Auto) 7 % (0-9) Eosinophils (%) (Auto) 0 % (0-3) Basophils (%) (Auto) 0 % (0-3) Neutrophils # (Auto) 7.1 x10^3/uL (1.8-7.7) Lymphocytes # (Auto) 1.0 x10^3/uL (1.0-4.8) Monocytes # (Auto) 0.6 x10^3/uL (0.0-1.1) Eosinophils # (Auto) 0.0 x10^3/uL (0.0-0.7) Basophils # (Auto) 0.0 x10^3/uL (0.0-0.2) Sodium Level 142 mmol/L (136-145) Potassium Level 4.5 mmol/L (3.5-5.1) Chloride Level 103 mmol/L (98-107) Carbon Dioxide Level 24 mmol/L (21-32) Anion Gap 15 (6-14) Blood Urea Nitrogen 73 mg/dL (8-26) Creatinine 7.9 mg/dL (0.7-1.3) Estimated GFR (Cockcroft-Gault) 6.9 BUN/Creatinine Ratio 9 (6-20) Glucose Level 150 mg/dL (70-99) Calcium Level 7.9 mg/dL (8.5-10.1) Total Bilirubin 0.4 mg/dL (0.2-1.0) Aspartate Amino Transf (AST/SGOT) 12 U/L (15-37) Alanine Aminotransferase (ALT/SGPT) 18 U/L (16-63) Alkaline Phosphatase 39 U/L (46-116) Total Protein 6.5 g/dL (6.4-8.2) Albumin 3.0 g/dL (3.4-5.0) Albumin/Globulin Ratio 0.9 (1.0-1.7) Test 09/26/21 06:49 09/26/21 11:16 09/26/21 16:30 09/26/21 20:54 Glucose (Fingerstick) 141 mg/dL (70-99) 216 mg/dL (70-99) 375 mg/dL (70-99) 228 mg/dL (70-99) Test 09/27/21 03:20 09/27/21 07:11 Sodium Level 140 mmol/L (136-145) Potassium Level 4.5 mmol/L (3.5-5.1) Chloride Level 101 mmol/L (98-107) Carbon Dioxide Level 23 mmol/L (21-32) Anion Gap 16 (6-14) Blood Urea Nitrogen 92 mg/dL (8-26) Creatinine 9.2 mg/dL (0.7-1.3) Estimated GFR (Cockcroft-Gault) 5.8 BUN/Creatinine Ratio 10 (6-20) Glucose Level 156 mg/dL (70-99) Calcium Level 7.2 mg/dL (8.5-10.1) Total Bilirubin 0.3 mg/dL (0.2-1.0) Aspartate Amino Transf (AST/SGOT) 22 U/L (15-37) Alanine Aminotransferase (ALT/SGPT) 23 U/L (16-63) Alkaline Phosphatase 44 U/L (46-116) Total Protein 6.2 g/dL (6.4-8.2) Albumin 3.0 g/dL (3.4-5.0) Albumin/Globulin Ratio 0.9 (1.0-1.7) Glucose (Fingerstick) 132 mg/dL (70-99) Laboratory Tests Test 09/26/21 11:16 09/26/21 16:30 09/26/21 20:54 09/27/21 03:20 Glucose (Fingerstick) 216 mg/dL (70-99) 375 mg/dL (70-99) 228 mg/dL (70-99) Sodium Level 140 mmol/L (136-145) Potassium Level 4.5 mmol/L (3.5-5.1) Chloride Level 101 mmol/L (98-107) Carbon Dioxide Level 23 mmol/L (21-32) Anion Gap 16 (6-14) Blood Urea Nitrogen 92 mg/dL (8-26) Creatinine 9.2 mg/dL (0.7-1.3) Estimated GFR (Cockcroft-Gault) 5.8 BUN/Creatinine Ratio 10 (6-20) Glucose Level 156 mg/dL (70-99) Calcium Level 7.2 mg/dL (8.5-10.1) Total Bilirubin 0.3 mg/dL (0.2-1.0) Aspartate Amino Transf (AST/SGOT) 22 U/L (15-37) Alanine Aminotransferase (ALT/SGPT) 23 U/L (16-63) Alkaline Phosphatase 44 U/L (46-116) Total Protein 6.2 g/dL (6.4-8.2) Albumin 3.0 g/dL (3.4-5.0) Albumin/Globulin Ratio 0.9 (1.0-1.7) Test 09/27/21 07:11 Glucose (Fingerstick) 132 mg/dL (70-99) Medications Active Scripts Medications Dose Route/Sig Max Daily Dose Days Date Category Carvedilol 25 Mg Tablet 25 Mg PO BIDWMEALS 09/24/21 Reported B Complex (Vitamin B Complex) 1 Each Tablet 1 Tab PO DAILY 30 09/24/21 Reported Tramadol Hcl 50 Mg Tablet 50 Mg PO BID PRN 09/24/21 Reported Renal Caps Softgel (Folic Acid/Vitamin B Comp W-C) 1 Mg Capsule 1 Cap PO DAILY 30 09/24/21 Reported Omeprazole 20 Mg Capsule.dr 1 Cap PO DAILY 09/24/21 Reported Melatonin 3 Mg Tab.rapdis 1 Tab PO QHS 30 09/24/21 Reported Meclizine Hcl 12.5 Mg Tablet 1 Tab PO BID 09/24/21 Reported Levetiracetam 500 Mg Tab.er.24h 500 Mg PO DAILY 09/24/21 Reported Furosemide 40 Mg Tablet 1 Tab PO DAILY 09/24/21 Reported Fish Oil 1,000 mg Softgel ([place]-3/Dha/Epa/Fish Oil) 1,000 Mg Capsule 1,000 Mg PO BID 09/24/21 Reported Vitamin D2 (Ergocalciferol (Vitamin D2)) 1,250 Mcg Capsule 1,250 Mcg PO WEEKLY 09/24/21 Reported Docusate Sodium 100 Mg Capsule 1 Cap PO BID 7 09/24/21 Reported Calcium Acetate 667 Mg Tablet 3 Tab PO TID 30 09/24/21 Reported Atorvastatin Calcium 80 Mg Tablet 80 Mg PO QHS 09/24/21 Reported Levetiracetam 500 Mg Tablet 63 Mg PO QHS 08/16/17 Reported Pravastatin Sodium 40 Mg Tablet 1 Tab PO QHS 08/16/17 Reported Zoloft (Sertraline Hcl) 100 Mg Tablet 1 Tab PO DAILY 08/16/17 Reported Tylenol (Acetaminophen) 325 Mg Tablet 650 Mg PO Q8HRS PRN 08/16/17 Reported Gabapentin (Gabapentin) 400 Mg Capsule 400 Mg PO BID 08/16/17 Reported Vitamin D2 (Ergocalciferol (Vitamin D2)) 50,000 Unit Capsule 1 Cap PO WEEKLY 08/16/17 Reported Ranitidine Hcl 150 Mg Tablet 150 Mg PO DAILY 08/16/17 Reported Lisinopril 2.5 Mg Tablet 1 Tab PO DAILY 08/16/17 Reported Tramadol Hcl 50 Mg Tablet 100 Mg PO BID PRN 08/16/17 Reported Impression . IMPRESSION: 1. Respiratory distress secondary to acute exacerbation of chronic obstructive pulmonary disease and metabolic acidosis. 2. Severe metabolic acidosis related to end-stage renal disease, the patient refuses dialysis. Agreed to hemodialysis started 09/27 3. Clinical symptoms and signs of obstructive sleep apnea. 4. Suspect secondary pulmonary hypertension. 5. Abnormal x-ray revealing some chronic changes compatible with chronic pleural effusion and cardiomegaly. 6. Acute on chronic diastolic heart failure. 7. Hypertension. 8. Morbid obesity. 9. Chronic obstructive pulmonary disease, unknown FEV1. 10. Tobacco dependence, in remission. DISCUSSION: I had a candid discussion with the patient. I recommended that he utilize BiPAP. He declined. I have written an order for BiPAP with low pressures. We will attempt a BiPAP this evening. I promised the patient that if he is unable to wear the BiPAP, we will discontinue it. He does require an outpatient polysomnogram. With that being said, if he does not agree to hemodialysis, he surely will do poorly. Plan . Updated 09/27 Negative fluid balance per wood science professor Continue current support As needed BiPAP JINA OCAMPO MD September 27, 2021 09:07
--- NOTE | 2021-09-27 10:20 | PDOC ---
DATE OF SERVICE DATE: 09/27/21 TIME: 10:20 SUBJECTIVE ROS No complaints on dialysis. 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 moist/pink Lungs: Other (diminished throughout, tachypenic) Abdomen: Soft, No tenderness, Other (truncal obesity) Extremities: No cyanosis, No edema Skin: No breakdown, No significant lesion Neuro: Normal speech, Sensation intact Psych/Mental Status: Mental status NL, Other (anxious) DIAGNOSIS/ASSESSMENT Assessment & Plan ESRD- Seen on dialysis, tolerating well. Continue as ordered. [place] MCNULTY . No dialysis for past 2 months as he got angry after [facility] CAD s/p CABG, Cardiomyopathy s/p AICD placement Acute on chronic systolic heart failure Suspect COPD with past tobacco abuse Malignant Hypertension Hx of CVA COMMENT/RELEVANT DATA Meds Current Medications Medications (Trade) Dose Ordered Sig/René Start Time Stop Time Status Last Admin Dose Admin Acetaminophen (Tylenol) 650 mg PRN Q6HRS PRN 09/25/21 20:15 Acetaminophen/ Hydrocodone Bitart (Lortab 5/325) 1 tab PRN Q4HRS PRN 09/24/21 08:15 Al Hydroxide/Mg Hydroxide (Mylanta Plus Xs) 30 ml PRN Q3HRS PRN 09/24/21 08:15 Albuterol/ Ipratropium (Duoneb) 6 ml 1X ONCE 09/24/21 02:30 09/24/21 02:31 DC 09/24/21 03:09 6 ML Amlodipine Besylate (Norvasc) 10 mg 1X ONCE 09/24/21 14:45 09/24/21 14:52 DC 09/24/21 17:53 10 MG Aspirin (Ecotrin) 81 mg [id number] 09/25/21 08:00 09/26/21 09:23 81 MG Atorvastatin Calcium (Lipitor) 40 mg QHS 09/24/21 21:00 09/26/21 20:42 40 MG Calcium Carbonate/ Glycine (Tums) 500 mg PRN Q3HRS PRN 09/24/21 08:15 09/27/21 03:06 500 MG Dextrose (Dextrose 50%-Water Syringe) 12.5 gm PRN Q15MIN PRN 09/26/21 12:45 Diphenhydramine HCl (Benadryl) 25 mg 1X ONCE 09/25/21 07:00 09/25/21 07:01 DC 09/25/21 06:38 25 MG Furosemide (Lasix) 40 mg [id number] 09/24/21 14:00 09/26/21 14:38 40 MG Heparin Sodium (Porcine) (Heparin Sodium) 5,000 unit Q8HRS 09/24/21 14:00 09/27/21 06:03 5,000 UNIT Hydralazine HCl (Apresoline Inj) 10 mg PRN Q4HRS PRN 09/24/21 09:45 09/24/21 20:03 10 MG Hydralazine HCl (Apresoline) 100 mg TID 09/26/21 14:00 09/26/21 20:43 100 MG Info (PHARMACY MONITORING -- do not chart) 1 each PRN DAILY PRN 09/27/21 08:15 Insulin Human Lispro (HumaLOG) 10 units 1X ONCE 09/26/21 17:15 09/26/21 17:34 DC 09/26/21 17:38 10 UNITS Isosorbide Mononitrate (Imdur) 30 mg DAILY 09/25/21 09:00 09/26/21 09:32 30 MG Labetalol HCl (Normodyne Iv Push) 20 mg PRN Q2HR PRN 09/24/21 14:00 09/25/21 11:46 20 MG Lisinopril (Prinivil) 2.5 mg ONCE ONCE 09/24/21 21:30 09/24/21 21:31 DC 09/24/21 22:18 2.5 MG Lorazepam (Ativan Inj) 2 mg 1X ONCE 09/24/21 04:00 09/24/21 04:01 DC 09/24/21 04:03 2 MG Magnesium Hydroxide (Milk Of Magnesia) 2,400 mg PRN Q12HR PRN 09/24/21 08:15 Methylprednisolone Sodium Succinate (SOLU-Medrol 40MG VIAL) 62.5 mg DAILY 09/24/21 13:15 09/26/21 09:23 62.5 MG Methylprednisolone Sodium Succinate (SOLU-Medrol 125MG VIAL) 125 mg 1X ONCE 09/25/21 07:00 09/25/21 07:01 DC 09/25/21 06:38 125 MG Morphine Sulfate (Morphine Sulfate) 2 mg PRN Q1HR PRN 09/24/21 08:15 Ondansetron HCl (Zofran) 4 mg PRN Q6HRS PRN 09/24/21 08:15 09/25/21 01:55 4 MG Polyethylene Glycol (miraLAX PACKET) 17 gm PRN DAILY PRN 09/26/21 01:15 09/26/21 09:22 17 GM Sodium Bicarbonate 150 meq/Sterile Water 1,150 ml @ 125 mls/hr Q9H12M 09/24/21 05:00 09/24/21 11:46 DC 09/24/21 05:28 125 MLS/HR Sodium Bicarbonate (Sodium Bicarbonate) 650 mg TID 09/24/21 14:00 09/26/21 20:43 650 MG Sodium Chloride 1,000 ml @ 400 mls/hr Q2H30M PRN 09/27/21 08:15 09/27/21 20:14 Zolpidem Tartrate (Ambien) 5 mg PRN QHS PRN 09/24/21 08:15 09/24/21 22:29 5 MG Lab Laboratory Tests Test 09/26/21 11:16 09/26/21 16:30 09/26/21 20:54 09/27/21 03:20 Glucose (Fingerstick) 216 mg/dL (70-99) 375 mg/dL (70-99) 228 mg/dL (70-99) Sodium Level 140 mmol/L (136-145) Potassium Level 4.5 mmol/L (3.5-5.1) Chloride Level 101 mmol/L (98-107) Carbon Dioxide Level 23 mmol/L (21-32) Anion Gap 16 (6-14) Blood Urea Nitrogen 92 mg/dL (8-26) Creatinine 9.2 mg/dL (0.7-1.3) Estimated GFR (Cockcroft-Gault) 5.8 BUN/Creatinine Ratio 10 (6-20) Glucose Level 156 mg/dL (70-99) Calcium Level 7.2 mg/dL (8.5-10.1) Total Bilirubin 0.3 mg/dL (0.2-1.0) Aspartate Amino Transf (AST/SGOT) 22 U/L (15-37) Alanine Aminotransferase (ALT/SGPT) 23 U/L (16-63) Alkaline Phosphatase 44 U/L (46-116) Total Protein 6.2 g/dL (6.4-8.2) Albumin 3.0 g/dL (3.4-5.0) Albumin/Globulin Ratio 0.9 (1.0-1.7) Test 09/27/21 07:11 Glucose (Fingerstick) 132 mg/dL (70-99) Results All relevant outside records, renal labs, imaging studies, telemetry/EKG's were reviewed. Justicifation of Admission Dx: Justifications for Admission: Justification of Admission Dx: N/A ADRIAN URRUTIA MD September 27, 2021 10:20
--- NOTE | 2021-09-27 11:28 | PDOC ---
JUSTICE RODRIGUEZ FLEET DRIVER 09/27/21 1128: CARDIO Progress Notes Date and Time Date of Service 09/27/21 Time of Evaluation 1120 Subjective Subjective: No Chest Pain, No shortness of breath, No Palpitations, Other (seen on HD) Vitals Vitals Vital Signs Date Time Temp Pulse Resp B/P (MAP) Pulse Ox O2 Delivery O2 Flow Rate FiO2 09/27/21 08:00 Room Air 2.0 09/27/21 07:00 99.2 85 18 195/88 (123) 96 99.2 Weight Weight [ ] Input and Output Intake and Output Intake and Output 09/27/21 07:00 Intake Total 2150 ml Output Total 400 ml Balance 1750 ml Intake Oral 2150 ml Output Urine Total 400 ml # Voids 4 Laboratory Labs Laboratory Tests Test 09/26/21 16:30 09/26/21 20:54 09/27/21 03:20 09/27/21 07:11 Glucose (Fingerstick) 375 mg/dL (70-99) 228 mg/dL (70-99) 132 mg/dL (70-99) Sodium Level 140 mmol/L (136-145) Potassium Level 4.5 mmol/L (3.5-5.1) Chloride Level 101 mmol/L (98-107) Carbon Dioxide Level 23 mmol/L (21-32) Anion Gap 16 (6-14) Blood Urea Nitrogen 92 mg/dL (8-26) Creatinine 9.2 mg/dL (0.7-1.3) Estimated GFR (Cockcroft-Gault) 5.8 BUN/Creatinine Ratio 10 (6-20) Glucose Level 156 mg/dL (70-99) Calcium Level 7.2 mg/dL (8.5-10.1) Total Bilirubin 0.3 mg/dL (0.2-1.0) Aspartate Amino Transf (AST/SGOT) 22 U/L (15-37) Alanine Aminotransferase (ALT/SGPT) 23 U/L (16-63) Alkaline Phosphatase 44 U/L (46-116) Total Protein 6.2 g/dL (6.4-8.2) Albumin 3.0 g/dL (3.4-5.0) Albumin/Globulin Ratio 0.9 (1.0-1.7) Physical Exam HEENT: Neck Supple W Full Motion Chest: Symmetric LUNGS: Other (diminished bases) Heart: RRR Abdomen: Soft N/T Extremities: No Edema Neurology: alert, oriented, follow commands Assessment Assessment 1. Acute on chronic systolic heart failure; improved s/p fluid offloading 2. ESRD: last HD 3 months ago, has been refusing dialysis. as per renal 3. Suspect COPD with past tobacco abuse 4. Malignant hypertension; labile. increase Imdur. resume BB therapy 5. CAD: past CABG reported 3 yrs ago. Stable and chest pain-free 6. Cardiomyopathy; 2D echo showed LVEF 20 to 25% 7. AICD in situ: ([employer]) follows with [place] [facility] 8. DM2: per PCP 9. HLP 10. Hx of CVA 11. Hx of seizure: noted with Keppra on regimen 12. Mild hyperkalemia; resolved Justicifation of Admission Dx: Justifications for Admission: Justification of Admission Dx: Yes Comments: Acute on chronic systolic CHF ESRD on HD, hyperkalemia DIPESH REECE MD 09/27/21 1850: CARDIO Progress Notes Assessment Assessment Patient seen and examined. Agree with SPECIAL DUTY NURSE's assessment and plan. Acute on chr systolic HF better compensated CAD clinically stable Continue fluid removal with HD per nephrology team JUSTICE RODRIGUEZ APRN September 27, 2021 11:28 DIPESH REECE MD September 27, 2021 18:50
[2021-09-27] MEDS: methylPREDNISolone SOD SUCC PF 40 MG/ML VIAL. IV SCH (13:08)
[2021-09-27] MEDS: ASPIRIN ENTERIC COATED 81 MG TABLET.DR. PO SCH (13:13)
[2021-09-27] MEDS: ISOSORBIDE MONONITRATE ER 30 MG TAB.ER.24H PO SCH (13:13)
[2021-09-27 14:35] VITALS: BP 154/68
[2021-09-27] MEDS ORDERED: ISOSORBIDE MONONITRATE ER 30 MG TAB.ER.24H PO ONE (16:00)
[2021-09-27] MEDS: CARVEDILOL 12.5 MG TABLET. PO SCH (17:04)
[2021-09-27] MEDS ORDERED: GABAPENTIN 300 MG CAPSULE. PO SCH (18:30)
[2021-09-27] MEDS: levETIRAcetam 500 MG TABLET PO SCH (18:36)
[2021-09-27 19:06] VITALS: BP 106/54
[2021-09-27] MEDS ORDERED: levETIRAcetam 500 MG TABLET PO SCH (21:00)
[2021-09-27] MEDS: ATORVASTATIN CALCIUM 40 MG TABLET. PO SCH (21:55)
[2021-09-27 22:18] VITALS: BP 105/56
[2021-09-28 02:47] VITALS: BP 155/64
[2021-09-28] MEDS: HEPARIN for SUB-Q USE 5,000 UNIT/ML VIAL. SQ SCH ×2 (06:05→12:24)
[2021-09-28 06:56] LABS: CALCIUM 7.6 mg/dL (8.5-10.1); CREATININE 6.3 mg/dL (0.7-1.3)
[2021-09-28 07:00] VITALS: BP 162/75
[2021-09-28] MEDS ORDERED: OLOP2.5D12 EACHEYE (07:34)
[2021-09-28] MEDS ORDERED: ATOR80TA72 PO (07:34)
[2021-09-28] MEDS ORDERED: SENN-213 PO (07:34)
--- NOTE | 2021-09-28 08:10 | PDOC ---
[facility] PROGRESS NOTE Date of Service DOS: DATE: 09/28/21 TIME: 08:08 Chief Complaint Chief Complaint Acute on chronic systolic heart failure ESRD: last HD 3 months ago, has been refusing dialysis ? COPD with past tobacco abuse Hypertensive urgency CAD s/p CABG Ischemic Cardiomyopathy s/p AICD medtronic [facility] DM2 - basal bolus plus insulin HLD - statin H/o CVA H/o seizures Hyperkalemia FEN - Renal ADA PPX - heparin CODE - DNR/DNI Dispo - inpatient History of Present Illness History of Present Illness Mr Warren is a 66 yo male w/ PMHx CAD s/p CABG, cardiomyopathy s/p AICD placement, ESRD who comes into ED c/o worsening shortness of breath and weakness. Admitted with cardiology and nephrology consultation. As well as pulmonology consultation initially offered BiPAP due to his respiratory distress he refused this. He also had noted historically he was being worked up for renal transplant but was told this is previously known option and that is why he had recently discontinued dialysis care. 09/25: Dialysis tolerated. EF on echocardiogram 20 to 25%. 09/26: Weak, still in respiratory distress 09/27: Seen bedside feeling weak. Plans for dialysis today, BUN 92. Need to ensure he has dialysis clinic follow-up.\ 09/28: Seen bedside able to get up on his own. Glucose 100s. He is amenable to reinitiating dialysis, is hepatitis B surface antibody immune. Vitals/I&O Vitals/I&O: Vital Signs Date Time Temp Pulse Resp B/P (MAP) Pulse Ox O2 Delivery O2 Flow Rate FiO2 09/28/21 07:00 97.3 77 20 162/75 (104) 97 Room Air 97.3 09/27/21 22:18 2.0 I & O 09/27/21 09/27/21 09/28/21 15:00 23:00 07:00 Intake Total 180 ml 350 ml 500 ml Output Total 350 ml 300 ml Balance 180 ml 0 ml 200 ml Physical Exam General: Alert, Oriented X3, Cooperative Heart: Regular rate, Normal S1, Normal S2, No murmurs, Gallops Lungs: Crackles Abdomen: Normal bowel sounds, Soft, No tenderness, No hepatosplenomegaly, No masses Extremities: Other (ANASARCA) Skin: No breakdown, No significant lesion Labs Labs: Laboratory Tests Test 09/27/21 16:48 09/27/21 20:31 09/28/21 05:20 09/28/21 07:33 Glucose (Fingerstick) 339 mg/dL (70-99) 377 mg/dL (70-99) 160 mg/dL (70-99) Sodium Level 139 mmol/L (136-145) Potassium Level 5.0 mmol/L (3.5-5.1) Chloride Level 100 mmol/L (98-107) Carbon Dioxide Level 26 mmol/L (21-32) Anion Gap 13 (6-14) Blood Urea Nitrogen 61 mg/dL (8-26) Creatinine 6.3 mg/dL (0.7-1.3) Estimated GFR (Cockcroft-Gault) 9.0 Glucose Level 215 mg/dL (70-99) Calcium Level 7.6 mg/dL (8.5-10.1) Assessment and Plan Assessmemt and Plan Problems Medical Problems: (1) CHF exacerbation Status: Acute (2) COPD exacerbation Status: Acute (3) Metabolic acidosis Status: Acute (4) Orthopnea Status: Acute Comment Review of Relevant I have reviewed the following items basil (where applicable) has been applied. Medications: Current Medications Medications (Trade) Dose Ordered Sig/René Route PRN Reason Start Time Stop Time Status Last Admin Dose Admin Isosorbide Mononitrate (Imdur) 30 mg 1X ONCE PO 09/27/21 16:00 09/27/21 16:01 DC 09/27/21 17:04 Carvedilol (Coreg) 25 mg BIDWMEALS PO 09/27/21 17:00 09/27/21 17:04 Levetiracetam (Keppra) 500 mg DAILY16 PO 09/27/21 18:30 09/27/21 18:36 Justifications for Admission Other Justification EVIN CORMIER MD September 28, 2021 08:10
[2021-09-28] MEDS: CARVEDILOL 12.5 MG TABLET. PO SCH (08:15)
[2021-09-28] MEDS: ASPIRIN ENTERIC COATED 81 MG TABLET.DR. PO SCH (08:15)
[2021-09-28] MEDS: SODIUM BICARBONATE 650 MG TABLET. PO SCH ×2 (08:15→13:20)
[2021-09-28] MEDS: methylPREDNISolone SOD SUCC PF 40 MG/ML VIAL. IV SCH (08:16)
[2021-09-28] MEDS: FUROSEMIDE 40 MG/4 ML VIAL. IVP SCH ×2 (08:17→13:22)
[2021-09-28] MEDS: INSULIN LISPRO 300 UNITS/3 ML VIAL. SQ SCH ×2 (08:18→11:29)
[2021-09-28] MEDS ORDERED: ISOSORBIDE MONONITRATE ER 30 MG TAB.ER.24H PO SCH (09:00)
--- NOTE | 2021-09-28 10:03 | PDOC ---
PULMONARY PROGRESS NOTES DATE: 09/28/21 TIME: 10:01 Subjective Patient feels better after dialysis, less short of air Vitals Vital Signs Date Time Temp Pulse Resp B/P (MAP) Pulse Ox O2 Delivery O2 Flow Rate FiO2 09/28/21 08:16 77 162/75 09/28/21 08:00 Room Air 09/28/21 07:00 97.3 20 97 97.3 09/27/21 22:18 2.0 ROS: No Nausea, No Chest Pain, No Abdominal Pain, No Increase Cough General: Alert Lungs: Crackles Cardiovascular: S1, S2 Abdomen: Soft Neuro Exam: Alert Extremities: No Edema, Other (Edema) Skin: Warm Labs Laboratory Tests Test 09/26/21 11:16 09/26/21 16:30 09/26/21 20:54 09/27/21 03:20 Glucose (Fingerstick) 216 mg/dL (70-99) 375 mg/dL (70-99) 228 mg/dL (70-99) Sodium Level 140 mmol/L (136-145) Potassium Level 4.5 mmol/L (3.5-5.1) Chloride Level 101 mmol/L (98-107) Carbon Dioxide Level 23 mmol/L (21-32) Anion Gap 16 (6-14) Blood Urea Nitrogen 92 mg/dL (8-26) Creatinine 9.2 mg/dL (0.7-1.3) Estimated GFR (Cockcroft-Gault) 5.8 BUN/Creatinine Ratio 10 (6-20) Glucose Level 156 mg/dL (70-99) Calcium Level 7.2 mg/dL (8.5-10.1) Total Bilirubin 0.3 mg/dL (0.2-1.0) Aspartate Amino Transf (AST/SGOT) 22 U/L (15-37) Alanine Aminotransferase (ALT/SGPT) 23 U/L (16-63) Alkaline Phosphatase 44 U/L (46-116) Total Protein 6.2 g/dL (6.4-8.2) Albumin 3.0 g/dL (3.4-5.0) Albumin/Globulin Ratio 0.9 (1.0-1.7) Test 09/27/21 07:11 09/27/21 16:48 09/27/21 20:31 09/28/21 05:20 Glucose (Fingerstick) 132 mg/dL (70-99) 339 mg/dL (70-99) 377 mg/dL (70-99) Sodium Level 139 mmol/L (136-145) Potassium Level 5.0 mmol/L (3.5-5.1) Chloride Level 100 mmol/L (98-107) Carbon Dioxide Level 26 mmol/L (21-32) Anion Gap 13 (6-14) Blood Urea Nitrogen 61 mg/dL (8-26) Creatinine 6.3 mg/dL (0.7-1.3) Estimated GFR (Cockcroft-Gault) 9.0 Glucose Level 215 mg/dL (70-99) Calcium Level 7.6 mg/dL (8.5-10.1) Test 09/28/21 07:33 Glucose (Fingerstick) 160 mg/dL (70-99) Laboratory Tests Test 09/27/21 16:48 09/27/21 20:31 09/28/21 05:20 09/28/21 07:33 Glucose (Fingerstick) 339 mg/dL (70-99) 377 mg/dL (70-99) 160 mg/dL (70-99) Sodium Level 139 mmol/L (136-145) Potassium Level 5.0 mmol/L (3.5-5.1) Chloride Level 100 mmol/L (98-107) Carbon Dioxide Level 26 mmol/L (21-32) Anion Gap 13 (6-14) Blood Urea Nitrogen 61 mg/dL (8-26) Creatinine 6.3 mg/dL (0.7-1.3) Estimated GFR (Cockcroft-Gault) 9.0 Glucose Level 215 mg/dL (70-99) Calcium Level 7.6 mg/dL (8.5-10.1) Medications Active Scripts Medications Dose Route/Sig Max Daily Dose Days Date Category Carvedilol 25 Mg Tablet 25 Mg PO BIDWMEALS 09/24/21 Reported B Complex (Vitamin B Complex) 1 Each Tablet 1 Tab PO DAILY 30 09/24/21 Reported Tramadol Hcl 50 Mg Tablet 50 Mg PO BID PRN 09/24/21 Reported Renal Caps Softgel (Folic Acid/Vitamin B Comp W-C) 1 Mg Capsule 1 Cap PO DAILY 30 09/24/21 Reported Omeprazole 20 Mg Capsule.dr 1 Cap PO DAILY 09/24/21 Reported Melatonin 3 Mg Tab.rapdis 1 Tab PO QHS 30 09/24/21 Reported Meclizine Hcl 12.5 Mg Tablet 1 Tab PO BID 09/24/21 Reported Levetiracetam 500 Mg Tab.er.24h 500 Mg PO DAILY 09/24/21 Reported Furosemide 40 Mg Tablet 1 Tab PO DAILY 09/24/21 Reported Fish Oil 1,000 mg Softgel ([place]-3/Dha/Epa/Fish Oil) 1,000 Mg Capsule 1,000 Mg PO BID 09/24/21 Reported Vitamin D2 (Ergocalciferol (Vitamin D2)) 1,250 Mcg Capsule 1,250 Mcg PO WEEKLY 09/24/21 Reported Docusate Sodium 100 Mg Capsule 1 Cap PO BID 7 09/24/21 Reported Calcium Acetate 667 Mg Tablet 3 Tab PO TID 30 09/24/21 Reported Atorvastatin Calcium 80 Mg Tablet 80 Mg PO QHS 09/24/21 Reported Levetiracetam 500 Mg Tablet 63 Mg PO QHS 08/16/17 Reported Pravastatin Sodium 40 Mg Tablet 1 Tab PO QHS 08/16/17 Reported Zoloft (Sertraline Hcl) 100 Mg Tablet 1 Tab PO DAILY 08/16/17 Reported Tylenol (Acetaminophen) 325 Mg Tablet 650 Mg PO Q8HRS PRN 08/16/17 Reported Gabapentin (Gabapentin) 400 Mg Capsule 400 Mg PO BID 08/16/17 Reported Vitamin D2 (Ergocalciferol (Vitamin D2)) 50,000 Unit Capsule 1 Cap PO WEEKLY 08/16/17 Reported Ranitidine Hcl 150 Mg Tablet 150 Mg PO DAILY 08/16/17 Reported Lisinopril 2.5 Mg Tablet 1 Tab PO DAILY 08/16/17 Reported Tramadol Hcl 50 Mg Tablet 100 Mg PO BID PRN 08/16/17 Reported Impression . IMPRESSION: 1. Respiratory distress secondary to acute exacerbation of chronic obstructive pulmonary disease and severe metabolic acidosis. Clinically improved. 2. Severe metabolic acidosis related to end-stage renal disease, Agreed to hemodialysis started 09/27. Clinically better 3. Clinical symptoms and signs of obstructive sleep apnea. 4. Suspect secondary pulmonary hypertension. 5. Abnormal x-ray revealing some chronic changes compatible with chronic pleural effusion and cardiomegaly. 6. Acute on chronic diastolic heart failure. 7. Hypertension. 8. Morbid obesity. 9. Chronic obstructive pulmonary disease, unknown FEV1. Smoked for 40+ years. 10. Tobacco dependence, in remission. Plan . Patient is clinically better. Is status post hemodialysis. Renal function improved. Metabolic acidosis significantly improved. Negative fluid balance per capacity planning engineer Continue current support As needed BiPAP PFTs as an outpatient. PACO ZHANG MD September 28, 2021 10:03
[2021-09-28 10:37] VITALS: BP 126/69
[2021-09-28] MEDS ORDERED: ISOS30TA68 PO (10:40)
[2021-09-28] MEDS ORDERED: ASPI-886 PO (10:40)
[2021-09-28] MEDS ORDERED: HYDR-2869 PO (10:40)
--- NOTE | 2021-09-28 10:53 | NUR ---
SS following for discharge planning. SS reviewed pt chart and discussed with pt RN. Pt is from home and is currently on room air. Pulmonology, Cardiology, and Nephrology following. Pt currently requiring oxygen at two liters nasal canula PRN. Pt on IV Solu-Medrol and IV Lasix. Pt agreeable to dialysis at this time. Pt was being seen at [facility], ; fax [phone], but has not been to dialysis for approximately three months. Pt no longer has chair time. Isabelle at [facility] reported that they could accept him back but pt needs new referral sent to [facility]. Referral sent to [facility], ; fax [phone]. COVID19 rapid test and Hep B Total Core pending for referral. SS will continue to follow for discharge planning. Addendum: 09/28/21 at 1253 by KEV CASE SS COVID19 and Hep B Total Core resulted and sent to [facility].
--- NOTE | 2021-09-28 11:48 | PDOC ---
NEREIDA CARLIN MEDICATION NURSE 09/28/21 1148: CARDIO Progress Notes Date and Time Date of Service 09/28/2021 Time of Evaluation 0950 Subjective Subjective: No Chest Pain, No shortness of breath, No Palpitations Vitals Vitals Vital Signs Date Time Temp Pulse Resp B/P (MAP) Pulse Ox O2 Delivery O2 Flow Rate FiO2 09/28/21 10:37 97.9 74 20 126/69 (88) 95 Room Air 97.9 09/27/21 22:18 2.0 Weight Weight [ ] Input and Output Intake and Output Intake and Output 09/28/21 07:00 Intake Total 1030 ml Output Total 650 ml Balance 380 ml Intake Oral 1030 ml Output Urine Total 650 ml Laboratory Labs Laboratory Tests Test 09/27/21 16:48 09/27/21 20:31 09/28/21 05:20 09/28/21 07:33 Glucose (Fingerstick) 339 mg/dL (70-99) 377 mg/dL (70-99) 160 mg/dL (70-99) Sodium Level 139 mmol/L (136-145) Potassium Level 5.0 mmol/L (3.5-5.1) Chloride Level 100 mmol/L (98-107) Carbon Dioxide Level 26 mmol/L (21-32) Anion Gap 13 (6-14) Blood Urea Nitrogen 61 mg/dL (8-26) Creatinine 6.3 mg/dL (0.7-1.3) Estimated GFR (Cockcroft-Gault) 9.0 Glucose Level 215 mg/dL (70-99) Calcium Level 7.6 mg/dL (8.5-10.1) Test 09/28/21 10:54 Glucose (Fingerstick) 241 mg/dL (70-99) Physical Exam HEENT: Neck Supple W Full Motion Chest: Symmetric LUNGS: Other (diminished bases) Heart: RRR (SR) Abdomen: Soft N/T Extremities: No Edema Neurology: alert, oriented, follow commands Assessment Assessment 1. Acute on chronic systolic heart failure; compensated 2. ESRD: last HD 3 months ago, has been refusing dialysis. Has agreed with HD 3. Suspect COPD with past tobacco abuse 4. Malignant hypertension; labile. increase Imdur. resume BB therapy 5. CAD: past CABG reported 3 yrs ago. Stable and chest pain-free 6. Cardiomyopathy; 2D echo showed LVEF 20 to 25% Continue with HF optimization. [facility] 7. AICD in situ: (Medtronic) 8. DM2: per PCP 9. HLP 10. Hx of CVA 11. Hx of seizure: noted with Keppra on regimen 12. Mild hyperkalemia; resolved Justicifation of Admission Dx: Justifications for Admission: Justification of Admission Dx: Yes DIPESH REECE MD 09/28/21 3406: CARDIO Progress Notes Assessment Assessment Patient seen and examined. Agree with DROP WORKER's assessment and plan. Acute on chr systolic HF better compensated CAD clinically stable Continue fluid removal with HD per nephrology team NEREIDA CARLIN APRN September 28, 2021 11:48 DIPESH REECE MD September 28, 2021 18:46
--- NOTE | 2021-09-28 12:09 | PDOC ---
DATE OF SERVICE DATE: 09/28/21 TIME: 12:05 SUBJECTIVE ROS No complaints . Denies SOB OBJECTIVE Vital Signs Vital Signs Date Time Temp Pulse Resp B/P (MAP) Pulse Ox O2 Delivery O2 Flow Rate FiO2 09/28/21 10:37 97.9 74 20 126/69 (88) 95 Room Air 97.9 09/27/21 22:18 2.0 I & 0 Intake and Output 09/28/21 07:00 Intake Total 1030 ml Output Total 650 ml Balance 380 ml Intake Oral 1030 ml Output Urine Total 650 ml PHYSICAL EXAM Physical Exam General: Alert, Oriented X3, Cooperative, moderate distress HEENT: Atraumatic, Mucous membr. moist/pink Lungs: Other (diminished throughout, tachypenic) Abdomen: Soft, No tenderness, Other (truncal obesity) Extremities: No cyanosis, No edema Skin: No breakdown, No significant lesion Neuro: Normal speech, Sensation intact Psych/Mental Status: Mental status NL, Other (anxious) DIAGNOSIS/ASSESSMENT Assessment & Plan ESRD- No indication for dialysis today . He doesnt want to quit dialysis - he stopped for past 2 months as " [facility] got angry after [facility] " OP dialysis at [facility] - was on MWF schedule Anemia- Hgb trending down . Check Fe studies. Could be 2./2 not dialyzing for past 2-3 months . CAD s/p CABG, Cardiomyopathy s/p AICD placement On IV Lasix,Card managing Acute on chronic systolic heart failure Suspect COPD with past tobacco abuse Malignant Hypertension Hx of CVA COMMENT/RELEVANT DATA Meds Current Medications Medications (Trade) Dose Ordered Sig/René Start Time Stop Time Status Last Admin Dose Admin Acetaminophen (Tylenol) 650 mg PRN Q6HRS PRN 09/25/21 20:15 Acetaminophen/ Hydrocodone Bitart (Lortab 5/325) 1 tab PRN Q4HRS PRN 09/24/21 08:15 Al Hydroxide/Mg Hydroxide (Mylanta Plus Xs) 30 ml PRN Q3HRS PRN 09/24/21 08:15 Albuterol/ Ipratropium (Duoneb) 6 ml 1X ONCE 09/24/21 02:30 09/24/21 02:31 DC 09/24/21 03:09 6 ML Amlodipine Besylate (Norvasc) 10 mg 1X ONCE 09/24/21 14:45 09/24/21 14:52 DC 09/24/21 17:53 10 MG Aspirin (Ecotrin) 81 mg DAILYWBKFT 09/25/21 08:00 09/28/21 08:15 81 MG Atorvastatin Calcium (Lipitor) 40 mg QHS 09/24/21 21:00 09/27/21 21:55 40 MG Calcium Carbonate/ Glycine (Tums) 500 mg PRN Q3HRS PRN 09/24/21 08:15 09/27/21 03:06 500 MG Carvedilol (Coreg) 25 mg BIDWMEALS 09/27/21 17:00 09/28/21 08:15 25 MG Dextrose (Dextrose 50%-Water Syringe) 12.5 gm PRN Q15MIN PRN 09/26/21 12:45 Diphenhydramine HCl (Benadryl) 25 mg 1X ONCE 09/25/21 07:00 09/25/21 07:01 DC 09/25/21 06:38 25 MG Furosemide (Lasix) 40 mg BID92 09/24/21 14:00 09/28/21 08:17 40 MG Gabapentin (Neurontin) 300 mg DAILY16 09/27/21 18:30 09/27/21 18:32 DC Heparin Sodium (Porcine) (Heparin Sodium) 5,000 unit Q8HRS 09/24/21 14:00 09/28/21 06:05 5,000 UNIT Hydralazine HCl (Apresoline Inj) 10 mg PRN Q4HRS PRN 09/24/21 09:45 09/24/21 20:03 10 MG Hydralazine HCl (Apresoline) 100 mg TID 09/26/21 14:00 09/28/21 08:16 100 MG Info (PHARMACY MONITORING -- do not chart) 1 each PRN DAILY PRN 09/27/21 08:15 Insulin Human Lispro (HumaLOG) 10 units 1X ONCE 09/26/21 17:15 09/26/21 17:34 DC 09/26/21 17:38 10 UNITS Isosorbide Mononitrate (Imdur) 30 mg 1X ONCE 09/27/21 16:00 09/27/21 16:01 DC 09/27/21 17:04 30 MG Labetalol HCl (Normodyne Iv Push) 20 mg PRN Q2HR PRN 09/24/21 14:00 09/25/21 11:46 20 MG Levetiracetam (Keppra) 500 mg DAILY16 09/27/21 18:30 09/27/21 18:36 500 MG Lisinopril (Prinivil) 2.5 mg ONCE ONCE 09/24/21 21:30 09/24/21 21:31 DC 09/24/21 22:18 2.5 MG Lorazepam (Ativan Inj) 2 mg 1X ONCE 09/24/21 04:00 09/24/21 04:01 DC 09/24/21 04:03 2 MG Magnesium Hydroxide (Milk Of Magnesia) 2,400 mg PRN Q12HR PRN 09/24/21 08:15 Methylprednisolone Sodium Succinate (SOLU-Medrol 40MG VIAL) 62.5 mg DAILY 09/24/21 13:15 09/28/21 08:16 62.5 MG Methylprednisolone Sodium Succinate (SOLU-Medrol 125MG VIAL) 125 mg 1X ONCE 09/25/21 07:00 09/25/21 07:01 DC 09/25/21 06:38 125 MG Morphine Sulfate (Morphine Sulfate) 2 mg PRN Q1HR PRN 09/24/21 08:15 Ondansetron HCl (Zofran) 4 mg PRN Q6HRS PRN 09/24/21 08:15 09/25/21 01:55 4 MG Polyethylene Glycol (miraLAX PACKET) 17 gm PRN DAILY PRN 09/26/21 01:15 09/26/21 09:22 17 GM Sodium Bicarbonate 150 meq/Sterile Water 1,150 ml @ 125 mls/hr Q9H12M 09/24/21 05:00 09/24/21 11:46 DC 09/24/21 05:28 125 MLS/HR Sodium Bicarbonate (Sodium Bicarbonate) 650 mg TID 09/24/21 14:00 09/28/21 08:15 650 MG Sodium Chloride 1,000 ml @ 400 mls/hr Q2H30M PRN 09/27/21 08:15 09/27/21 20:14 DC Zolpidem Tartrate (Ambien) 5 mg PRN QHS PRN 09/24/21 08:15 09/24/21 22:29 5 MG Lab Laboratory Tests Test 09/27/21 16:48 09/27/21 20:31 09/28/21 05:20 09/28/21 07:33 Glucose (Fingerstick) 339 mg/dL (70-99) 377 mg/dL (70-99) 160 mg/dL (70-99) Sodium Level 139 mmol/L (136-145) Potassium Level 5.0 mmol/L (3.5-5.1) Chloride Level 100 mmol/L (98-107) Carbon Dioxide Level 26 mmol/L (21-32) Anion Gap 13 (6-14) Blood Urea Nitrogen 61 mg/dL (8-26) Creatinine 6.3 mg/dL (0.7-1.3) Estimated GFR (Cockcroft-Gault) 9.0 Glucose Level 215 mg/dL (70-99) Calcium Level 7.6 mg/dL (8.5-10.1) Test 09/28/21 10:54 09/28/21 11:00 Glucose (Fingerstick) 241 mg/dL (70-99) SARS-CoV-2 Antigen (Rapid) Negative (NEGATIVE) Results All relevant outside records, renal labs, imaging studies, telemetry/EKG's were reviewed. Justicifation of Admission Dx: Justifications for Admission: Justification of Admission Dx: Yes ADRIAN URRUTIA MD September 28, 2021 12:09
[2021-09-28] MEDS ORDERED: EPOETIN ALFA-EPBX for ESRD 20,000 UNIT/ML VIAL. SQ ONE (12:30)
[2021-09-28] MEDS: levETIRAcetam 500 MG TABLET PO SCH (13:20)
[2021-09-28 13:21] VITALS: BP 126/69
--- NOTE | 2021-09-28 15:00 | NUR ---
Discharge Note: LILLIAN DAUGHERTY [address] Discharge instructions and discharge home medications reviewed with Patient and a copy given. All questions have been answered and understanding verbalized. The following instructions and handouts were given: isosorbide, aspirin, hydralazine Patient discharged to home with self care via wheelchair.
--- NOTE | 2021-09-28 17:21 | PDOC3 ---
Discharge Summary Visit Information Date of Admission: September 24, 2021 Date of Discharge: September 28, 2021 Admitting Diagnosis: Acute CHF exacerbation Final Diagnosis Problems Medical Problems: (1) CHF exacerbation Status: Acute (2) COPD exacerbation Status: Acute (3) Metabolic acidosis Status: Acute (4) Orthopnea Status: Acute Brief Hospital Course Allergies Allergies Coded Allergies Type Severity Reaction Last Updated Verified lisinopril Allergy Severe 09/25/21 Yes Vital Signs Vital Signs Date Time Temp Pulse Resp B/P (MAP) Pulse Ox O2 Delivery O2 Flow Rate FiO2 09/28/21 13:21 74 126/69 09/28/21 10:37 97.9 20 95 Room Air 97.9 09/27/21 22:18 2.0 Lab Results Laboratory Tests Test 09/26/21 20:54 09/27/21 03:20 09/27/21 07:11 09/27/21 16:48 Glucose (Fingerstick) 228 mg/dL (70-99) 132 mg/dL (70-99) 339 mg/dL (70-99) Sodium Level 140 mmol/L (136-145) Potassium Level 4.5 mmol/L (3.5-5.1) Chloride Level 101 mmol/L (98-107) Carbon Dioxide Level 23 mmol/L (21-32) Anion Gap 16 (6-14) Blood Urea Nitrogen 92 mg/dL (8-26) Creatinine 9.2 mg/dL (0.7-1.3) Estimated GFR (Cockcroft-Gault) 5.8 BUN/Creatinine Ratio 10 (6-20) Glucose Level 156 mg/dL (70-99) Calcium Level 7.2 mg/dL (8.5-10.1) Total Bilirubin 0.3 mg/dL (0.2-1.0) Aspartate Amino Transf (AST/SGOT) 22 U/L (15-37) Alanine Aminotransferase (ALT/SGPT) 23 U/L (16-63) Alkaline Phosphatase 44 U/L (46-116) Total Protein 6.2 g/dL (6.4-8.2) Albumin 3.0 g/dL (3.4-5.0) Albumin/Globulin Ratio 0.9 (1.0-1.7) Test 09/27/21 20:31 09/28/21 05:20 09/28/21 07:33 09/28/21 10:54 Glucose (Fingerstick) 377 mg/dL (70-99) 160 mg/dL (70-99) 241 mg/dL (70-99) Sodium Level 139 mmol/L (136-145) Potassium Level 5.0 mmol/L (3.5-5.1) Chloride Level 100 mmol/L (98-107) Carbon Dioxide Level 26 mmol/L (21-32) Anion Gap 13 (6-14) Blood Urea Nitrogen 61 mg/dL (8-26) Creatinine 6.3 mg/dL (0.7-1.3) Estimated GFR (Cockcroft-Gault) 9.0 Glucose Level 215 mg/dL (70-99) Calcium Level 7.6 mg/dL (8.5-10.1) Hepatitis B Core Total Antibody Nonreactive (Nonreactive) Test 09/28/21 11:00 SARS-CoV-2 Antigen (Rapid) Negative (NEGATIVE) Laboratory Tests Test 09/27/21 20:31 09/28/21 05:20 09/28/21 07:33 09/28/21 10:54 Glucose (Fingerstick) 377 mg/dL (70-99) 160 mg/dL (70-99) 241 mg/dL (70-99) Sodium Level 139 mmol/L (136-145) Potassium Level 5.0 mmol/L (3.5-5.1) Chloride Level 100 mmol/L (98-107) Carbon Dioxide Level 26 mmol/L (21-32) Anion Gap 13 (6-14) Blood Urea Nitrogen 61 mg/dL (8-26) Creatinine 6.3 mg/dL (0.7-1.3) Estimated GFR (Cockcroft-Gault) 9.0 Glucose Level 215 mg/dL (70-99) Calcium Level 7.6 mg/dL (8.5-10.1) Hepatitis B Core Total Antibody Nonreactive (Nonreactive) Test 09/28/21 11:00 SARS-CoV-2 Antigen (Rapid) Negative (NEGATIVE) Brief Hospital Course Mr Warren is a 66 yo male w/ PMHx CAD s/p CABG, cardiomyopathy s/p AICD placement, ESRD who comes into ED c/o worsening shortness of breath and weakness. Admitted with cardiology and nephrology consultation. As well as pulmonology consultation initially offered BiPAP due to his respiratory distress he refused this. He also had noted historically he was being worked up for renal transplant but was told this is previously known option and that is why he had recently discontinued dialysis care. 09/25: Dialysis tolerated. EF on echocardiogram 20 to 25%. 09/26: Weak, still in respiratory distress 09/27: Seen bedside feeling weak. Plans for dialysis today, BUN 92. Need to ensure he has dialysis clinic follow-up.\ 09/28: Seen bedside able to get up on his own. Glucose 100s. He is amenable to reinitiating dialysis, is hepatitis B surface antibody immune. COVID 19 negative. His dialysis chair today remains 05/07/2022. He was counseled on continuing inpatient dialysis he wishes to go outpatient will return to ER if symptoms recur started on isosorbide and hydralazine per cardiology for CHF continued on carvedilol. Cannot take RAUL or ARB due to end-stage renal disease, on aspirin and statin as well Consults: Nephrology, cardiology Problem list: Acute on chronic systolic heart failure ESRD: last HD 3 months ago, has been refusing dialysis ? COPD with past tobacco abuse Hypertensive urgency CAD s/p CABG Ischemic Cardiomyopathy s/p AICD medtronic and [facility] DM2 - basal bolus plus insulin HLD - statin H/o CVA H/o seizures Hyperkalemia Greater than 30 minutes spent on d/c home with self care. Discharge Information Condition at Discharge: Improved Follow Up: Weeks (1) Disposition/Orders: D/C to Home Scheduled Aspirin (Aspirin Ec) 81 Mg Tablet., 81 MG PO DAILYWBK for CHF for 30 Days, #30 Ref 11 Prescribed by: EVIN CORMIER MD on 09/28/21 1040 Atorvastatin Calcium (Atorvastatin Calcium) 80 Mg Tablet, 40 MG PO QHS for FOR HIGH CHOLESTEROL, (Reported) Entered as Reported by: SISI CEDILLO RN on 09/28/21 0734 Last Action: Reviewed on 09/28/21734 by SISI CEDILLO RN Calcium Acetate (Calcium Acetate) 667 Mg Tablet, 3 TAB PO TID for REPLACEMENT for 30 Days, #270 Ref 0 (Reported) Entered as Reported by: GIANNI WOO on 09/24/21 0405 Last Action: Reviewed on 09/28/21733 by SISI CEDILLO RN Carvedilol (Carvedilol) 25 Mg Tablet, 25 MG PO BIDWMEALS for CARDIAC, (Reported) Entered as Reported by: GIANNI WOO on 09/24/21404 Last Action: Reviewed on 09/28/21733 by SISI CEDILLO RN Ergocalciferol (Vitamin D2) (Vitamin D2) 1,250 Mcg Capsule, 1,250 MCG PO WEEKLY for REPLACEMENT, (Reported) Entered as Reported by: GIANNI WOO on 09/24/21404 Last Action: Reviewed on 09/28/21733 by SISI CEDILLO RN Folic Acid/Vitamin B Comp W-C (Renal Caps Softgel) 1 Mg Capsule, 1 CAP PO DAILY for VITAMIN DEFICIENCY for 30 Days, #30 Ref 0 (Reported) Entered as Reported by: GIANNI WOO on 09/24/21404 Last Action: Reviewed on 09/28/21733 by SISI CEDILLO RN Furosemide (Furosemide) 40 Mg Tablet, 1 TAB PO DAILY for FLUID RETENTION, #30 Ref 5 (Reported) Entered as Reported by: GIANNI WOO on 09/24/21404 Last Action: Reviewed on 09/28/21733 by SISI CEDILLO RN Hydralazine Hcl (Hydralazine Hcl) 50 Mg Tablet, 100 MG PO TID for CHF for 30 Days, #180 Ref 5 Prescribed by: EVIN CORMIER MD on 09/28/21 1040 Isosorbide Mononitrate (Isosorbide Mononitrate Er) 30 Mg Tab.er.24h, 60 MG PO DAILY for CHF for 30 Days, #60 Ref 5 Prescribed by: EVIN CORMIER MD on 09/28/21 1040 Levetiracetam (Levetiracetam) 500 Mg Tab.er.24h, 500 MG PO DAILY for SEIZURES, (Reported) Entered as Reported by: GIANNI WOO on 09/24/21404 Last Action: Reviewed on 09/28/21733 by SISI CEDILLO RN Melatonin (Melatonin) 3 Mg Tab.rapdis, 1 TAB PO QHS for sleep for 30 Days, #30 Ref 0 (Reported) Entered as Reported by: GIANNI WOO on 09/24/21404 Last Action: Reviewed on 09/28/21733 by SISI CEDILLO RN Olopatadine Hcl (Pataday) 2.5 Ml Drops, 1 DROP EACHEYE BID for allergies, #2.5 Ref 3 (Reported) Entered as Reported by: SISI CEDILLO RN on 09/28/21733 Last Action: Reviewed on 09/28/21734 by SISI CEDILLO RN Tolley-3/Dha/Epa/Fish Oil (Fish Oil 1,000 mg Softgel) 1,000 Mg Capsule, 1,000 MG PO BID for LOWER CHOLESTEROL, (Reported) Entered as Reported by: GIANNI WOO on 09/24/21404 Last Action: Reviewed on 09/28/21733 by SISI CEDILLO RN Omeprazole (Omeprazole) 20 Mg Capsule.dr, 1 CAP PO DAILY for ACID REDUCTION, #30 Ref 5 (Reported) Entered as Reported by: GIANNI WOO on 09/24/21404 Last Action: Reviewed on 09/28/21733 by SISI CEDILLO RN Vitamin B Complex (B Complex) 1 Each Tablet, 1 TAB PO DAILY for VITAMIN DEFICIENCY for 30 Days, #30 Ref 0 (Reported) Entered as Reported by: GIANNI WOO on 09/24/21404 Last Action: Reviewed on 09/28/21733 by SISI CEDILLO RN Scheduled PRN Acetaminophen (Tylenol) 325 Mg Tablet, 500 MG PO Q8HRS PRN for PAIN, (Reported) Entered as Reported by: Valerie Powell on 08/16/171413 Last Action: Reviewed on 09/28/21734 by SISI CEDILLO RN Sennosides/Docusate Sodium (Senna-S 8.6-50 mg Tablet) 1 Each Tablet, 2 EACH PO BID PRN for CONSTIPATION, (Reported) Entered as Reported by: SISI CEDILLO RN on 09/28/21733 Last Action: Reviewed on 09/28/21734 by SISI CEDILLO RN Tramadol Hcl (Tramadol Hcl) 50 Mg Tablet, 100 MG PO BID PRN for PAIN, (Reported) Entered as Reported by: Valerie Powell on 08/16/171413 Last Action: Reviewed on 09/28/21733 by SISI BATLINER, RN Discontinued Medications Meclizine Hcl (Meclizine Hcl) 12.5 Mg Tablet, 1 TAB PO BID for NAUSEA, #60 (Reported) Entered as Reported by: GIANNI WOO on 09/24/21 1542 Last Action: Reviewed on 09/28/21 2119 by SISI CEDILLO RN Justicifation of Admission Dx: Justifications for Admission: Justification of Admission Dx: Yes EVIN CORMIER MD September 28, 2021 17:21
== END 2021-09-28 15:00 | disposition home or self-care (01) | DRG 291 ==
LOC: ER 00:32 → ED HOLD 04:28 → 6 SOUTH 08:00
PROVIDERS: ADMIT Internal Medicine; ATTEND Internal Medicine
PROC: 5A1D70Z Performance of Urinary Filtration, Intermittent, Less than 6 Hours Per Day (ICD-10-PCS; 2021-09-25)
PROC: 5A1D70Z Performance of Urinary Filtration, Intermittent, Less than 6 Hours Per Day (ICD-10-PCS; principal; 2021-09-27)
DX: I13.2 Hypertensive heart and chronic kidney disease with heart failure and with stage 5 chronic kidney disease, or end stage renal disease (principal); I50.43 Acute on chronic combined systolic (congestive) and diastolic (congestive) heart failure; J96.01 Acute respiratory failure with hypoxia; N18.6 End stage renal disease; E87.2 Acidosis; J44.1 Chronic obstructive pulmonary disease with (acute) exacerbation; N17.9 Acute kidney failure, unspecified; D64.9 Anemia, unspecified; E11.22 Type 2 diabetes mellitus with diabetic chronic kidney disease; E11.65 Type 2 diabetes mellitus with hyperglycemia; E66.01 Morbid (severe) obesity due to excess calories; E78.5 Hyperlipidemia, unspecified; E87.5 Hyperkalemia; F17.201 Nicotine dependence, unspecified, in remission; I16.0 Hypertensive urgency; I25.10 Atherosclerotic heart disease of native coronary artery without angina pectoris; I25.5 Ischemic cardiomyopathy; Z20.822 Contact with and (suspected) exposure to COVID-19; Z66 Do not resuscitate; Z82.49 Family history of ischemic heart disease and other diseases of the circulatory system; Z83.3 Family history of diabetes mellitus; Z86.73 Personal history of transient ischemic attack (TIA), and cerebral infarction without residual deficits; Z91.15 Patient's noncompliance with renal dialysis; Z95.1 Presence of aortocoronary bypass graft; Z95.810 Presence of automatic (implantable) cardiac defibrillator; Z99.2 Dependence on renal dialysis; E21.3 Hyperparathyroidism, unspecified; F41.9 Anxiety disorder, unspecified; K21.9 Gastro-esophageal reflux disease without esophagitis; M19.90 Unspecified osteoarthritis, unspecified site; Z88.8 Allergy status to other drugs, medicaments and biological substances; Z68.34 Body mass index [BMI] 34.0-34.9, adult
CPT/HCPCS: 36415; 36600; 71045; 71046; 80048; 80053; 80061; 81001; 82010; 82805; 82962; 83036; 83605; 83880; 84484; 85025; 86317; 86704; 87340; 87426; 93005; 93306; 94640; 94760; 96365; 96366; 96375; J0360; J1200; J1644; J1815; J1940; J2060; J2405; J2920; J2930; J3490; 92526-GN; 92610-GN; 99285-25; C8929; G0378